=== PATIENT | female | born 1995 | race Caucasian/White ===

== ENCOUNTER → 2025-02-28 | Outpatient (CLI) | payer BC, SELFPAY ==
[2025-02-28 16:07] LABS: Absolute Neutrophil Count 4.8 X10^3/uL (2.0-7.7); Basophil# 0.01 X10^3/uL; Basophil% 0.1 % (0-1); Eosinophil# 0.09 X10^3/uL; Eosinophils% 1.3 % (0-5); Hematocrit 37.3 % (37-47); Hemoglobin 12.7 g/dL (12.0-15.0); Mean Corpuscular Hgb 31.1 pg (27.0-32.0); Mean Corpuscular Volume 91.2 fL (81-99); Mean Platelet Vol. 9.3 fl (6.2-12.0); Monocyte# 0.46 X10^3/uL; Monocyte% 6.5 % (0-10); NRBC Flagged by Analyzer 0 % (0-5); Neutrophil % 67.7 % (47-70); Platelet Count 240 K/mm3 (150-450); RBC Distribution Width CV 11.3 % (11.6-14.6); RBC Distribution Width SD 38.2 fl (35.1-43.9); Red Blood Count 4.09 M/mm3 (4.2-5.4); White Blood Count 7.1 K/mm3 (4.4-11.0)
[2025-02-28 17:06] LABS: HIV Nonreactive (Nonreactive); Hepatitis B Surface Antigen Nonreactive (Nonreactive); Hepatitis C Antibody Nonreactive (Nonreactive); Rubella IgG REAC (Nonreactive); Syphilis Antibodies Nonreactive (Nonreactive)
[2025-03-03 21:07] LABS: Chlamydia By Nucleic Acid AMP Negative (Negative); Gonococcus By Nucleic Acid AMP Negative (Negative)
[2025-03-05 07:59] LABS: HPV Reflexed? NOT INDICATED
== END | disposition home or self-care (01) ==
PROVIDERS: Nurse Practitioner Women's Health; Referring Provider Advanced Practice Midwife; Visit Provider Advanced Practice Midwife
DX: Z34.81 Encounter for supervision of other normal pregnancy, first trimester (principal)
CPT/HCPCS: 36415; 85025; 86703; 86762; 86780; 86803; 86850; 86900; 86901; 87086; 87088; 87340; 87491; 87591; 88175; G0145

== ENCOUNTER → 2025-07-14 | Outpatient (CLI) | payer BC, SELFPAY ==
[2025-07-14 16:56] LABS: Hematocrit 30.3 % (37-47); Hemoglobin 10.0 g/dL (12.0-15.0); Immature Granulocytes Count 0.080 X10^3/uL (0.0-0.0); Mean Corp Hgb Conc 33.0 g/dL (32-36); Mean Corpuscular Volume 102.7 fL (81-99); Mean Platelet Vol. 10.0 fl (6.2-12.0); NRBC Flagged by Analyzer 0 % (0-5); Platelet Count 170 K/mm3 (150-450); RBC Distribution Width CV 13.3 % (11.6-14.6); RBC Distribution Width SD 50.3 fl (35.1-43.9); Red Blood Count 2.95 M/mm3 (4.2-5.4); White Blood Count 8.8 K/mm3 (4.4-11.0)
[2025-07-14 17:51] LABS: Glucose Challenge Gest 1H 50g 107 mg/dL (70-140); HIV Nonreactive (Nonreactive); Syphilis Antibodies Nonreactive (Nonreactive)
== END | disposition home or self-care (01) ==
PROVIDERS: Referring Provider Obstetrics & Gynecology; Visit Provider Obstetrics & Gynecology
DX: Z34.81 Encounter for supervision of other normal pregnancy, first trimester (principal); Z13.1 Encounter for screening for diabetes mellitus
CPT/HCPCS: 36415; 82950; 85025; 86703; 86780

== ENCOUNTER → 2025-08-11 | Outpatient (CLI) | payer BC, SELFPAY ==
[2025-08-11 12:24] LABS: Hematocrit 35.1 % (37-47); Hemoglobin 11.7 g/dL (12.0-15.0); Immature Granulocytes Count 0.210 X10^3/uL (0.0-0.0); Mean Corp Hgb Conc 33.3 g/dL (32-36); Mean Corpuscular Volume 100.0 fL (81-99); Mean Platelet Vol. 9.9 fl (6.2-12.0); NRBC Flagged by Analyzer 0 % (0-5); Platelet Count 178 K/mm3 (150-450); RBC Distribution Width CV 13.6 % (11.6-14.6); RBC Distribution Width SD 49.3 fl (35.1-43.9); Red Blood Count 3.51 M/mm3 (4.2-5.4); White Blood Count 12.8 K/mm3 (4.4-11.0)
[2025-08-11 13:27] LABS: Ferritin 28 ng/mL (22-378); Iron 251 ug/dL (50-170); Iron Binding Capacity,Total 394 ug/dL (250-450); Iron Binding Capacity,Unsat 143 ug/dL (228-428); Vitamin B12 260 pg/mL (180-914)
== END | disposition home or self-care (01) ==
PROVIDERS: Obstetrics & Gynecology; Visit Provider Obstetrics & Gynecology
DX: O99.019 Anemia complicating pregnancy, unspecified trimester (principal); Z3A.00 Weeks of gestation of pregnancy not specified
CPT/HCPCS: 36415; 82607; 82728; 83540; 83550; 85025

== ENCOUNTER → 2025-09-18 | Outpatient (CLI) | payer BC, SELFPAY ==
[2025-09-18 12:27] LABS: Hematocrit 34.4 % (37-47); Hemoglobin 11.9 g/dL (12.0-15.0); Immature Granulocytes Count 0.150 X10^3/uL (0.0-0.0); Mean Corp Hgb Conc 34.6 g/dL (32-36); Mean Corpuscular Volume 98.0 fL (81-99); Mean Platelet Vol. 9.7 fl (6.2-12.0); NRBC Flagged by Analyzer 0 % (0-5); Platelet Count 211 K/mm3 (150-450); RBC Distribution Width CV 13.4 % (11.6-14.6); RBC Distribution Width SD 47.8 fl (35.1-43.9); Red Blood Count 3.51 M/mm3 (4.2-5.4); White Blood Count 13.1 K/mm3 (4.4-11.0)
== END | disposition home or self-care (01) ==
LOC: BWCLAB 11:33
PROVIDERS: Obstetrics & Gynecology; Visit Provider Nurse Practitioner Family
DX: O99.019 Anemia complicating pregnancy, unspecified trimester (principal); Z3A.00 Weeks of gestation of pregnancy not specified
CPT/HCPCS: 36415; 85025; 87081

== ENCOUNTER 2025-09-28 23:58 | Inpatient (IN) | payer BC, SELFPAY ==
[2025-09-29] VITALS (32 sets, daily range): BP systolic 95–141; BP diastolic 56–78; PULSE 74–132; RESP 16–18; TEMP 36.4–36.8; O2SAT 90–100; BMI 26.6
--- OUTSIDE RECORDS SUMMARY | 2025-09-29 00:01 | XMS RPT_ITS | CCD ---
Author Organization [facility] [place] [facility] Team Providers Care Merchandiser Retail Representative Name Role Phone Megan SIMONS-CTona Attending Provider [phone] Annette Adames CNM Attending Provider [phone] Annette Adames CNM Referring Provider [phone] Dr. Leeann Starr DO Attending Provider [facility], Primary Care Unavailable JOSEPH JOHNSON Attending Unavailable SABA SANTACRUZ Referring Unavaillaine Santacruz MD, Dr. Walter Attending Provider [phone] Annette Adames CNM Attending Provider [phone] Tona Griffiths Attending Provider [phone] Dr. Saba Santacruz MD Referring Provider [phone] Dr. Leeann Starr DO Attending Physician Annette Adames CNM Attending Physician [phone] Dr. Saba Santacruz MD Attending Physician Tona Griffiths Attending Physician [phone] Dr. Leeann Starr DO Attending Physician Saba Santacruz Attending Unavailable Annette Adames Attending Unavailable Saba Santacruz Attending Unavailable Annette Adames Attending Unavailable Annette Adames Referring Unavailable Saba Santacruz Attending Unavailable Saba Santacruz Referring Unavailable Tona Guzman NP Attending Unavailable Leeann Starr Attending UnavailAnnette Rodriguez Attending Unavailable Leeann Starr Attending UnavailLeeann Vaughan Attending UnavailAnnette Rodriguez Attending Unavailable Saba Santacruz Attending Unavailable Tona Guzman NP Attending Unavailable Leeann Starr Attending Unavaillaine myers Allergies Allergy Classification Reported Allergen(s) Allergy Type Date of Onset Reaction(s) Facility (1 source) Environmental Allergies: Uncoded; Translations: [Environmental Allergies: Uncoded] Propensity to adverse reactions (disorder) [facility] Repository Medications Current Medications Medication Drug Class(es) Dates Sig (Normalized) Sig (Original) fluticasone propionate 0.05 mg/actuat metered dose nasal spray (9 sources) Corticosteroid Start: 02-11-2025 take 50 ug nasal route every twelve hours as needed Fluticasone Propionate (Flonase Allergy Relief) 50 mcg/actuation spray,suspension Active 1 NMA INTRANASAL Q12H as needed February 11, 2025 12:00am administer into each nostril Complies with drug therapy loratadine 10 mg oral tablet (9 sources) Start: 02-11-2025 take 1 tablet by mouth once daily Loratadine (Claritin) 10 mg tablet Active 10 mg PO daily February 11, 2025 12:00am Complies with drug therapy Pnv No.454-Kq-Bk3-Dha-E pa-Fish 400 mcg-35 mg- 25 mg-5 mg tablet,chewable (9 sources) Start: 02-11-2025 Pnv No.210-Hl-Uy5-Dha- Epa-Fish 400 mcg-35 mg- 25 mg-5 mg tablet,chewable Active {tbl} PO February 11, 2025 12:00am Complies with drug therapy Start: 02-11-2025 Start: 02-11-2025 Pnv No.153-Fa- Lo0-Ewo-Qhn-Fish 400 mcg-35 mg- 25 mg-5 mg tablet,chewable Active {tbl} PO February 11, 2025 12:00am Problems Active Problems Problem Classification Problem Date Documented Da te Episodic/Chronic Menstrual disorders (20 sources) Amenorrhea; Translations: [Amenorrhea, unspecified] Onset: 05-22-2025 02-11-2025 Chronic Comment on above: +UPT Other complications of (7 sources) Anemia of ; Translations: [Anemia complicating , unspecified trimester] 07-16-2025 Chronic Comment on above: add Fe add Fe. Iron levels are now good. Other complications of (1 source) Anemia complicating , unspecified trimester; Translations: [Anemia complicating , unspecified trimester] Onset: 08-27-2025 Chronic Other complications of (20 sources) History of hemorrhage; Translations: [Supervision of with other poor reproductive or obstetric history, unspecified trimester] 02-11-2025 Episodic Comment on above: Pt states passed lar ge clots & had 2 shots Other complications of (1 source) Supervision of with other poor reproductive or obstetric history, unspecified trimester; Translations: [Supervision of with other poor reproductive or obstetric history, unspecified trimester] Onset: 08-25-2025 Episodic Other and delivery including normal (20 sources) Normal ; Translations: [Encounter for supervision of normal , unspecified, unspecified trimester] Onset: 06-20-2025 03-04-2025 Episodic Comment on above: [id number], DAISY 09/29/25 , Kem Byers, Bryan declined NIPT & Perez ier testing [id number], DAISY 09/29/25 , surprise Kem Byers, Bryan declined NIPT & Perez ier testing. anatomy done and ventricular septum not fully visualized patient declined follow up. Other screening for suspected conditions (not mental disorders or infectious disease) (2 sources) Encounter for screening for diabetes mellitus; Translations: [Encounter for screening for malignant neoplasm of cervix] Onset: 02-28-2025 Episodic Residual codes; unclassified (1 source) 35 weeks gestation of ; Translations: [35 weeks gestation of ] Onset: 08-25-2025 Episodic Residual codes; unclassified (1 source) 33 weeks gestation of ; Translations: [33 weeks gestation of ] Onset: 08-11-2025 Episodic Residual codes; unclassified (1 source) 31 weeks gestation of ; Translations: [31 weeks gestation of ] Onset: 08-01-2025 Episodic Residual codes; unclassified (1 source) 25 weeks gestation of ; Translations: [25 weeks gestation of ] Onset: 06-20-2025 Episodic Past or Other Problems Problem Classification Problem Date Documented Da te Episodic/Chronic Residual codes; unclassified (1 source) 21 weeks gestation of ; Translations: [21 weeks gestation of ] Onset: 07-24-2025 Episodic Residual codes; unclassified (1 source) 9 weeks gestation of ; Translations: [9 weeks gestation of ] Onset: 02-28-2025 Episodic Results Test Name Value Interpretation Reference Range Facility Laboratory - Chemistry and C hemistry - challengeOrdered By: Annette Adames on 08-25-2025 Glucose Ql (U) Negative [facility] Laboratory - UrinalysisOrder ed By: Annette Adames on 08-25-2025 Protein Ql (U) Negative [facility] Veterinary Radiologist Office Visit Reporton 08-25-2025 Veterinary Radiologist Office Visit Report [facility] [address], [address] [place] [address] OFFICE VISIT Date of Service: 08/25/25 MR#: [id number] Acct: [id number] Name: MERRY CAMPOS Rep #: [id number] : 1995 Provider: JEY Naranjo ams Age/Sex: 30/F Location: [facility] Status: Signed Intake Vital Signs 07/14/25 12:54 08/11/25 09:26 08/25/25 09:14 Height 5 ft 4 in 5 ft 4 in 5 ft 4 in Weight: 155 lb 6 oz BMI 26.6 BP 121/68 H Intake Visit Reasons: 35w ob *PT LEAVING 08/31-09/09 Chief Complaint: 35wk OB Endodontics Dentist Required: No Is patient in pain?: No Allergies Environmental Allergies: Uncoded Allergy (Verified 08/25/25 09:12) Other Medications ???Medication ???Instructions ???Recorded ???Confirmed ???Type PNV 153-FA 400 mcg-om3 35 mg-dha tab PO 02/11/25 08/25/25 History 25 mg-epa 5 mg-fish oil chew tablet fluticasone propionate 50 1 spray intranasal Q12H PRN 08/25/25 History mcg/actuation nasal spray,suspension (Flonase Allergy Relief) loratadine 10 mg tablet (Claritin) 10 mg PO QDAY 02/11/25 08/25/25 History Last Menstrual Period: 12/23/24 : No Have you fallen in the past year?: No PFSH PFSH Medical History Seasonal allergies Surgical History Fred teeth extracted Family History Uncle Diabetes Maternal Grandfather Diabetes Maternal Dementia, Onset Age: 80 Paternal Social History adopted: No household members: spouse, family and children housing: house number of children: 2 current occupational status: unemployed current occupation: [employer] current occupational exposures/hazards: No pets and animals: Yes (Avoid litterbox) pets and animals: cat(s) and dog(s) history of recent travel: No sexually active: Yes Smoking Status: Never smoker alcohol intake: current alcohol intake frequency: a few times a month details: Not while substance use type: does not use well-balanced diet: daily or most days caffeine: Yes (Clean [employer] in afternoon- 74mg caffeine. Education to stay under 200mg/day) Type: coffee Number of servings: 1 and other Number of servings: 1 eating out: 1-3 times/week during the past year weight has: remained stable what type of physical activity do you participate in: other details: farm chores frequency: daily duration: 45-60 minutes/day farhad/taoist: Yarsanism seatbelt use: always do you feel safe at home: Yes additional social history: - [place]- Sales History 3 Elective abortions Hx Para 2 Spontaneous abortions Hx # Term Pregnancies Ectopic pregnancies Hx # Pregnancies Multiple births # of living children 2 Past Pregnancies Del. Date Name GA/Weeks Outcome Route Bth Weight Gen Labor Lgth Anesthesia Del Locatn Provider FOB 02/20/21 Hair 40 live - full term 8# 6oz Male epidural [place] Aul tman [place] 09/21/22 Kem 40 live - full term 8# 12oz Male epidural Maurilio Marcos sas [place] Delivery Date: 09/21/22 Last Updated by: Sylvie Lofton elective IOL @ 40wks, large clots after delivery, had injection to stop bleeding, anemic HPI 35w ob *PT LEAVING 08/31-09/09 Details: MERRY CAMPOS is a 30 year old who presents for routine OB visit. OB Visit DAISY Calculator Estimated Delivery Date Method Current WG Current Estimate 09/29/25 LMP (Certain) 35w 0d Other Estimates 09/26/25 Ultrasound #1 35w 3d Expected Delivery Route/Plan Labor Preferences- CB/BF classes: no labor support person: Rex labor intervention preferences: [] pain management options preferred: epidural cut cord/dad catch: yes : yes PP control planned: discussed discussed possible routes of delivery and associated risks: [] special requests: [] Specific Issue/Plans Covid status: [] Flu vaccine: [] Tdap vaccine: declines Rhogam: NA LARC form signed: yes Problem list reviewed and updated with the most current plan of care details and appropriate orders placed. Relevant counseling for the gestational age provided. Continue routine care and follow up unless otherwise noted in visit notes/problem list details Initial Weight: 130 lb Date -???-???-???-???-? ??-???-???-???-??? -???-???-???- EGA Weight BP Urine Prot -???-???-???-???-? ??-???-???-???-??? -???-???-???- Glucose FHR FuHt Pres Dilation -???-???-???-???-? ??-???-???-???-??? -???-???-???- Effaced St Visit Note 02/28/25 -???-???-???-???-? ??-???-???-???-??? -???-???-???- 9w 4d 130 lb 4 oz (+4 oz) 107/67 -???-???-???-???-? ??-???-??? (more content not included)... Normal [facility] Absolute lymphocyte countOrd ered By: Leeann Astudillo on 08-11-2025 Lymphocytes Auto (Unsp spec) [#/Vol] 1.45 10*3/uL 0.83-4.51 [facility] Absolute neutrophil countOrd ered By: Leeann Astudillo on 08-11-2025 Neutrophils (Bld) [#/Vol] 10.4 10*3/uL High 2.0-7.7 [facility] Automated lymphocyte count a s percentage of total leukocytesOrdered By: Leeann Astudillo on 08-11-2025 Lymphocytes/100 WBC Auto (Unsp spec) 11.3 % Low 19-41 [facility] Basophil percentageOrdered B y: Leeann Astudillo on 08-11-2025 Basophils/100 WBC (Bld) 0.3 % 0-1 [facility] CBC W/Diff, Automatedon 07-30 Absolute Lymph 1.45 X10 3/uL Normal 0.83-4.51 [facility] Comment on above: Performed By: #### L 3890.6006, BTS, L509.4006, L509.8002, L3890.6301, L100.0100, L3890.6102 #### [facility] [address] [place], [address] Absolute Neut 10.4 X10 3/uL High 2.0-7.7 [facility] Comment on above: Performed By: #### L 3890.6006, BTS, L509.4006, L509.8002, L3890.6301, L100.0100, L3890.6102 #### [facility] [address] [place], [address] Basophils/100 WBC (Bld) 0.3 % Normal 0-1 [facility] Comment on above: Performed By: #### L 3890.6006, BTS, L509.4006, L509.8002, L3890.6301, L100.0100, L3890.6102 #### [facility] [address] [place], [address] Eosinophils/100 WBC (Bld) 0.3 % Normal 0-5 [facility] Comment on above: Performed By: #### L 3890.6006, BTS, L509.4006, L509.8002, L3890.6301, L100.0100, L3890.6102 #### [facility] [address] [place], [address] Erythrocyte distribution width (RBC) [Ratio] 13.6 % Normal 11.6-14.6 [facility] Comment on above: Performed By: #### L 3890.6006, BTS, L509.4006, L509.8002, L3890.6301, L100.0100, L3890.6102 #### [facility] [address] [place], [address] Hematocrit (Bld) [Volume fraction] 35.1 % Low 37-47 [facility] Comment on above: Performed By: #### L 3890.6006, BTS, L509.4006, L509.8002, L3890.6301, L100.0100, L3890.6102 #### [facility] [address] [place], [address] Hemoglobin (Bld) [Mass/Vol] 11.7 g/dL Low 12.0-15.0 [facility] Comment on above: Performed By: #### L 3890.6006, BTS, L509.4006, L509.8002, L3890.6301, L100.0100, L3890.6102 #### [facility] [address] [place], [address] IG% 1.600 High 0.0-0.9 [facility] Comment on above: Result Comment: IG% - Immature Granulocytes (promyelocytes, myelocytes and metamyelocytes) > 1% indicates that a LEFT SHIFT is Present. Performed By: #### L 3890.6006, BTS, L509.4006, L509.8002, L3890.6301, L100.0100, L3890.6102 #### [facility] [address] [place], [address] Lymphocytes/100 WBC (Bld) 11.3 % Low 19-41 [facility] Comment on above: Performed By: #### L 3890.6006, BTS, L509.4006, L509.8002, L3890.6301, L100.0100, L3890.6102 #### [facility] [address] [place], [address] MCH (RBC) [Entitic mass] 33.3 pg High 27.0-32.0 [facility] Comment on above: Performed By: #### L 3890.6006, BTS, L509.4006, L509.8002, L3890.6301, L100.0100, L3890.6102 #### [facility] [address] [place], [address] MCHC (RBC) [Mass/Vol] 33.3 g/dL Normal 32-36 [facility] Comment on above: Performed By: #### L 3890.6006, BTS, L509.4006, L509.8002, L3890.6301, L100.0100, L3890.6102 #### [facility] [address] [place], [address] MCV (RBC) [Entitic vol] 100.0 fL High 81-99 [facility] Comment on above: Performed By: #### L 3890.6006, BTS, L509.4006, L509.8002, L3890.6301, L100.0100, L3890.6102 #### [facility] [address] [place], [address] Monocytes/100 WBC (Bld) 5.4 % Normal 0-10 [facility] Comment on above: Performed By: #### L 3890.6006, BTS, L509.4006, L509.8002, L3890.6301, L100.0100, L3890.6102 #### [facility] [address] [place], [address] Neutrophils/100 WBC (Bld) 81.1 % High 47-70 [facility] Comment on above: Performed By: #### L 3890.6006, BTS, L509.4006, L509.8002, L3890.6301, L100.0100, L3890.6102 #### [facility] [address] [place], [address] Nucleated RBC (Bld) [#/Vol] 0 10*3/uL Normal 0-5 [facility] Comment on above: Performed By: #### L 3890.6006, BTS, L509.4006, L509.8002, L3890.6301, L100.0100, L3890.6102 #### [facility] [address] [place], [address] Platelet mean volume (Bld) [Entitic vol] 9.9 fL Normal 6.2-12.0 [facility] Comment on above: Performed By: #### L 3890.6006, BTS, L509.4006, L509.8002, L3890.6301, L100.0100, L3890.6102 #### [facility] [address] [place], [address] Platelets (Bld) [#/Vol] 178 10*3/uL Normal 150-450 [facility] Comment on above: Performed By: #### L 3890.6006, BTS, L509.4006, L509.8002, L3890.6301, L100.0100, L3890.6102 #### [facility] [address] [place], [address] RBC (Bld) [#/Vol] 3.51 10*6/uL Low 4.2-5.4 [facility] Comment on above: Performed By: #### L 3890.6006, BTS, L509.4006, L509.8002, L3890.6301, L100.0100, L3890.6102 #### [facility] [address] [place], [place], [id number] (299 RDW SD 49.3 fl High 35.1-43.9 [facility] Comment on above: Performed By: #### L 3890.6006, BTS, L509.4006, L509.8002, L3890.6301, L100.0100, L3890.6102 #### [facility] [address] [place], [place], [address] WBC (Bld) [#/Vol] 12.8 10*3/uL High 4.4-11.0 [facility] Comment on above: Performed By: #### L 3890.6006, BTS, L509.4006, L509.8002, L3890.6301, L100.0100, L3890.6102 #### [facility] [address] [place], [place], [id number] Eosinophil percentageOrdered By: Leeann Astudillo on 08-11-2025 Eosinophils/100 WBC (Bld) 0.3 % 0-5 [facility] Erythrocyte distribution wid th ratioOrdered By: Leeann Astudillo on 08-11-2025 Erythrocyte distribution width (RBC) [Ratio] 13.6 % 11.6-14.6 [facility] Erythrocyte distribution wid th standard deviationOrdered By: Leeann Astudillo on 08-11-2025 Erythrocyte distribution width (RBC) [Ratio] 49.3 fl High 35.1-43.9 [facility] Ferritinon 08-11-2025 Ferritin [Mass/Vol] 28 ng/mL Normal 22-378 [facility] Comment on above: Performed By: #### L 3890.6006, BTS, L509.4006, L509.8002, L3890.6301, L100.0100, L3890.6102 #### [facility] [address] [place], [address] Hematocrit Auto (Bld) [Volum e fraction]Ordered By: Leeann Astudillo on 08-11-2025 Hematocrit (Bld) [Volume fraction] 35.1 % Low 37-47 [facility] Hemoglobin measurementOrdere d By: Leeann Astudillo on 08-11-2025 Hemoglobin (Bld) [Mass/Vol] 11.7 g/dL Low 12.0-15.0 [facility] Immature granulocytes/100 WB C Auto (Bld)Ordered By: Leeann Astudillo on 08-11-2025 Immature granulocytes/100 WBC (Bld) 1.600 % High 0.0-0.9 [facility] Comment on above: IG% - Immature Granu locytes (promyelocytes, myelocytes and metamyelocytes) > 1% indicates that a LEFT SHIFT is Present. Iron measurement (mass/mass) Ordered By: Leeann Astudillo on 08-11-2025 Iron (Unsp spec) [Mass/Mass] 251 ug/dL High 50-170 [facility] Iron+Iron Binding Capacityon 08-11-2025 Iron [Mass/Vol] 251 ug/dL High 50-170 [facility] Comment on above: Performed By: #### L 3890.6006, BTS, L509.4006, L509.8002, L3890.6301, L100.0100, L3890.6102 #### [facility] [address] [place], [address] IRON SATURATION 63.7 High 13-59 [facility] Comment on above: Performed By: #### L 3890.6006, BTS, L509.4006, L509.8002, L3890.6301, L100.0100, L3890.6102 #### [facility] [address] [place], [address] TIBC 394 ug/dL Normal 250-450 [facility] Comment on above: Performed By: #### L 3890.6006, BTS, L509.4006, L509.8002, L3890.6301, L100.0100, L3890.6102 #### [facility] [address] [place], [address] UIBC 143 ug/dL Low 228-428 [facility] Comment on above: Performed By: #### L 3890.6006, BTS, L509.4006, L509.8002, L3890.6301, L100.0100, L3890.6102 #### [facility] [address] [place], [place], [address] Laboratory - Chemistry and C hemistry - challengeOrdered By: Saba Santacruz on 08-11-2025 Glucose Ql (U) Negative [facility] - UrinalysisOrder ed By: Saba Santacruz on 08-11-2025 Protein Ql (U) Negative [facility] MCV (mean corpuscular volume ) determinationOrdered By: Leeann Astudillo on 08-11-2025 MCV (RBC) [Entitic vol] 100.0 fL High 81-99 [facility] Mean corpuscular hemoglobin (MCH) determinationOrdered By: Leeann Astudillo on 08-11-2025 MCH (RBC) [Entitic mass] 33.3 pg High 27.0-32.0 [facility] Mean corpuscular hemoglobin concentration (MCHC) determinationOrdered By: Leeann Astudillo on 08-11-2025 MCHC (RBC) [Mass/Vol] 33.3 g/dL 32-36 [facility] Mean platelet volume determi nationOrdered By: Leeann Astudillo on 08-11-2025 Platelet mean volume (Bld) [Entitic vol] 9.9 fL 6.2-12.0 [facility] Monocyte percentageOrdered B y: Leeann Astudillo on 08-11-2025 Monocytes/100 WBC (Bld) 5.4 % 0-10 [facility] Neutrophil percentageOrdered By: Leeann Astudillo on 08-11-2025 Neutrophils/100 WBC (Bld) 81.1 % High 47-70 [facility] No Panel InformationOrdered By: Leeann Baudilio on 08-11-2025 Unsaturated Iron Binding Capacity 143 ug/dL Low 228-428 [facility] Nucleated red blood cell per centageOrdered By: Leeann Baudilio on 08-11-2025 Nucleated RBC/100 WBC (Bld) [Ratio] 0 % 0-5 [facility] Veterinary Radiologist Office Visit Reporton 08-11-2025 Veterinary Radiologist Office Visit Report [facility] [address], [address] [place] [address] OFFICE VISIT Date of Service: 08/11/25 MR#: [id number] Acct: [id number] Name: MERRY CAMPOS Rep #: [id number] : 1995 Provider: Dr. Saba urrutia MD Age/Sex: 30/F Location: [facility] Status: Signed Intake Vital Signs 05/22/25 09:21 08/01/25 09:37 08/11/25 09:26 Height 5 ft 4 in 5 ft 4 in 5 ft 4 in Weight: 151 lb 5 oz BMI 25.9 BP 105/69 Intake Visit Reasons: 33 wk ob Endodontics Dentist Required: No Is patient in pain?: No Allergies Environmental Allergies: Uncoded Allergy (Verified 08/11/25 09:27) Other Medications ???Medication ???Instructions ???Recorded ???Confirmed ???Type PNV 153-FA 400 mcg-om3 35 mg-dha tab PO 02/11/25 08/11/25 History 25 mg-epa 5 mg-fish oil chew tablet fluticasone propionate 50 1 spray intranasal Q12H PRN 08/11/25 History mcg/actuation nasal spray,suspension (Flonase Allergy Relief) loratadine 10 mg tablet (Claritin) 10 mg PO QDAY 02/11/25 08/11/25 History Last Menstrual Period: 12/23/24 Zika: Zika virus screening: Negative : No PFSH PFSH Medical History Seasonal allergies Surgical History Fred teeth extracted Family History Uncle Diabetes Maternal Grandfather Diabetes Maternal Dementia, Onset Age: 80 Paternal Social History adopted: No household members: spouse, family and children housing: house number of children: 2 current occupational status: unemployed current occupation: [employer] current occupational exposures/hazards: No pets and animals: Yes (Avoid litterbox) pets and animals: cat(s) and dog(s) history of recent travel: No sexually active: Yes Smoking Status: Never smoker alcohol intake: current alcohol intake frequency: a few times a month details: Not while substance use type: does not use well-balanced diet: daily or most days caffeine: Yes ([employer] in afternoon- 74mg caffeine. Education to stay under 200mg/day) Type: coffee Number of servings: 1 and other Number of servings: 1 eating out: 1-3 times/week during the past year weight has: remained stable what type of physical activity do you participate in: other details: farm chores frequency: daily duration: 45-60 minutes/day farhad/taoist: Yarsanism seatbelt use: always do you feel safe at home: Yes additional social history: - [place]- Sales History 3 Elective abortions Hx Para 2 Spontaneous abortions Hx # Term Pregnancies Ectopic pregnancies Hx # Pregnancies Multiple births # of living children 2 Past Pregnancies Del. Date Name GA/Weeks Outcome Route Bth Weight Infant Gen Labor Lgth Anesthesia Del Locatn Provider FOB 02/20/21 Hair 40 live - full term 8# 6oz Male epidural [place] Aul tman [place] 09/21/22 Kem 40 live - full term 8# 12oz Male epidural Maurilio Marcos sas [place] Delivery Date: 09/21/22 Last Updated by: Sylvie Lofton elective IOL @ 40wks, large clots after delivery, had injection to stop bleeding, anemic HPI 33 wk ob Details: MERRY CAMPOS is a 30 year old who presents for routine OB visit. OB Visit DAISY Calculator Estimated Delivery Date Method Current WG Current Estimate 09/29/25 LMP (Certain) 33w 0d Other Estimates 09/26/25 Ultrasound #1 33w 3d Expected Delivery Route/Plan Labor Preferences- CB/BF classes: no labor support person: Rex labor intervention preferences: [] pain management options preferred: epidural cut cord/dad catch: yes : yes PP control planned: discussed discussed possible routes of delivery and associated risks: [] special requests: [] Specific Issue/Plans Covid status: [] Flu vaccine: [] Tdap vaccine: declines Rhogam: NA LARC form signed: yes Problem list reviewed and updated with the most current plan of care details and appropriate orders placed. Relevant counseling for the gestational age provided. Continue routine care and follow up unless otherwise noted in visit notes/problem list details Initial Weight: 130 lb Date -???-???-???-???-? ??-???-???-???-??? -???-???-???- EGA Weight BP Urine Prot -???-???-???-???-? ??-???-???-???-??? -???-???-???- Glucose FHR FuHt Pres Dilation -???-???-???-???-? ??-???-???-???-??? -???-???-???- Effaced St Visit Note 02/28/25 -???-???-???-???-? ??-???-???-???-??? -???-???-???- 9w 4d 130 lb 4 oz (+4 oz) 107/67 -???-???-???-???-? ??-???-???-???-??? -???-???-???- 173 -???-???-???-???-? ??-? (more content not included)... Normal [facility] Platelet countOrdered By: Jose Astudillo on 08-11-2025 Platelets (Bld) [#/Vol] 178 10*3/uL 150-450 [facility] RBC Auto (Bld) [#/Vol]Ordere d By: Leeann Astudillo on 08-11-2025 RBC (Bld) [#/Vol] 3.51 10*6/uL Low 4.2-5.4 [facility] Serum or plasma ferritin hari surement (mass/volume)Ordered By: Leeann Astudillo on 08-11-2025 Ferritin [Mass/Vol] 28 ng/mL 22-378 [facility] Serum or plasma iron saturat ion measurement (mass fraction)Ordered By: Leeann Astudillo on 08-11-2025 Iron saturation [Mass fraction] 63.7 % High 13-59 [facility] Vitamin B12on 08-11-2025 Cobalamin (Vitamin B12) [Mass/Vol] 260 pg/mL Normal 180-914 [facility] Comment on above: Performed By: #### L 3890.6006, BTS, L509.4006, L509.8002, L3890.6301, L100.0100, L3890.6102 #### [facility] [address] [place], [address] Vitamin B12 ser/plasOrdered By: Leeann Astudillo on 08-11-2025 Cobalamin (Vitamin B12) [Mass/Vol] 260 pg/mL 180-914 [facility] White blood cell (WBC) count Ordered By: Leeann Astudillo on 08-11-2025 WBC (Bld) [#/Vol] 12.8 10*3/uL High 4.4-11.0 [facility] Veterinary Radiologist Office Visit Reporton 08-01-2025 Veterinary Radiologist Office Visit Report [facility]'s [address], [address] [place] [address] OFFICE VISIT Date of Service: 08/01/25 MR#: [id number] Acct: [id number] Name: MERRY CAMPOS Rep #: [id number] 0 : 1995 Provider: Dr. Leeann Chen DO Age/Sex: 30/F Location: [facility] Status: Signed Intake Vital Signs 05/22/25 09:21 07/14/25 12:54 08/01/25 09:37 Height 5 ft 4 in 5 ft 4 in 5 ft 4 in Weight: 148 lb 9 oz BMI 25.4 BP 110/71 Intake Visit Reasons: 31 wk 4d ob Endodontics Dentist Required: No Is patient in pain?: No Allergies Environmental Allergies: Uncoded Allergy (Verified 08/01/25 09:39) Other Medications ???Medication ???Instructions ???Recorded ???Confirmed ???Type PNV 153-FA 400 mcg-om3 35 mg-dha tab PO 02/11/25 08/01/25 History 25 mg-epa 5 mg-fish oil chew tablet fluticasone propionate 50 1 spray intranasal Q12H PRN 08/01/25 History mcg/actuation nasal spray,suspension (Flonase Allergy Relief) loratadine 10 mg tablet (Claritin) 10 mg PO QDAY 02/11/25 08/01/25 History Last Menstrual Period: 12/23/24 Zika: Zika virus screening: Negative : No PFSH PFSH Medical History Seasonal allergies Surgical History Fred teeth extracted Family History Uncle Diabetes Maternal Grandfather Diabetes Maternal Dementia, Onset Age: 80 Paternal Social History adopted: No household members: spouse, family and children housing: house number of children: 2 current occupational status: unemployed current occupation: [employer] current occupational exposures/hazards: No pets and animals: Yes (Avoid litterbox) pets and animals: cat(s) and dog(s) history of recent travel: No sexually active: Yes Smoking Status: Never smoker alcohol intake: current alcohol intake frequency: a few times a month details: Not while substance use type: does not use well-balanced diet: daily or most days caffeine: Yes (Clean Energy in afternoon- 74mg caffeine. Education to stay under 200mg/day) Type: coffee Number of servings: 1 and other Number of servings: 1 eating out: 1-3 times/week during the past year weight has: remained stable what type of physical activity do you participate in: other details: farm chores frequency: daily duration: 45-60 minutes/day farhad/taoist: Yarsanism seatbelt use: always do you feel safe at home: Yes additional social history: - Bryan- Juan History 3 Elective abortions Hx Para 2 Spontaneous abortions Hx # Term Pregnancies Ectopic pregnancies Hx # Pregnancies Multiple births # of living children 2 Past Pregnancies Del. Date Name GA/Weeks Outcome Route Bth Weight Infant Gen Labor Lgth Anesthesia Del Locatn Provider FOB 02/20/21 Hair 40 live - full term 8# 6oz Male epidural [place] Aul tman [place] 09/21/22 [place] 40 live - full term 8# 12oz Male epidural Maurilio Marcos sas [place] Delivery Date: 09/21/22 Last Updated by: Sylvie Lofton elective IOL @ 40wks, large clots after delivery, had injection to stop bleeding, anemic HPI 31 wk 4d ob Details: MERRY CAMPOS is a 30 year old who presents for routine OB visit. OB Visit DAISY Calculator Estimated Delivery Date Method Current WG Current Estimate 09/29/25 LMP (Certain) 31w 4d Other Estimates 09/26/25 Ultrasound #1 32w 0d Expected Delivery Route/Plan Labor Preferences- CB/BF classes: no labor support person: Rex labor intervention preferences: [] pain management options preferred: epidural cut cord/dad catch: yes : yes PP control planned: discussed discussed possible routes of delivery and associated risks: [] special requests: [] Specific Issue/Plans Covid status: [] Flu vaccine: [] Tdap vaccine: declines Rhogam: NA LARC form signed: yes Problem list reviewed and updated with the most current plan of care details and appropriate orders placed. Relevant counseling for the gestational age provided. Continue routine care and follow up unless otherwise noted in visit notes/problem list details Initial Weight: 130 lb Date -???-???-???-???-? ??-???-???-???-??? -???-???-???- EGA Weight BP Urine Prot -???-???-???-???-? ??-???-???-???-??? -???-???-???- Glucose FHR FuHt Pres Dilation -???-???-???-???-? ??-???-???-???-??? -???-???-???- Effaced St Visit Note 02/28/25 -???-???-???-???-? ??-???-???-???-??? -???-???-???- 9w 4d 130 lb 4 oz (+4 oz) 107/67 -???-???-???-???-? ??-???-???-???-??? -???-???-???- 173 -? (more content not included)... Normal [facility] Absolute lymphocyte countOrd ered By: Saba Latiftroy on 07-14-2025 Lymphocytes Auto (Unsp spec) [#/Vol] 0.86 10*3/uL 0.83-4.51 [facility] Absolute neutrophil countOrd ered By: Saba Latiftroy on 07-14-2025 Neutrophils (Bld) [#/Vol] 7.0 10*3/uL 2.0-7.7 [facility] Automated lymphocyte count a s percentage of total leukocytesOrdered By: Saba Brayan on 07-14-2025 Lymphocytes/100 WBC Auto (Unsp spec) 9.8 % Low 19-41 [facility] Basophil percentageOrdered B y: Saba Brayan on 07-14-2025 Basophils/100 WBC (Bld) 0.2 % 0-1 [facility] CBC W/Diff, Automatedon 06-30 Absolute Lymph 0.86 X10 3/uL Normal 0.83-4.51 [facility] Comment on above: Performed By: #### L 3890.6006, L100.0100, L501.0250, L509.8002 #### [facility] [address] [place], [address] Absolute Neut 7.0 X10 3/uL Normal 2.0-7.7 [facility] Comment on above: Performed By: #### L 3890.6006, L100.0100, L501.0250, L509.8002 #### [facility] [address] [place], [address] Basophils/100 WBC (Bld) 0.2 % Normal 0-1 [facility] Comment on above: Performed By: #### L 3890.6006, L100.0100, L501.0250, L509.8002 #### [facility] [address] [place], [address] Eosinophils/100 WBC (Bld) 1.1 % Normal 0-5 [facility] Comment on above: Performed By: #### L 3890.6006, L100.0100, L501.0250, L509.8002 #### [facility] [address] [place], [address] Erythrocyte distribution width (RBC) [Ratio] 13.3 % Normal 11.6-14.6 [facility] Comment on above: Performed By: #### L 3890.6006, L100.0100, L501.0250, L509.8002 #### [facility] [address] [place], [address] Hematocrit (Bld) [Volume fraction] 30.3 % Low 37-47 [facility] Comment on above: Performed By: #### L 3890.6006, L100.0100, L501.0250, L509.8002 #### [facility] [address] [place], [address] Hemoglobin (Bld) [Mass/Vol] 10.0 g/dL Low 12.0-15.0 [facility] Comment on above: Performed By: #### L 3890.6006, L100.0100, L501.0250, L509.8002 #### [facility] [address] [place], [address] IG% 0.900 Normal 0.0-0.9 [facility] Comment on above: Result Comment: IG% - Immature Granulocytes (promyelocytes, myelocytes and metamyelocytes) > 1% indicates that a LEFT SHIFT is Present. Performed By: #### L 3890.6006, L100.0100, L501.0250, L509.8002 #### [facility] [address] [place], [address] Lymphocytes/100 WBC (Bld) 9.8 % Low 19-41 [facility] Comment on above: Performed By: #### L 3890.6006, L100.0100, L501.0250, L509.8002 #### [facility] [address] [place], [address] MCH (RBC) [Entitic mass] 33.9 pg High 27.0-32.0 [facility] Comment on above: Performed By: #### L 3890.6006, L100.0100, L501.0250, L509.8002 #### [facility] [address] [place], [address] MCHC (RBC) [Mass/Vol] 33.0 g/dL Normal 32-36 [facility] Comment on above: Performed By: #### L 3890.6006, L100.0100, L501.0250, L509.8002 #### [facility] [address] [place], [address] MCV (RBC) [Entitic vol] 102.7 fL High 81-99 [facility] Comment on above: Performed By: #### L 3890.6006, L100.0100, L501.0250, L509.8002 #### [facility] [address] [place], [address] Monocytes/100 WBC (Bld) 8.0 % Normal 0-10 [facility] Comment on above: Performed By: #### L 3890.6006, L100.0100, L501.0250, L509.8002 #### [facility] [address] [place], [address] Neutrophils/100 WBC (Bld) 80.0 % High 47-70 [facility] Comment on above: Performed By: #### L 3890.6006, L100.0100, L501.0250, L509.8002 #### [facility] [address] [place], [address] Nucleated RBC (Bld) [#/Vol] 0 10*3/uL Normal 0-5 [facility] Comment on above: Performed By: #### L 3890.6006, L100.0100, L501.0250, L509.8002 #### [facility] [address] [place], [address] Platelet mean volume (Bld) [Entitic vol] 10.0 fL Normal 6.2-12.0 [facility] Comment on above: Performed By: #### L 3890.6006, L100.0100, L501.0250, L509.8002 #### [facility] [address] [place], [address] Platelets (Bld) [#/Vol] 170 10*3/uL Normal 150-450 [facility] Comment on above: Performed By: #### L 3890.6006, L100.0100, L501.0250, L509.8002 #### [facility] [address] [place], [address] RBC (Bld) [#/Vol] 2.95 10*6/uL Low 4.2-5.4 [facility] Comment on above: Performed By: #### L 3890.6006, L100.0100, L501.0250, L509.8002 #### [facility] [address] [place], [address] RDW SD 50.3 fl High 35.1-43.9 [facility] Comment on above: Performed By: #### L 3890.6006, L100.0100, L501.0250, L509.8002 #### [facility] [address] [place], [address] WBC (Bld) [#/Vol] 8.8 10*3/uL Normal 4.4-11.0 [facility] Comment on above: Performed By: #### L 3890.6006, L100.0100, L501.0250, L509.8002 #### [facility] [address] [place], [address] Eosinophil percentageOrdered By: Saba Santacruz on 07-14-2025 Eosinophils/100 WBC (Bld) 1.1 % 0-5 [facility] Erythrocyte distribution wid th ratioOrdered By: Saba Santacruz on 07-14-2025 Erythrocyte distribution width (RBC) [Ratio] 13.3 % 11.6-14.6 [facility] Erythrocyte distribution wid th standard deviationOrdered By: Saba Santacruz on 07-14-2025 Erythrocyte distribution width (RBC) [Ratio] 50.3 fl High 35.1-43.9 [facility] Glucose Challenge Gest 1H 50 farrukh 07-14-2025 GLU GEST 50g 1H 107 mg/dL Normal 70-140 [facility] Comment on above: Performed By: #### L 3890.6006, L100.0100, L501.0250, L509.8002 #### [facility] [address] [place], [address] Glucose measurement at 2 marco rs post-dose gestational glucose tolerance testOrdered By: Saba Santacruz on 07-14-2025 Glucose [Mass/Vol] 107 mg/dL 70-140 [facility] HIVon 07-14-2025 HIV Non-Reactive Normal Nonreactive [facility] Comment on above: Result Comment: Non- Reactive Reactive Repeatedly reactive samples must be confirmed according to CDC recommended confirmatory algorithms. The subresults for either HIVAG or AHIV can be used as an aid in the selection of the confirmation algorithm for reactive samples. Send out specimens with Reactive results to [facility] for confirmation. Order the HIV antibody detection and differentiation: lc#[id number] Performed By: #### L 3890.6006, BTS, L509.4006, L509.8002, L3890.6301, L100.0100, L3890.6102 #### [facility] [address] [place], [address] Hematocrit Auto (Bld) [Volum e fraction]Ordered By: Saba Santacruz on 07-14-2025 Hematocrit (Bld) [Volume fraction] 30.3 % Low 37-47 [facility] Hemoglobin measurementOrdere d By: Saba Santacruz on 07-14-2025 Hemoglobin (Bld) [Mass/Vol] 10.0 g/dL Low 12.0-15.0 [facility] Immature granulocytes/100 WB C Auto (Bld)Ordered By: Saba Santacruz on 07-14-2025 Immature granulocytes/100 WBC (Bld) 0.900 % 0.0-0.9 [facility] Comment on above: IG% - Immature Granu locytes (promyelocytes, myelocytes and metamyelocytes) > 1% indicates that a LEFT SHIFT is Present. Laboratory - Chemistry and C hemistry - challengeOrdered By: Tona Guzman on 07-14-2025 Glucose Ql (U) Negative [facility] - UrinalysisOrder ed By: Tona Guzman on 07-14-2025 Protein Ql (U) Negative [facility] MCV (mean corpuscular volume ) determinationOrdered By: Saba Santacruz on 07-14-2025 MCV (RBC) [Entitic vol] 102.7 fL High 81-99 [facility] Mean corpuscular hemoglobin (MCH) determinationOrdered By: Saba Brayan on 07-14-2025 MCH (RBC) [Entitic mass] 33.9 pg High 27.0-32.0 [facility] Mean corpuscular hemoglobin concentration (MCHC) determinationOrdered By: Saba Brayan on 07-14-2025 MCHC (RBC) [Mass/Vol] 33.0 g/dL 32-36 [facility] Mean platelet volume determi nationOrdered By: Saba Santacruz on 07-14-2025 Platelet mean volume (Bld) [Entitic vol] 10.0 fL 6.2-12.0 [facility] Monocyte percentageOrdered B y: Saba Brayan on 07-14-2025 Monocytes/100 WBC (Bld) 8.0 % 0-10 [facility] Neutrophil percentageOrdered By: Sababrenda Santacruz on 07-14-2025 Neutrophils/100 WBC (Bld) 80.0 % High 47-70 [facility] No Panel InformationOrdered By: Saba Brayan on 07-14-2025 HIV (1&2) Antibody Non-Reactive Nonreactive [facility] Comment on above: Non-ReactiveReactive Repeatedly reactive samples must be confirmed according to CDC recommended confirmatory algorithms. The subresults for either HIVAG or AHIV can be used as an aid in the selection of the confirmation algorithm for reactive samples.Send out specimens with Reactive results to [facility] for confirmation.Order the HIV antibody detection and differentiation: #[id number] Nucleated red blood cell per centageOrdered By: Saba Brayan on 07-14-2025 Nucleated RBC/100 WBC (Bld) [Ratio] 0 % 0-5 [facility] Veterinary Radiologist Office Visit Reporton 07-14-2025 Veterinary Radiologist Office Visit Report [facility] [address], [address] [place] [address] OFFICE VISIT Date of Service: 07/14/25 MR#: [id number] Acct: [id number] Name: MERRY CAMPOS Rep #: [id number] : 1995 Provider: OMI garcia Age/Sex: 30/F Location: [facility] Status: Signed Intake Vital Signs 05/22/25 09:21 06/20/25 09:22 07/14/25 12:54 Height 5 ft 4 in 5 ft 4 in 5 ft 4 in Weight: 150 lb 7 oz BMI 25.8 BP 111/71 Intake Visit Reasons: 29 wk ob glucose Chief Complaint: 29 Week OB Endodontics Dentist Required: No Is patient in pain?: No Allergies Environmental Allergies: Uncoded Allergy (Verified 07/14/25 12:54) Other Medications ???Medication ???Instructions ???Recorded ???Confirmed ???Type PNV 153-FA 400 mcg-om3 35 mg-dha tab PO 02/11/25 07/14/25 History 25 mg-epa 5 mg-fish oil chew tablet fluticasone propionate 50 1 spray intranasal Q12H PRN 07/14/25 History mcg/actuation nasal spray,suspension (Flonase Allergy Relief) loratadine 10 mg tablet (Claritin) 10 mg PO QDAY 02/11/25 07/14/25 History Last Menstrual Period: 12/23/24 Zika: Zika virus screening: Negative : Yes PFSH PFSH Medical History Seasonal allergies Surgical History Fred teeth extracted Family History Uncle Diabetes Maternal Grandfather Diabetes Maternal Dementia, Onset Age: 80 Paternal Social History adopted: No household members: spouse, family and children housing: house number of children: 2 current occupational status: unemployed current occupation: [employer] current occupational exposures/hazards: No pets and animals: Yes (Avoid litterbox) pets and animals: cat(s) and dog(s) history of recent travel: No sexually active: Yes Smoking Status: Never smoker alcohol intake: current alcohol intake frequency: a few times a month details: Not while substance use type: does not use well-balanced diet: daily or most days caffeine: Yes (Clean Energy in afternoon- 74mg caffeine. Education to stay under 200mg/day) Type: coffee Number of servings: 1 and other Number of servings: 1 eating out: 1-3 times/week during the past year weight has: remained stable what type of physical activity do you participate in: other details: farm chores frequency: daily duration: 45-60 minutes/day farhad/taoist: Yarsanism seatbelt use: always do you feel safe at home: Yes additional social history: - Bruce Martinez History 3 Elective abortions Hx Para 2 Spontaneous abortions Hx # Term Pregnancies Ectopic pregnancies Hx # Pregnancies Multiple births # of living children 2 Past Pregnancies Del. Date Name GA/Weeks Outcome Route Bth Weight Gen Labor Lgth Anesthesia Del Locatn Provider FOB 02/20/21 Hair 40 live - full term 8# 6oz Male epidural [place] Aul tman [place] 09/21/22 [place] 40 live - full term 8# 12oz Male epidural Maurilio Marcos sas [place] Delivery Date: 09/21/22 Last Updated by: Sylvie Lofton elective IOL @ 40wks, large clots after delivery, had injection to stop bleeding, anemic HPI 29 wk ob glucose Details: MERRY CAMPOS is a 30 year old who presents for routine OB visit. OB Visit DAISY Calculator Estimated Delivery Date Method Current WG Current Estimate 09/29/25 LMP (Certain) 29w 0d Other Estimates 09/26/25 Ultrasound #1 29w 3d Expected Delivery Route/Plan Labor Preferences- CB/BF classes: no labor support person: Rex labor intervention preferences: [] pain management options preferred: epidural cut cord/dad catch: yes : yes PP control planned: discussed discussed possible routes of delivery and associated risks: [] special requests: [] Specific Issue/Plans Covid status: [] Flu vaccine: [] Tdap vaccine: declines Rhogam: NA LARC form signed: yes Problem list reviewed and updated with the most current plan of care details and appropriate orders placed. Relevant counseling for the gestational age provided. Continue routine care and follow up unless otherwise noted in visit notes/problem list details Initial Weight: 130 lb Date -???-???-???-???-? ??-???-???-???-??? -???-???-???- EGA Weight BP Urine Prot -???-???-???-???-? ??-???-???-???-??? -???-???-???- Glucose FHR FuHt Pres Dilation -???-???-???-???-? ??-???-???-???-??? -???-???-???- Effaced St Visit Note 02/28/25 -???-???-???-???-? ??-???-???-???-??? -???-???-???- 9w 4d 130 lb 4 oz (+4 oz) 107/67 -???-???-???-???-? ??-???-??? (more content not included)... Normal [facility] Platelet countOrdered By: Daniel Santacruz on 07-14-2025 Platelets (Bld) [#/Vol] 170 10*3/uL 150-450 [facility] RBC Auto (Bld) [#/Vol]Ordere d By: Saba Santacruz on 07-14-2025 RBC (Bld) [#/Vol] 2.95 10*6/uL Low 4.2-5.4 [facility] Syphilis Antibodieson 2024 Syphilis Abs Non-Reactive Normal Nonreactive [facility] Comment on above: Performed By: #### L 3890.6006, BTS, L509.4006, L509.8002, L3890.6301, L100.0100, L3890.6102 #### [facility] [address] [place], [address] White blood cell (WBC) count Ordered By: Saba Santacruz on 07-14-2025 WBC (Bld) [#/Vol] 8.8 10*3/uL 4.4-11.0 [facility] Laboratory - Chemistry and C hemistry - challengeOrdered By: Saba Santacruz on 06-20-2025 Glucose Ql (U) Negative [facility] - UrinalysisOrder ed By: Saba Santacruz on 06-20-2025 Protein Ql (U) Negative [facility] Veterinary Radiologist Office Visit Reporton 06-20-2025 Veterinary Radiologist Office Visit Report [facility] [address], [address] [place] [address] OFFICE VISIT Date of Service: 06/20/25 MR#: [id number] Acct: [id number] Name: MERRY CAMPOS Rep #: [id number] 2 : 1995 Provider: Dr. Saba urrutia MD Age/Sex: 30/F Location: [facility] Status: Signed Intake Vital Signs 04/25/25 08:48 05/22/25 09:21 06/20/25 09:22 Height 5 ft 4 in 5 ft 4 in 5 ft 4 in Weight: 142 lb 1 oz BMI 24.3 BP 101/66 Intake Visit Reasons: 25wk ob Endodontics Dentist Required: No Is patient in pain?: No Feel stressed/tense/ner vous/anxious/diffi culty sleeping: not at all Allergies Environmental Allergies: Uncoded Allergy (Verified 06/20/25 09:27) Other Medications ???Medication ???Instructions ???Recorded ???Confirmed ???Type PNV 153-FA 400 mcg-om3 35 mg-dha tab PO 02/11/25 06/20/25 History 25 mg-epa 5 mg-fish oil chew tablet fluticasone propionate 50 1 spray intranasal Q12H PRN 06/20/25 History mcg/actuation nasal spray,suspension (Flonase Allergy Relief) loratadine 10 mg tablet (Claritin) 10 mg PO QDAY 02/11/25 06/20/25 History Last Menstrual Period: 12/23/24 Zika: Zika virus screening: Negative : No PFSH PFSH Medical History Seasonal allergies Surgical History Fred teeth extracted Family History Uncle Diabetes Maternal Grandfather Diabetes Maternal Dementia, Onset Age: 80 Paternal Social History adopted: No household members: spouse, family and children housing: house number of children: 2 current occupational status: unemployed current occupation: [employer] current occupational exposures/hazards: No pets and animals: Yes (Avoid litterbox) pets and animals: cat(s) and dog(s) history of recent travel: No sexually active: Yes Smoking Status: Never smoker alcohol intake: current alcohol intake frequency: a few times a month details: Not while substance use type: does not use well-balanced diet: daily or most days caffeine: Yes ([employer] in afternoon- 74mg caffeine. Education to stay under 200mg/day) Type: coffee Number of servings: 1 and other Number of servings: 1 eating out: 1-3 times/week during the past year weight has: remained stable what type of physical activity do you participate in: other details: farm chores frequency: daily duration: 45-60 minutes/day farhad/taoist: Yarsanism seatbelt use: always do you feel safe at home: Yes additional social history: - Bryan- Sales History 3 Elective abortions Hx Para 2 Spontaneous abortions Hx # Term Pregnancies Ectopic pregnancies Hx # Pregnancies Multiple births # of living children 2 Past Pregnancies Del. Date Name GA/Weeks Outcome Route Bth Weight Infant Gen Labor Lgth Anesthesia Del Locatn Provider FOB 02/20/21 Hair 40 live - full term 8# 6oz Male epidural [place] Aul tman [place] 09/21/22 Yaredptin 40 live - full term 8# 12oz Male epidural Maurilio Marcos sas [place] Delivery Date: 09/21/22 Last Updated by: Sylvie Lofton elective IOL @ 40wks, large clots after delivery, had injection to stop bleeding, anemic HPI 25wk ob Details: MERRY CAMPOS is a 30 year old who presents for routine OB visit. OB Visit DAISY Calculator Estimated Delivery Date Method Current WG Current Estimate 09/29/25 LMP (Certain) 25w 4d Other Estimates 09/26/25 Ultrasound #1 26w 0d Expected Delivery Route/Plan Labor Preferences- CB/BF classes: [] labor support person: [] labor intervention preferences: [] pain management options preferred: [] cut cord/dad catch: [] : [] PP control planned: [] discussed possible routes of delivery and associated risks: [] special requests: [] Specific Issue/Plans Covid status: [] Flu vaccine: [] Tdap vaccine: [] Rhogam: [] LARC form signed: [] Problem list reviewed and updated with the most current plan of care details and appropriate orders placed. Relevant counseling for the gestational age provided. Continue routine care and follow up unless otherwise noted in visit notes/problem list details Initial Weight: 130 lb Date -???-???-???-???-? ??-???-???-???-??? -???-???-???- EGA Weight BP Urine Prot -???-???-???-???-? ??-???-???-???-??? -???-???-???- Glucose FHR FuHt Pres Dilation -???-???-???-???-? ??-???-???-???-??? -???-???-???- Effaced St Visit Note 02/28/25 -???-???-???-???-? ??-???-???-???-??? -???-???-???- 9w 4d 130 lb 4 oz (+4 oz) 107/67 -???-???-???-???-? ??-???-???-???-??? (more content not included)... Normal [facility] - Chemistry and C hemistry - challengeOrdered By: Annette Adames on 05-22-2025 Glucose Ql (U) Negative [facility] - UrinalysisOrder ed By: Annette Adames on 05-22-2025 Protein Ql (U) Negative [facility] Veterinary Radiologist Office Visit Reporton 05-22-2025 Veterinary Radiologist Office Visit Report [facility] [address], [address] [place] [address] OFFICE VISIT Date of Service: 05/22/25 MR#: [id number] Acct: [id number] Name: MERRY CAMPOS Rep #: [id number] 9 : 1995 Provider: JEY Naranjo ams Age/Sex: 29/F Location: [facility] Status: Signed Intake Vital Signs 04/25/25 08:48 05/22/25 09:21 Height 5 ft 4 in 5 ft 4 in Weight: 142 lb 2 oz BMI 24.3 BP 103/58 L Intake Visit Reasons: 21wk ob Chief Complaint: 21wk OB Endodontics Dentist Required: No Is patient in pain?: No Allergies Environmental Allergies: Uncoded Allergy (Verified 05/22/25 09:21) Other Medications ???Medication ???Instructions ???Recorded ???Confirmed ???Type PNV 153-FA 400 mcg-om3 35 mg-dha tab PO 02/11/25 05/22/25 History 25 mg-epa 5 mg-fish oil chew tablet fluticasone propionate 50 1 spray intranasal Q12H PRN 05/22/25 History mcg/actuation nasal spray,suspension (Flonase Allergy Relief) loratadine 10 mg tablet (Claritin) 10 mg PO QDAY 02/11/25 05/22/25 History Last Menstrual Period: 12/23/24 : No PFSH PFSH Medical History Seasonal allergies Surgical History Fred teeth extracted Family History Uncle Diabetes Maternal Grandfather Diabetes Maternal Dementia, Onset Age: 80 Paternal Social History adopted: No household members: spouse, family and children housing: house number of children: 2 current occupational status: unemployed current occupation: [employer] current occupational exposures/hazards: No pets and animals: Yes (Avoid litterbox) pets and animals: cat(s) and dog(s) history of recent travel: No sexually active: Yes Smoking Status: Never smoker alcohol intake: current alcohol intake frequency: a few times a month details: Not while substance use type: does not use well-balanced diet: daily or most days caffeine: Yes (Clean Energy in afternoon- 74mg caffeine. Education to stay under 200mg/day) Type: coffee Number of servings: 1 and other Number of servings: 1 eating out: 1-3 times/week during the past year weight has: remained stable what type of physical activity do you participate in: other details: farm chores frequency: daily duration: 45-60 minutes/day farhad/taoist: Yarsanism seatbelt use: always do you feel safe at home: Yes additional social history: - Bryan- Juan History 3 Elective abortions Hx Para 2 Spontaneous abortions Hx # Term Pregnancies Ectopic pregnancies Hx # Pregnancies Multiple births # of living children 2 Past Pregnancies Del. Date Name GA/Weeks Outcome Route Bth Weight Infant Gen Labor Lgth Anesthesia Del Locatn Provider FOB 02/20/21 Hair 40 live - full term 8# 6oz Male epidural [place] Aul tman [place] 09/21/22 Kiptin 40 live - full term 8# 12oz Male epidural Maurilio Marcos sas [place] Delivery Date: 09/21/22 Last Updated by: Sylvie Lofton elective IOL @ 40wks, large clots after delivery, had injection to stop bleeding, anemic HPI 21wk ob Details: MERRY CAMPOS is a 29 year old who presents for routine OB visit. OB Visit DAISY Calculator Estimated Delivery Date Method Current WG Current Estimate 09/29/25 LMP (Certain) 21w 3d Other Estimates 09/26/25 Ultrasound #1 21w 6d Expected Delivery Route/Plan Labor Preferences- CB/BF classes: [] labor support person: [] labor intervention preferences: [] pain management options preferred: [] cut cord/dad catch: [] : [] PP control planned: [] discussed possible routes of delivery and associated risks: [] special requests: [] Specific Issue/Plans Covid status: [] Flu vaccine: [] Tdap vaccine: [] Rhogam: [] LARC form signed: [] Problem list reviewed and updated with the most current plan of care details and appropriate orders placed. Relevant counseling for the gestational age provided. Continue routine care and follow up unless otherwise noted in visit notes/problem list details Initial Weight: 130 lb Date -???-???-???-???-? ??-???-???-???-??? -???-???-???- EGA Weight BP Urine Prot -???-???-???-???-? ??-???-???-???-??? -???-???-???- Glucose FHR FuHt Pres Dilation -???-???-???-???-? ??-???-???-???-??? -???-???-???- Effaced St Visit Note 02/28/25 -???-???-???-???-? ??-???-???-???-??? -???-???-???- 9w 4d 130 lb 4 oz (+4 oz) 107/67 -???-???-???-???-? ??-???-???-???-??? -???-???-???- 173 -???-???-???-???-? ??-???-???-???-??? -???-???-???- KW- CRL cons with dates. declines NIPT 03/28/25 -?? (more content not included)... Normal [facility] - Chemistry and C hemistry - challengeOrdered By: Leeann Astudillo on 04-25-2025 Glucose Ql (U) Negative [facility] - UrinalysisOrder ed By: Leeann Astudillo on 04-25-2025 Protein Ql (U) Negative [facility] Veterinary Radiologist Office Visit Reporton 04-25-2025 Veterinary Radiologist Office Visit Report [facility] [address], [address] [place] [address] OFFICE VISIT Date of Service: 04/25/25 MR#: [id number] Acct: [id number] Name: MERRY CAMPOS Rep #: [id number] 2 : 1995 Provider: Dr. Leeann Chen DO Age/Sex: 29/F Location: [facility] Status: Signed Intake Vital Signs 02/28/25 14:53 03/28/25 14:22 04/25/25 08:48 04/25/25 08:48 Height 5 ft 4 in 5 ft 4 in 5 ft 4 in 5 ft 4 in Weight: 138 lb 8 oz BMI 23.8 BP 109/70 Intake Visit Reasons: 17 wk ob Endodontics Dentist Required: No Is patient in pain?: No Allergies Environmental Allergies: Uncoded Allergy (Verified 04/25/25 08:47) Other Medications ???Medication ???Instructions ???Recorded ???Confirmed ???Type PNV 153-FA 400 mcg-om3 35 mg-dha tab PO 02/11/25 04/25/25 History 25 mg-epa 5 mg-fish oil chew tablet fluticasone propionate 50 1 spray intranasal Q12H PRN 04/25/25 History mcg/actuation nasal spray,suspension (Flonase Allergy Relief) loratadine 10 mg tablet (Claritin) 10 mg PO QDAY 02/11/25 04/25/25 History Last Menstrual Period: 12/23/24 Zika: Zika virus screening: Negative : No PFSH PFSH Medical History Seasonal allergies Surgical History Fred teeth extracted Family History Uncle Diabetes Maternal Grandfather Diabetes Maternal Dementia, Onset Age: 80 Paternal Social History adopted: No household members: spouse, family and children housing: house number of children: 2 current occupational status: unemployed current occupation: [employer] current occupational exposures/hazards: No pets and animals: Yes (Avoid litterbox) pets and animals: cat(s) and dog(s) history of recent travel: No sexually active: Yes Smoking Status: Never smoker alcohol intake: current alcohol intake frequency: a few times a month details: Not while substance use type: does not use well-balanced diet: daily or most days caffeine: Yes (Clean Energy in afternoon- 74mg caffeine. Education to stay under 200mg/day) Type: coffee Number of servings: 1 and other Number of servings: 1 eating out: 1-3 times/week during the past year weight has: remained stable what type of physical activity do you participate in: other details: farm chores frequency: daily duration: 45-60 minutes/day farhad/taoist: Yarsanism seatbelt use: always do you feel safe at home: Yes additional social history: - Bryan- Juan History 3 Elective abortions Hx Para 2 Spontaneous abortions Hx # Term Pregnancies Ectopic pregnancies Hx # Pregnancies Multiple births # of living children 2 Past Pregnancies Del. Date Name GA/Weeks Outcome Route Bth Weight Gen Labor Lgth Anesthesia Del Locatn Provider FOB 02/20/21 Hair 40 live - full term 8# 6oz Male epidural [place] Aul tman Bryan 09/21/22 [place] 40 live - full term 8# 12oz Male epidural Maurilio Marcos sas [place] Delivery Date: 09/21/22 Last Updated by: Sylvie Lofton elective IOL @ 40wks, large clots after delivery, had injection to stop bleeding, anemic HPI 17 wk ob Details: MERRY CAMPOS is a 29 year old who presents for routine OB visit. OB Visit DAISY Calculator Estimated Delivery Date Method Current WG Current Estimate 09/29/25 LMP (Certain) 17w 4d Other Estimates 09/26/25 Ultrasound #1 18w 0d Expected Delivery Route/Plan Labor Preferences- CB/BF classes: [] labor support person: [] labor intervention preferences: [] pain management options preferred: [] cut cord/dad catch: [] : [] PP control planned: [] discussed possible routes of delivery and associated risks: [] special requests: [] Specific Issue/Plans Covid status: [] Flu vaccine: [] Tdap vaccine: [] Rhogam: [] LARC form signed: [] Problem list reviewed and updated with the most current plan of care details and appropriate orders placed. Relevant counseling for the gestational age provided. Continue routine care and follow up unless otherwise noted in visit notes/problem list details Initial Weight: 130 lb Date -???-???-???-???-? ??-???-???-???-??? -???-???-???- EGA Weight BP Urine Prot -???-???-???-???-? ??-???-???-???-??? -???-???-???- Glucose FHR FuHt Pres Dilation -???-???-???-???-? ??-???-???-???-??? -???-???-???- Effaced St Visit Note 02/28/25 -???-???-???-???-? ??-???-???-???-??? -???-???-???- 9w 4d 130 lb 4 oz (+4 oz) 107/67 -???-???-???-???-? ??-???-???-???-??? -???-???-???- 173 -???-???-???-?? (more content not included)... Normal [facility] - Chemistry and C hemistry - challengeOrdered By: Saba Santacruz on 03-28-2025 Glucose Ql (U) Negative [facility] - UrinalysisOrder ed By: Saba Santacruz on 03-28-2025 Protein Ql (U) Negative [facility] Veterinary Radiologist Office Visit Reporton 03-28-2025 Veterinary Radiologist Office Visit Report [facility], [address] [place] [address] OFFICE VISIT Date of Service: 03/28/25 MR#: [id number] Acct: [id number] Name: MERRY CAMPOS Rep #: [id number] : 1995 Provider: Dr. Leeann Chen, Age/Sex: 29/F Location: [facility] Status: Signed Intake Vital Signs 02/11/25 09:00 02/28/25 14:53 03/28/25 14:22 Height 5 ft 4 in 5 ft 4 in 5 ft 4 in Weight: 131 lb 130 lb 4 oz 134 lb 6 oz BMI 22.4 22.3 23.1 BP 90/60 107/67 115/80 Blood Pressure Location Lt brachial Position Sitting Intake Visit Reasons: 13wk OB Endodontics Dentist Required: No Is patient in pain?: No Allergies Environmental Allergies: Uncoded Allergy (Verified 03/28/25 14:24) Other Medications ???Medication ???Instructions ???Recorded ???Confirmed ???Type PNV 153-FA 400 mcg-om3 35 mg-dha tab PO 02/11/25 03/28/25 History 25 mg-epa 5 mg-fish oil chew tablet fluticasone propionate 50 1 spray intranasal Q12H PRN 03/28/25 History mcg/actuation nasal spray,suspension (Flonase Allergy Relief) loratadine 10 mg tablet (Claritin) 10 mg PO QDAY 02/11/25 03/28/25 History Last Menstrual Period: 12/23/24 Zika: Zika virus screening: Negative : No PFSH PFSH Medical History Seasonal allergies Surgical History Fred teeth extracted Family History Uncle Diabetes Maternal Grandfather Diabetes Maternal Dementia, Onset Age: 80 Paternal Social History adopted: No household members: spouse, family and children housing: house number of children: 2 current occupational status: unemployed current occupation: [employer] current occupational exposures/hazards: No pets and animals: Yes (Avoid litterbox) pets and animals: cat(s) and dog(s) history of recent travel: No sexually active: Yes Smoking Status: Never smoker alcohol intake: current alcohol intake frequency: a few times a month details: Not while substance use type: does not use well-balanced diet: daily or most days caffeine: Yes (Clean Energy in afternoon- 74mg caffeine. Education to stay under 200mg/day) Type: coffee Number of servings: 1 and other Number of servings: 1 eating out: 1-3 times/week during the past year weight has: remained stable what type of physical activity do you participate in: other details: farm chores frequency: daily duration: 45-60 minutes/day farhad/taoist: Yarsanism seatbelt use: always do you feel safe at home: Yes additional social history: - Bryan- Sales History 3 Elective abortions Hx Para 2 Spontaneous abortions Hx # Term Pregnancies Ectopic pregnancies Hx # Pregnancies Multiple births # of living children 2 Past Pregnancies Del. Date Name GA/Weeks Outcome Route Bth Weight Infant Gen Labor Lgth Anesthesia Del Locatn Provider FOB 02/20/21 Hair 40 live - full term 8# 6oz Male epidural [place] Aul tman Bryan 09/21/22 [place] 40 live - full term 8# 12oz Male epidural Maurilio Marcos sas [place] Delivery Date: 09/21/22 Last Updated by: Sylvie Lofton elective IOL @ 40wks, large clots after delivery, had injection to stop bleeding, anemic HPI 13wk OB Details: MERRY CAMPOS is a 29 year old who presents for routine OB visit. OB Visit DAISY Calculator Estimated Delivery Date Method Current WG Current Estimate 09/29/25 LMP (Certain) 13w 5d Other Estimates 09/26/25 Ultrasound #1 14w 1d Expected Delivery Route/Plan Labor Preferences- CB/BF classes: [] labor support person: [] labor intervention preferences: [] pain management options preferred: [] cut cord/dad catch: [] : [] PP control planned: [] discussed possible routes of delivery and associated risks: [] special requests: [] Specific Issue/Plans Covid status: [] Flu vaccine: [] Tdap vaccine: [] Rhogam: [] LARC form signed: [] Problem list reviewed and updated with the most current plan of care details and appropriate orders placed. Relevant counseling for the gestational age provided. Continue routine care and follow up unless otherwise noted in visit notes/problem list details Initial Weight: 130 lb Date -???-???-???-???-? ??-???-???-???-??? -???-???-???- EGA Weight BP Urine Prot -???-???-???-???-? ??-???-???-???-??? -???-???-???- Glucose FHR FuHt Pres Dilation -???-???-???-???-? ??-???-???-???-??? -???-???-???- Effaced St Visit Note 02/28/25 -???-???-???-???-? ??-???-???-???-??? -???-???-???- 9w 4d 130 lb 4 oz (+4 oz) 107/67 -???-?? (more content not included)... Normal [facility] PAP I-G w/rfx hrHPV-Aptimaon 03-04-2025 ADEQ Comment Normal . [facility] Comment on above: Order Comment: Speci men Comment: [id number] Specimen Comment: Source.............Cervix;Endocervix Specimen Comment: Other.............. Specimen Comment: No. of containers..01 ThinPrep Vial Result Comment: Sati sfactory for evaluation. No endocervical component is identified. Performed By: #### L 7400.0353 #### [facility], [address] COMM . Normal . [facility] Comment on above: Order Comment: Speci men Comment: [id number] Specimen Comment: Source.............Cervix;Endocervix Specimen Comment: Other.............. Specimen Comment: No. of containers..01 ThinPrep Vial Performed By: #### L 7400.0353 #### [facility] [address] [place], [place], [id number] COMMENT Comment Normal . [facility] Comment on above: Order Comment: Speci men Comment: [id number] Specimen Comment: Source.............Cervix;Endocervix Specimen Comment: Other.............. Specimen Comment: No. of containers..01 ThinPrep Vial Result Comment: This liquid based ThinPrep(R) pap test was screened with the use of an image guided system. Performed By: #### L 7400.0353 #### [facility] [address] [facility]. [place], [place], [id number] DIAG Comment Normal . [facility] Comment on above: Order Comment: Speci men Comment: [id number] Specimen Comment: Source.............Cervix;Endocervix Specimen Comment: Other.............. Specimen Comment: No. of containers..01 ThinPrep Vial Result Comment: NEGA TIVE FOR INTRAEPITHELIAL LESION OR MALIGNANCY. Performed By: #### L 7400.0353 #### [facility] [address] [place], [place], [id number] HPV RFLX Comment Normal . [facility] Comment on above: Order Comment: Speci men Comment: [id number] Specimen Comment: Source.............Cervix;Endocervix Specimen Comment: Other.............. Specimen Comment: No. of containers..01 ThinPrep Vial Result Comment: The HPV DNA reflex criteria were not met with this specimen result therefore, no HPV testing was performed. Performed at: [address] [id number] Balance Wheel Arm Burnisher: Angeline Genao MD, Phone: [phone] Performed By: #### L 7400.0353 #### [facility] [address] [place], [place], [address] PAPSMR Comment Normal . [facility] Comment on above: Order Comment: Speci men Comment: [id number] Specimen Comment: Source.............Cervix;Endocervix Specimen Comment: Other.............. Specimen Comment: No. of containers..01 ThinPrep Vial Result Comment: The Pap smear is a screening test designed to aid in the detection of premalignant and malignant conditions of the uterine cervix. It is not a diagnostic procedure and should not be used as the sole means of detecting cervical cancer. Both false-positive and false-negative reports do occur. Performed By: #### L 7400.0353 #### [facility] [address] [place], [place], [id number] PERFORM Comment Normal . [facility] Comment on above: Order Comment: Speci men Comment: [id number] Specimen Comment: Source.............Cervix;Endocervix Specimen Comment: Other.............. Specimen Comment: No. of containers..01 ThinPrep Vial Result Comment: Saima Olson Lapping Machine Set Up Operator (ASCP) Performed By: #### Zac 7400.0353 #### [facility] [address] [place], [place], [id number] Chlamydia/GC DAMION aptimaon CHLAMY,NUC ACID Negative Normal Negative [facility] Comment on above: Performed By: #### L 3890.6006, BTS, L509.4006, L509.8002, L3890.6301, L100.0100, L3890.6102 #### [facility] [address] [place], [address] GC BY NUC ACID Negative Normal Negative [facility] Comment on above: Result Comment: Perf ormed at: =G - [facility] [address], [id number] Balance Wheel Arm Burnisher: Angeline Genao MD, Phone: [phone] Performed By: #### L 3890.6006, BTS, L509.4006, L509.8002, L3890.6301, L100.0100, L3890.6102 #### [facility] [address] [facility] [place], [address] Urine Cultureon 03-02-2025 [facility] Mixed Gram Positive Organisms Cowan Count 11,000-25,000 MIXC Mixed contaminants. Submit a new specimen if indicated. Normal [facility] Comment on above: Performed By: #### L 3890.6006, BTS, L509.4006, L509.8002, L3890.6301, L100.0100, L3890.6102 #### [facility] [address] [facility]. [place], [place], [id number] Absolute lymphocyte countOrd ered By: Tona Guzman on 02-28-2025 Lymphocytes Auto (Unsp spec) [#/Vol] 1.70 10*3/uL 0.83-4.51 [facility] Absolute neutrophil countOrd ered By: Tona Guzman on 02-28-2025 Neutrophils (Bld) [#/Vol] 4.8 10*3/uL 2.0-7.7 [facility] Automated lymphocyte count a s percentage of total leukocytesOrdered By: Tona Guzman on 02-28-2025 Lymphocytes/100 WBC Auto (Unsp spec) 24.0 % 19-41 [facility] Basophil percentageOrdered B y: Tona Guzman on 02-28-2025 Basophils/100 WBC (Bld) 0.1 % 0-1 [facility] CBC W/Diff, Automatedon Absolute Lymph 1.70 X10 3/uL Normal 0.83-4.51 [facility] Comment on above: Performed By: #### L 3890.6006, BTS, L509.4006, L509.8002, L3890.6301, L100.0100, L3890.6102 #### [facility] [address] [place], [address] Absolute Neut 4.8 X10 3/uL Normal 2.0-7.7 [facility] Comment on above: Performed By: #### L 3890.6006, BTS, L509.4006, L509.8002, L3890.6301, L100.0100, L3890.6102 #### [facility] [address] [place], [address] Basophils/100 WBC (Bld) 0.1 % Normal 0-1 [facility] Comment on above: Performed By: #### L 3890.6006, BTS, L509.4006, L509.8002, L3890.6301, L100.0100, L3890.6102 #### [facility] [address] [place], [address] Eosinophils/100 WBC (Bld) 1.3 % Normal 0-5 [facility] Comment on above: Performed By: #### L 3890.6006, BTS, L509.4006, L509.8002, L3890.6301, L100.0100, L3890.6102 #### [facility] [address] [place], [address] Erythrocyte distribution width (RBC) [Ratio] 11.3 % Low 11.6-14.6 [facility] Comment on above: Performed By: #### L 3890.6006, BTS, L509.4006, L509.8002, L3890.6301, L100.0100, L3890.6102 #### [facility] [address] [place], [address] Hematocrit (Bld) [Volume fraction] 37.3 % Normal 37-47 [facility] Comment on above: Performed By: #### L 3890.6006, BTS, L509.4006, L509.8002, L3890.6301, L100.0100, L3890.6102 #### [facility] [address] [place], [address] Hemoglobin (Bld) [Mass/Vol] 12.7 g/dL Normal 12.0-15.0 [facility] Comment on above: Performed By: #### L 3890.6006, BTS, L509.4006, L509.8002, L3890.6301, L100.0100, L3890.6102 #### [facility] [address] [place], [address] IG% 0.400 Normal 0.0-0.9 [facility] Comment on above: Result Comment: IG% - Immature Granulocytes (promyelocytes, myelocytes and metamyelocytes) > 1% indicates that a LEFT SHIFT is Present. Performed By: #### L 3890.6006, BTS, L509.4006, L509.8002, L3890.6301, L100.0100, L3890.6102 #### [facility] [address] [place], [address] Lymphocytes/100 WBC (Bld) 24.0 % Normal 19-41 [facility] Comment on above: Performed By: #### L 3890.6006, BTS, L509.4006, L509.8002, L3890.6301, L100.0100, L3890.6102 #### [facility] [address] [place], [address] MCH (RBC) [Entitic mass] 31.1 pg Normal 27.0-32.0 [facility] [facility] Comment on above: Performed By: #### L 3890.6006, BTS, L509.4006, L509.8002, L3890.6301, L100.0100, L3890.6102 #### [facility] [address] [place], [address] MCHC (RBC) [Mass/Vol] 34.0 g/dL Normal 32-36 [facility] Comment on above: Performed By: #### L 3890.6006, BTS, L509.4006, L509.8002, L3890.6301, L100.0100, L3890.6102 #### [facility] [address] [place], [address] MCV (RBC) [Entitic vol] 91.2 fL Normal 81-99 [facility] Comment on above: Performed By: #### L 3890.6006, BTS, L509.4006, L509.8002, L3890.6301, L100.0100, L3890.6102 #### [facility] [address] [place], [address] Monocytes/100 WBC (Bld) 6.5 % Normal 0-10 [facility] Comment on above: Performed By: #### L 3890.6006, BTS, L509.4006, L509.8002, L3890.6301, L100.0100, L3890.6102 #### [facility] [address] [place], [address] Neutrophils/100 WBC (Bld) 67.7 % Normal 47-70 [facility] Comment on above: Performed By: #### L 3890.6006, BTS, L509.4006, L509.8002, L3890.6301, L100.0100, L3890.6102 #### [facility] [address] [place], [address] Nucleated RBC (Bld) [#/Vol] 0 10*3/uL Normal 0-5 [facility] Comment on above: Performed By: #### L 3890.6006, BTS, L509.4006, L509.8002, L3890.6301, L100.0100, L3890.6102 #### [facility] [address] [place], [address] Platelet mean volume (Bld) [Entitic vol] 9.3 fL Normal 6.2-12.0 [facility] Comment on above: Performed By: #### L 3890.6006, BTS, L509.4006, L509.8002, L3890.6301, L100.0100, L3890.6102 #### [facility] [address] [place], [address] Platelets (Bld) [#/Vol] 240 10*3/uL Normal 150-450 [facility] Comment on above: Performed By: #### L 3890.6006, BTS, L509.4006, L509.8002, L3890.6301, L100.0100, L3890.6102 #### [facility] [address] [place], [address] RBC (Bld) [#/Vol] 4.09 10*6/uL Low 4.2-5.4 [facility] Comment on above: Performed By: #### L 3890.6006, BTS, L509.4006, L509.8002, L3890.6301, L100.0100, L3890.6102 #### [facility] [address] [place], [address] RDW SD 38.2 fl Normal 35.1-43.9 [facility] Comment on above: Performed By: #### L 3890.6006, BTS, L509.4006, L509.8002, L3890.6301, L100.0100, L3890.6102 #### [facility] [address] [place], [address] WBC (Bld) [#/Vol] 7.1 10*3/uL Normal 4.4-11.0 [facility] Comment on above: Performed By: #### L 3890.6006, BTS, L509.4006, L509.8002, L3890.6301, L100.0100, L3890.6102 #### [facility] [address] [place], [address] Cervical or vagninal specime n microscopic examination by cytology stain (reported asOrdered By: Annette Adames on 02-28-2025 Cytology report Cyto stain Doc (Cvx/Vag) Comment . [facility] Comment on above: The Pap smear is a s creening test designed to aid in thedetection of premalignant and malignant conditions of theuterine cervix. It is not a diagnostic procedure andshould not be used as the sole means of detecting cervicalcancer. Both false-positive and false-negative reports dooccur. Chlamydia trachomatis rRNA d etection by probe and target amplification methodOrdered By: Tona Guzman on 02-28-2025 C. trachomatis rRNA DAMION+probe Ql (Unsp spec) Negative Negative [facility] Eosinophil percentageOrdered By: [facility] on 02-28-2025 Eosinophils/100 WBC (Bld) 1.3 % 0-5 [facility] Erythrocyte distribution wid th ratioOrdered By: Tona Megan on 02-28-2025 Erythrocyte distribution width (RBC) [Ratio] 11.3 % Low 11.6-14.6 [facility] Erythrocyte distribution wid th standard deviationOrdered By: [facility] on 02-28-2025 Erythrocyte distribution width (RBC) [Ratio] 38.2 fl 35.1-43.9 [facility] HIVon 02-28-2025 HIV Non-Reactive Normal Nonreactive [facility] Comment on above: Result Comment: Non- Reactive Reactive Repeatedly reactive samples must be confirmed according to CDC recommended confirmatory algorithms. The subresults for either HIVAG or AHIV can be used as an aid in the selection of the confirmation algorithm for reactive samples. Send out specimens with Reactive results to [facility] for confirmation. Order the HIV antibody detection and differentiation: lc#[id number] Performed By: #### L 3890.6006, BTS, L509.4006, L509.8002, L3890.6301, L100.0100, L3890.6102 #### [facility] [address] [place], [address] Hematocrit Auto (Bld) [Volum e fraction]Ordered By: Tona Guzman on 02-28-2025 Hematocrit (Bld) [Volume fraction] 37.3 % 37-47 [facility] Hemoglobin measurementOrdere d By: Tona [place] on 02-28-2025 Hemoglobin (Bld) [Mass/Vol] 12.7 g/dL 12.0-15.0 [facility] Hepatitis C Antibodyon 02-28 Hepatitis C Ab Non-Reactive Normal Nonreactive [facility] Comment on above: Result Comment: Reac tive: Presumptive evidence of antibodies to HCV. Follow CDC recommendations for supplemental testing. Non-Reactive: Antibodies to HCV were not detected; does not exclude the possibility of exposure to HCV Reactive Results are presumptive evidence of antibodies to HCV. Follow CDC recommendations for supplemental testing. Order confirmation testing: HCV Quant by PCR testing - HCVPCR #[id number] Non Reactive: < 0.8 Equivocal: >/= 0.8 to < 1.0 Reactive: >/= 1.0 The CDC requires that a reactive/equivocal HCV antibody result be sent out for confirmation. HCV Quant by PCR testing. Performed By: #### L 3890.6006, BTS, L509.4006, L509.8002, L3890.6301, L100.0100, L3890.6102 #### [facility] [address] [place], [place], [address] Immature granulocytes/100 WB C Auto (Bld)Ordered By: Tona Guzman on 02-28-2025 Immature granulocytes/100 WBC (Bld) 0.400 % 0.0-0.9 [facility] Comment on above: IG% - Immature Granu locytes (promyelocytes, myelocytes and metamyelocytes) > 1% indicates that a LEFT SHIFT is Present. L3890.6102on 02-28-2025 HEP B Surf Ag Non-Reactive Normal Nonreactive [facility] Comment on above: Result Comment: Reac tive: Presumptive evidence of HBV. Repeatedly reactive samples must be confirmed using a neutralization test ([employer] HBsAg Confirmatory Test) Non-Reactive: HBsAg not detected; does not exclude the possibility of exposure to HBV Performed By: #### L 3890.6006, BTS, L509.4006, L509.8002, L3890.6301, L100.0100, L3890.6102 #### [facility] [address] [place], [address] L509.4006on 02-28-2025 Rubella IgG REAC Normal Nonreactive [facility] Comment on above: Result Comment: Anti body Result: Interpretation Non-Reactive: Non-Immune Reactive: Immune The following results were obtained with the [employer] Rubella IgG assay. Results from assays of other manufacturers cannot be used interchangeably. Performed By: #### L 3890.6006, BTS, L509.4006, L509.8002, L3890.6301, L100.0100, L3890.6102 #### [facility] [address] [place], [address] Laboratory - CytologyOrdered By: Annette Adames on 02-28-2025 Lapping Machine Set Up Operator Cyto stain Nom (Cvx/Vag) [ID] Comment . [facility] Comment on above: Saima Olson, Cytolo gist (ASCP) Laboratory - Microbiology an d Antimicrobial susceptibilityOrdered By: Tona Guzman on 02-28-2025 HBV surface Ag Ql (S) Non-Reactive Nonreactive [facility] Comment on above: Reactive: Presumptiv e evidence of HBV. Repeatedly reactive samples must be confirmed using a neutralization test ([employer] HBsAg Confirmatory Test)Non-Reactive: HBsAg not detected; does not exclude the possibility of exposure to HBV Laboratory - Miscellaneous t estsOrdered By: Annette Adames on 02-28-2025 Service comment (Unsp spec) [Interp] . . [facility] MCV (mean corpuscular volume ) determinationOrdered By: Tona Guzman on 02-28-2025 MCV (RBC) [Entitic vol] 91.2 fL 81-99 [facility] Mean corpuscular hemoglobin (MCH) determinationOrdered By: Tona Guzman on 02-28-2025 MCH (RBC) [Entitic mass] 31.1 pg 27.0-32.0 [facility] Mean corpuscular hemoglobin concentration (MCHC) determinationOrdered By: Tona Guzman on 02-28-2025 MCHC (RBC) [Mass/Vol] 34.0 g/dL 32-36 [facility] Mean platelet volume determi nationOrdered By: Tona Guzman on 02-28-2025 Platelet mean volume (Bld) [Entitic vol] 9.3 fL 6.2-12.0 [facility] Monocyte percentageOrdered B y: Tona Guzman on 02-28-2025 Monocytes/100 WBC (Bld) 6.5 % 0-10 [facility] Neisseria gonorrhoeae nuclei c acid detection by amplified probe techniqueOrdered By: Tonanatalia Guzman on 02-28-2025 N. gonorrhoeae DNA DAMION+probe Ql (Unsp spec) Negative Negative [facility] Comment on above: Performed at: =[address] [id number] Director: Angeline Genao MD, Phone: [phone] Neutrophil percentageOrdered By: Tona Guzman on 02-28-2025 Neutrophils/100 WBC (Bld) 67.7 % 47-70 [facility] No Panel InformationOrdered By: Annette Adames on 02-28-2025 Pap Smear Specimen Adequacy Comment . [facility] Comment on above: Satisfactory for regina luation. No endocervical component is identified. No Panel InformationOrdered By: Tona Guzman on 02-28-2025 HIV (1&2) Antibody Non-Reactive Nonreactive [facility] Comment on above: Non-ReactiveReactive Repeatedly reactive samples must be confirmed according to CDC recommended confirmatory algorithms. The subresults for either HIVAG or AHIV can be used as an aid in the selection of the confirmation algorithm for reactive samples.Send out specimens with Reactive results to [facility] for confirmation.Order the HIV antibody detection and differentiation: #[id number] Nucleated red blood cell per centageOrdered By: Tona Guzman on 02-28-2025 Nucleated RBC/100 WBC (Bld) [Ratio] 0 % 0-5 [facility] Veterinary Radiologist Office Visit Reporton 02-28-2025 Veterinary Radiologist Office Visit Report [facility] [address], [address] [place] [address] OFFICE VISIT Date of Service: 02/28/25 MR#: [id number] Acct: [id number] Name: MERRY CROWE Rep #: [id number] : 1995 Provider: JEY Naranjo ams Age/Sex: 29/F Location: [facility] Status: Signed Intake Vital Signs 02/11/25 09:00 02/28/25 14:53 Height 5 ft 4 in 5 ft 4 in Weight: 130 lb 4 oz BMI 22.3 BP 107/67 Intake Visit Reasons: NEW OB LMP 12/23 DAISY 09/29 Chief Complaint: New OB Endodontics Dentist Required: No Is patient in pain?: No Allergies Environmental Allergies: Uncoded Allergy (Verified 02/28/25 14:51) Other Medications ???Medication ???Instructions ???Recorded ???Confirmed ???Type PNV 153-FA 400 mcg-om3 35 mg-dha tab PO 02/11/25 02/28/25 History 25 mg-epa 5 mg-fish oil chew tablet fluticasone propionate 50 1 spray intranasal Q12H PRN 02/28/25 History mcg/actuation nasal spray,suspension (Flonase Allergy Relief) loratadine 10 mg tablet (Claritin) 10 mg PO QDAY 02/11/25 02/28/25 History Last Menstrual Period: 12/23/24 PFSH PFSH Medical History Seasonal allergies Surgical History Fred teeth extracted Family History Uncle Diabetes Maternal Grandfather Diabetes Maternal Dementia, Onset Age: 80 Paternal Social History adopted: No household members: spouse, family and children housing: house number of children: 2 current occupational status: unemployed current occupation: [employer] current occupational exposures/hazards: No pets and animals: Yes (Avoid litterbox) pets and animals: cat(s) and dog(s) history of recent travel: No sexually active: Yes Smoking Status: Never smoker alcohol intake: current alcohol intake frequency: a few times a month details: Not while substance use type: does not use well-balanced diet: daily or most days caffeine: Yes ([employer] in afternoon- 74mg caffeine. Education to stay under 200mg/day) Type: coffee Number of servings: 1 and other Number of servings: 1 eating out: 1-3 times/week during the past year weight has: remained stable what type of physical activity do you participate in: other details: farm chores frequency: daily duration: 45-60 minutes/day farhad/taoist: Yarsanism seatbelt use: always do you feel safe at home: Yes additional social history: - [place]- Sales History 3 Elective abortions Hx Para 2 Spontaneous abortions Hx # Term Pregnancies Ectopic pregnancies Hx # Pregnancies Multiple births # of living children 2 Past Pregnancies Del. Date Name GA/Weeks Outcome Route Bth Weight Infant Gen Labor Lgth Anesthesia Del Locatn Provider FOB 02/20/21 Hair 40 live - full term 8# 6oz Male epidural [place] Aul tman [place] 09/21/22 [place] 40 live - full term 8# 12oz Male epidural Maurilio Marcos sas [place] Delivery Date: 09/21/22 Last Updated by: Sylvie Lofton elective IOL @ 40wks, large clots after delivery, had injection to stop bleeding, anemic HPI NEW OB LMP 12/23 DAISY 09/29 Details: MERRY CROWE is a 29 year old who presents for New OB visit. OB Visit DAISY Calculator Estimated Delivery Date Method Current WG Current Estimate 09/29/25 LMP (Certain) 9w 4d Other Estimates 09/26/25 Ultrasound #1 10w 0d Estimated Due Date: 09/29/25 Expected Delivery Route/Plan Labor Preferences- CB/BF classes: [] labor support person: [] labor intervention preferences: [] pain management options preferred: [] cut cord/dad catch: [] : [] PP control planned: [] discussed possible routes of delivery and associated risks: [] special requests: [] Specific Issue/Plans Covid status: [] Flu vaccine: [] Tdap vaccine: [] Rhogam: [] LARC form signed: [] Problem list reviewed and updated with the most current plan of care details and appropriate orders placed. Relevant counseling for the gestational age provided. Continue routine care and follow up unless otherwise noted in visit notes/problem list details Initial Weight: 130 lb Date -???-???-???-???-? ??-???-???-???-??? -???-???-???- EGA Weight BP Urine Prot -???-???-???-???-? ??-???-???-???-??? -???-???-???- Glucose FHR FuHt Pres Dilation -???-???-???-???-? ??-???-???-???-??? -???-???-???- Effaced St Visit Note 02/28/25 -???-???-???-???-? ??-???-???-???-??? -???-???-???- 9w 4d 130 lb 4 oz (+4 oz) 107/67 -???-???-???-???-? ??-???-???-???-??? -???-???-???- 173 -???-???-???-???-? ??-???-???-???-??? -???-???-???- KW- CRL cons with dates. dec (more content not included)... Normal [facility] Platelet countOrdered By: Percy Guzman on 02-28-2025 Platelets (Bld) [#/Vol] 240 10*3/uL 150-450 [facility] RBC Auto (Bld) [#/Vol]Ordere d By: Tona Guzman on 05-02-2025 RBC (Bld) [#/Vol] 4.09 10*6/uL Low 4.2-5.4 [facility] Syphilis Antibodieson 2024 Syphilis Abs Non-Reactive Normal Nonreactive [facility] Comment on above: Performed By: #### L 3890.6006, BTS, L509.4006, L509.8002, L3890.6301, L100.0100, L3890.6102 #### [facility] [address] [place], [address] Type AND Screenon 02-28-2025 Ab SCREEN GEL Negative Normal [facility] Comment on above: Order Comment: PN Performed By: #### L 3890.6006, BTS, L509.4006, L509.8002, L3890.6301, L100.0100, L3890.6102 #### [facility] [address] [place], [place], [address] Urine cultureOrdered By: Ritchie Guzman on 02-28-2025 Bacteria identified Cx Nom (U) Positive Abnormal [facility] White blood cell (WBC) count Ordered By: Tona Guzman on 02-28-2025 WBC (Bld) [#/Vol] 7.1 10*3/uL 4.4-11.0 [facility] - Chemistry and C hemistry - challengeOrdered By: Tona Guzman on 02-11-2025 HCG ( test) Ql (U) Positive [facility] Office Visit Reporton 2024 Office Visit Report [facility] [address] [place] [address] OFFICE VISIT Date of Service: 02/11/25 MR#: [id number] Acct: [id number] Patient: MERRY CROWE Rep #: [id number] : 1995 Provider: OMI garcia Age/Sex: 29/F Location: [facility] Status: Signed Intake Vital Signs 02/11/25 09:00 Height 5 ft 4 in Weight: 131 lb BMI 22.4 BP 90/60 Blood Pressure Location Lt brachial Position Sitting Intake Visit Reasons: PNOB nurse visit Endodontics Dentist Required: No Is patient in pain?: No Allergies Environmental Allergies: Uncoded Allergy (Verified 02/11/25 09:10) Other Medications ???Medication ???Instructions ???Recorded ???Confirmed ???Type PNV 153-FA 400 mcg-om3 35 mg-dha tab PO 02/11/25 History 25 mg-epa 5 mg-fish oil chew tablet fluticasone propionate 50 1 spray intranasal Q12H PRN History mcg/actuation nasal spray,suspension (Flonase Allergy Relief) loratadine 10 mg tablet (Claritin) 10 mg PO QDAY 02/11/25 02/11/25 History Is last menstrual period known: Yes Last menstrual period: 12/23/24 Post menopausal: No Patient : Yes Current gender identity: female Nurse's Note: Pt here for PNOB. Office UPT: positive. Vitals WNL. PNOB questions completed. Problem list, allergies, and medications updated. Results POC Urine Office , Urine Positive Last Edit by Sylvie Lofton on 02/11/25 09:09 Assessment and Plan Assessment and Plan (1) Amenorrhea: Status: Acute (2) Supervision of normal : Status: Acute Qualifiers: Normal : other normal Trimester: first trimester Qualified Code(s): Z34.81 - Encounter for supervision of other normal , first trimester Comment: , DAISY 09/29/25, Kem Byers, [place] Orders: Orders POC Urine Today N91.2 - Amenorrhea, unspecified 02/11/25 0950 Date Tona Guzman [facility] OFFICER [facility] OFFICER-C Peggyigner Signature: Date (if applicable) CC: Normal [facility] FACIAL/SINUSES W/O CONTRASTo n 09-13-2021 FACIAL/SINUSES W/O CONTRAST MERRY CAMPOS Female [id number] Ordering physician: Ignacio Blair. LOC:CAT [id number] Attending physician: Ignacio Blair 1995 2 4 DOS: 09/13/21 Acc#: [id number] Exam/Proc: FACIAL/SINUSES W/O CONTRAST Dept: COMPUTED TOMOGRAPHY EXAMINATION: CT OF THE FACE WITHOUT MLNFMQMU99/15/2021 9:[address] MAXILLOFACIAL WITHOUT CONTRAST COMPARISON: No direct comparison available TECHNIQUE: CT of the face was performed without the administration of intravenous contrast. Multiplanar reformatted images are provided for review. Dose modulation, iterative reconstruction, and/or weight based adjustment of the mA/kV was utilized to reduce the radiation dose to as low as reasonably achievable. Noncontrast CT performed according to protocol with multiplanar reconstructions . This exam was performed according to our departmental dose optimization program, and includes the following measures where applicable: automated exposure control, adjustment of the mAs and/or kVp according to patient size and/or exam, and an iterative reconstruction algorithm. HISTORY: ORDERING SYSTEM PROVIDED HISTORY: TECHNOLOGIST PROVIDED HISTORY: Reason for Exam: J32.9 FINDINGS: Near complete opacification maxillary sinuses and ethmoid air cells. Mild circumferential mucosal thickening CT noise sinuses and [id number] mucosal thickening inferior aspect frontal sinuses. Moderate right deviation anterior aspect nasal septum. Occluded ostiomeatal complexes bilaterally. Mastoid air cells and middle ears demonstrate normal architecture. Temporomandibular joints normal in appearance. Globes and retro bulbar soft tissue and to the limits of this exam, the intracranial parenchyma, is grossly normal in appearance. Mild thickening adenoids. Nasopharynx and included portion of oropharynx grossly patent. No acute osseous abnormality. IMPRESSION:[] 1. Significant paranasal sinusitis. Electronically signed By Saran Mobley DO 09/13/2021 10:07:56 AM EST Workstation ID : [id number] REPORT SIGNATURE ON FILE Electronically Signed Date/Time: 09/13/21 1007 Dictated Date/time: 09/13/21 1004 CC: Normal [facility] HCG, QUANTITATIVEon 04-05-20 21 HCG, QUANTITATIVE < 1.0 Normal [facility] Comment on above: Result Comment: REFE RENCE RANGE: Male <2 Non- female <6 female 0-1 week 0-50 1-2 weeks 40-300 2-3 weeks 100-1000 3-4 weeks 500-6000 1-2 months [id number] 2-3 months [id number] 2nd trimester [id number] Performed By: #### B HCG #### [address] [address] HHon 02-21-2021 Hematocrit (Bld) [Volume fraction] 31.4 % Low 34.0-46.0 [facility] ([place] Comment on above: Performed By: #### H H #### [address] [address] Hgb 10.8 G/dL Low 12.0-16.0 [facility] [place] Comment on above: Performed By: #### H H #### [address] [address] ABO/Rh (Gel)on 02-20-2021 ABO/Rh Interp Positive Invalid Interpretation Code [facility] [place] Comment on above: Performed By: #### C BC, ADIFF, ANEU, ABOGEL, ABSGEL #### [address] [address] ABS (Gel)on 02-20-2021 ABSC Interp (Gel) Negative Normal [facility] ([place]) Comment on above: Performed By: #### C BC, ADIFF, ANEU, ABOGEL, ABSGEL #### [address] [address] .Auto Diffon 02-19-2021 Basophil, Absolute 0.00 10 3/mcL Normal 0.00-0.27 [facility] ([place]) Comment on above: Performed By: #### C BC, ADIFF, ANEU, ABOGEL, ABSGEL #### [address] [address] Basophils/100 WBC (Bld) 0.2 % Normal 0.0-2.5 [facility] ([place]) Comment on above: Performed By: #### C BC, ADIFF, ANEU, ABOGEL, ABSGEL #### [address] [address] Eosinophil, Absolute 0.00 10 3/mcL Normal 0.00-0.65 [facility] ([place]) Comment on above: Performed By: #### C BC, ADIFF, ANEU, ABOGEL, ABSGEL #### [address] [address] Eosinophils/100 WBC (Bld) 0.2 % Normal 0.0-6.0 [facility] ([place]) Comment on above: Performed By: #### C BC, ADIFF, ANEU, ABOGEL, ABSGEL #### [address] [address] Lymphocyte, Absolute 1.60 10 3/mcL Normal 0.90-4.32 [facility] ([place]) Comment on above: Performed By: #### C BC, ADIFF, ANEU, ABOGEL, ABSGEL #### [address] [address] Lymphocytes/100 WBC (Bld) 14.2 % Low 20.0-40.0 [facility] ([place]) Comment on above: Performed By: #### C BC, ADIFF, ANEU, ABOGEL, ABSGEL #### [address] [address] Monocyte, Absolute 0.80 10 3/mcL Normal 0.09-1.40 [facility] ([place]) Comment on above: Performed By: #### C BC, ADIFF, ANEU, ABOGEL, ABSGEL #### [address] [address] Monocytes/100 WBC (Bld) 6.8 % Normal 2.0-13.0 [facility] ([place]) Comment on above: Performed By: #### C BC, ADIFF, ANEU, ABOGEL, ABSGEL #### [address] [address] Neutrophils/100 WBC (Bld) 78.6 % High 50.0-75.0 [facility] ([place]) Comment on above: Performed By: #### C BC, ADIFF, ANEU, ABOGEL, ABSGEL #### [address] [address] .NEUABSon 02-19-2021 Neutrophil, Absolute 8.90 10 3/mcL High 2.25-8.10 [facility] ([place]) Comment on above: Performed By: #### C BC, ADIFF, ANEU, ABOGEL, ABSGEL #### [address] [address] CBCon 02-19-2021 Erythrocyte distribution width (RBC) [Ratio] 12.8 % Normal 11.5-15.5 [facility] ([place] Comment on above: Performed By: #### C BC, ADIFF, ANEU, ABOGEL, ABSGEL #### [place] [address] Hematocrit (Bld) [Volume fraction] 32.9 % Low 34.0-46.0 [facility] ([place] Comment on above: Performed By: #### C BC, ADIFF, ANEU, ABOGEL, ABSGEL #### [place] [address] Hgb 11.6 G/dL Low 12.0-16.0 [facility] ([place] Comment on above: Performed By: #### C BC, ADIFF, ANEU, ABOGEL, ABSGEL #### [place] [id number] MCH (RBC) [Entitic mass] 33.9 pg High 27.0-33.0 [facility] ([place]) Comment on above: Performed By: #### C BC, ADIFF, ANEU, ABOGEL, ABSGEL #### [place] [id number] MCHC 35.2 G/dL Normal 32.0-36.0 [facility] ([place]) Comment on above: Performed By: #### C BC, ADIFF, ANEU, ABOGEL, ABSGEL #### [address] [address] MCV (RBC) [Entitic vol] 96.3 fL Normal 80.0-99.0 [facility] ([place]) Comment on above: Performed By: #### C BC, ADIFF, ANEU, ABOGEL, ABSGEL #### [address] [id number] Platelet 186 10 3/mcL Normal 150-450 [facility] ([place] Comment on above: Performed By: #### C BC, ADIFF, ANEU, ABOGEL, ABSGEL #### [address] [address] Platelet mean volume (Bld) [Entitic vol] 9.1 fL Normal 6.6-10.5 [facility] [place] Comment on above: Performed By: #### C BC, ADIFF, ANEU, ABOGEL, ABSGEL #### [address] [address] RBC 3.42 10 6/mcL Low 4.10-5.30 [facility] [place] Comment on above: Performed By: #### C BC, ADIFF, ANEU, ABOGEL, ABSGEL #### [address] [address] WBC 11.40 10 3/mcL High 4.50-10.80 [facility] ([place] Comment on above: Performed By: #### C BC, ADIFF, ANEU, ABOGEL, ABSGEL #### [address] [address] Vital Signs Date Time Vital Sign Value Performing Clinician Marcellus moura 08-25-2025 09:14040 Body height 162.[address] Saba Santacruz MD Work Phone: [facility] 08-25-2025 09:14040 Body mass index (BMI) [Ratio] 26.6 kg/m2 Dr. Saba Santacruz MD Work Phone: [facility] 08-25-2025 09:14040 Body weight 70.[address] Saba Santacruz MD Work Phone: [facility] 08-25-2025 09:14-0400 Diastolic blood pressure 68 mm[Hg] Dr. Saba Santacruz MD Work Phone: [facility] 08-25-2025 09:14-0400 Systolic blood pressure 121 mm[Hg] Dr. Saba Santacruz MD Work Phone: [facility] 08-11-2025 09:26-0400 Body mass index (BMI) [Ratio] 25.9 kg/m2 Dr. Saba Santacruz MD Work Phone: [facility] 08-11-2025 09:26-0400 Body weight 68.[address] Saba Santacruz MD Work Phone: [facility] 08-11-2025 09:26-0400 Diastolic blood pressure 69 mm[Hg] Dr. Saba Santacruz MD Work Phone: [facility] 08-11-2025 09:26-0400 Systolic blood pressure 105 mm[Hg] Dr. Saba Santacruz MD Work Phone: [phone])304-172836 [place] [address] 08-01-2025 09:37-0400 Body height 162.[address] Saba Santacruz MD Work Phone: [facility] 08-01-2025 09:37-0400 Body mass index (BMI) [Ratio] 25.4 kg/m2 Dr. Saba Santacruz MD Work Phone: [facility] 08-01-2025 09:37-0400 Body weight 67.[address] Saba Santacruz MD Work Phone: [facility] 08-01-2025 09:37-0400 Diastolic blood pressure 71 mm[Hg] Dr. Saba Santacruz MD Work Phone: [facility] 08-01-2025 09:37-0400 Systolic blood pressure 110 mm[Hg] Dr. Saba Santacruz MD Work Phone: [phone] [place] [address] 07-14-2025 12:54-0400 Body height 162.[address] Saba Santacruz MD Work Phone: [facility] 07-14-2025 12:54-0400 Body mass index (BMI) [Ratio] 25.8 kg/m2 Dr. Saba Santacruz MD Work Phone: [facility] 07-14-2025 12:54-0400 Body weight 68.[address] Saba Santacruz MD Work Phone: [facility] 07-14-2025 12:54-0400 Diastolic blood pressure 71 mm[Hg] Dr. Saba Santacruz MD Work Phone: [facility] 07-14-2025 12:54-0400 Systolic blood pressure 111 mm[Hg] Dr. Saba Santacruz MD Work Phone: [facility] 06-20-2025 09:22-0400 Body height 162.56 cm Annette WHITEM Work Phone: [facility] 06-20-2025 09:22-0400 Body mass index (BMI) [Ratio] 24.3 kg/m2 Annette WHITEM Work Phone: [facility] 06-20-2025 09:22-0400 Body weight 64.43 kg Annette WHITEM Work Phone: [facility] 06-20-2025 09:22-0400 Diastolic blood pressure 66 mm[Hg] Annette WHITEM Work Phone: [facility] 06-20-2025 09:22-0400 Systolic blood pressure 101 mm[Hg] Annette WHITEM Work Phone: [facility] 05-22-2025 09:21-0400 Body height 162.56 cm Annette WHITEM Work Phone: [facility] 05-22-2025 09:21-0400 Body mass index (BMI) [Ratio] 24.3 kg/m2 Annette WHITEM Work Phone: [facility] 05-22-2025 09:21-0400 Body weight 64.46 kg Annette Adames CNM Work Phone: [facility] 05-22-2025 09:21-0400 Diastolic blood pressure 58 mm[Hg] Annette Adames CNM Work Phone: [facility] 05-22-2025 09:21-0400 Systolic blood pressure 103 mm[Hg] Annette Adames CNM Work Phone: [facility] 04-25-2025 08:48-0400 Body height 162.56 cm Annette Adames CNM Work Phone: [facility] 04-25-2025 08:48-0400 Body mass index (BMI) [Ratio] 23.8 kg/m2 Annette Adames CNM Work Phone: [facility] 04-25-2025 08:48-0400 Body weight 62.82 kg Annette Adames CNM Work Phone: [facility] 04-25-2025 08:48-0400 Diastolic blood pressure 70 mm[Hg] Annette Adames CNM Work Phone: [facility] 04-25-2025 08:48-0400 Systolic blood pressure 109 mm[Hg] Annette Adames CNM Work Phone: [facility] 03-28-2025 14:22-0400 Body height 162.56 cm Annette Adames CNM Work Phone: [facility] 03-28-2025 14:22-0400 Body mass index (BMI) [Ratio] 23.1 kg/m2 Annette Adames CNM Work Phone: [facility] 03-28-2025 14:22-0400 Body weight 60.95 kg Annette Adames CNM Work Phone: [facility] 03-28-2025 14:22-0400 Diastolic blood pressure 80 mm[Hg] Annette Adames CNM Work Phone: [facility] 03-28-2025 14:22-0400 Systolic blood pressure 115 mm[Hg] Annette Adames CNM Work Phone: [facility] 02-28-2025 14:53-0400 Body height 162.56 cm Annette Adames CNM Work Phone: [facility] 02-28-2025 14:53-0400 Body mass index (BMI) [Ratio] 22.3 kg/m2 Annette Adames CNM Work Phone: [facility] 02-28-2025 14:53-0400 Body weight 59.08 kg Annette Adames CNM Work Phone: [facility] 02-28-2025 14:53-0400 Diastolic blood pressure 67 mm[Hg] Annette Adames CNM Work Phone: [facility] 02-28-2025 14:53-0400 Systolic blood pressure 107 mm[Hg] Annette Adames CNM Work Phone: [facility] 02-11-2025 09:00-0400 Body mass index (BMI) [Ratio] 22.4 kg/m2 Annette Adames CNM Work Phone: [facility] 02-11-2025 09:00-0400 Body weight 59.42 kg Annette Adames CNM Work Phone: [facility] 02-11-2025 09:00-0400 Diastolic blood pressure 60 mm[Hg] Annette Adames CNM Work Phone: [facility] 02-11-2025 09:00-0400 Systolic blood pressure 90 mm[Hg] Annette Adames CNM Work Phone: [facility] Encounters Encounter Date Encounter Type Care Provider Facility Start: 09-11-2025 ambulatory [facility]ann [facility]ty:[facility] Start: 08-25-2025 End: 08-25-2025 ambulatory Annette Adames Facility:[facility] Start: 08-11-2025 End: 08-11-[address] Saba Santacruz MD -[facility] Work Phone: Start: 08-11-2025 End: 08-11-[address] Saba Santacruz MD Work Phone: -[facility] Start: 08-11-2025 End: 08-11-2025 ambulatory Saba Santacruz Facility:[facility] Start: 08-01-2025 End: 08-01-[address] Leeann Starr DO -[facility] Work Phone: Start: 08-01-2025 End: 08-01-[address] Saba Santacruz MD Work Phone: -[facility] Start: 07-14-2025 End: 07-14-2025 Patient encounter procedure Tona BRAGA -[facility] Work Phone: Start: 07-14-2025 End: 07-14-[address] Saba Santacruz MD Work Phone: [facility] Start: 07-14-2025 End: 07-14-2025 ambulatory Saba Santacruz Facility:[facility] Start: 06-20-2025 End: 06-20-[address] Saba Santacruz MD -[facility] Work Phone: Start: 06-20-2025 End: 06-20-2025 ambulatory Annette Adames CNM Work Phone: [facility] Start: 05-22-2025 End: 05-22-2025 Patient encounter procedure Annette Adames CNM -[facility] Work Phone: Start: 05-22-2025 End: 05-22-2025 ambulatory Annette Adames CNM Work Phone: [facility] Start: 05-05-2025 End: 05-05-2025 ambulatory MD [facility] Start: 04-25-2025 End: 04-25-[address] Leeann Starr DO -[facility] Work Phone: Start: 04-25-2025 End: 04-25-2025 ambulatory Annette Adames CNM Work Phone: [facility] Work Phone: Start: 03-28-2025 End: 03-28-[address] Leeann Starr DO -[facility] Work Phone: Start: 03-28-2025 End: 03-28-2025 ambulatory Annette Adames CNM Work Phone: [facility] Work Phone: Start: 02-28-2025 End: 02-28-2025 Patient encounter procedure Annette Adames CNM -[facility] Work Phone: Start: 02-28-2025 End: 02-28-2025 ambulatory Annette Adames CNM Work Phone: [facility] Work Phone: Start: 02-28-2025 End: 02-28-2025 ambulatory Annette Adames Facility:[facility] Start: 02-11-2025 End: 02-11-2025 Patient encounter procedure Tona Guzman [employer]FF [employer] OFFICER-C -[facility] Work Phone: Start: 02-11-2025 End: 02-11-2025 ambulatory Tona Guzman [employer]AFF [employer] OFFICER Facility:[facility] Procedures Date Procedure Procedure Detail Performing Clinician Start: 08-11-2025 Total iron binding c apacity measurement Dr. Saba Santacruz MD Work Phone: Start: 07-14-2025 Serologic test for syphilis Dr. Saba Santacruz MD Work Phone: Start: 02-28-2025 Liquid based cervica l cytology screening Annette Adames CNM Work Phone: Comment on above: NEGATIVE FOR INTRAEP ITHELIAL LESION OR MALIGNANCY. This liquid based Th inPrep(R) pap test was screened withthe use of an image guided system. The HPV DNA reflex c riteria were not met with this specimenresult therefore, no HPV testing was performed.Performed at: [address] [id number] Director: Angeline Genao MD, Phone: [phone] Start: 02-28-2025 Hepatitis C antibody measurement Annette Adames CNM Work Phone: Comment on above: Reactive: Presumptiv e evidence of antibodies to HCV. Follow CDC recommendations for supplemental testing.Non-Reactive: Antibodies to HCV were not detected; does not exclude the possibility of exposure to HCVReactive Results are presumptive evidence of antibodies to HCV. Follow CDC recommendations for supplemental testing.Order confirmation testing: HCV Quant by PCR testing - HCVPCR #[id number] Non Reactive: < 0.8 Equivocal: >/= 0.8 to < 1.0 Reactive: >/= 1.0The CDC requires that a reactive/equivocal HCV antibody result be sent out for confirmation. HCV Quant by PCR testing. Start: 02-28-2025 Rubella IgG measurement Annette Adames [facility] Work Phone: Comment on above: Antibody Result: Int erpretationNon-Reactive: Non- ImmuneReactive: ImmuneThe following results were obtained with the [employer] Rubella IgG assay. Results from assays of other manufacturers cannot be used interchangeably. Start: 02-28-2025 Serologic test for syphilis Annette Adames [facility] Work Phone: Start: 02-28-2025 Urine culture Annette tavares [facility] Work Phone: Plan of Treatment Date Care Activity Detail Author Start: 08-25-2025 End: 08-25-2025 Patient encounter procedure Anemia in -[facility] Work Phone: Start: 08-01-2025 Vitamin B12 measurement [facility] Start: 08-01-2025 [facility] Start: 07-14-2025 CBC W Auto Different ial panel - Blood [facility] Start: 07-14-2025 Measurement of gluco se 2 hours after glucose challenge for glucose tolerance test [facility] Start: 07-14-2025 Serologic test for syphilis [facility] Start: 07-14-2025 [facility] CBC W Auto Different ial panel - Blood [facility] CBC W Auto Different ial panel - Blood [facility] Erythrocyte mean corpuscular volume determination [facility] Ferritin [Mass/volum e] in Serum or Plasma [facility] Hematocrit [Volume Fraction] of Blood [facility] Hemoglobin [Mass/vol ume] in Blood [facility] Iron and Iron bindin g capacity panel - Serum or Plasma [facility] Leukocytes [#/volume ] in Blood [facility] Mean corpuscular hemoglobin concentration determination [facility] Mean corpuscular hemoglobin determination [facility] Measurement of gluco se 2 hours after glucose challenge for glucose tolerance test [facility] Neutrophil count [facility] Neutrophil percent differential count [facility] Platelets [#/volume] in Blood [facility] Red blood cell count [facility] Red cell distributio n width determination [facility] Serologic test for syphilis [facility] Payers Date Payer Category Payer Self-pay 2025 Unknown [id number] 1995 Unknown [id number] 2.16. [id number] Unknown [id number] 2.16.8 [id number] Unknown [id number] 2.16.8 [id number] Unknown [id number] 2.16.8 [id number] Unknown [id number] 2.16.8 [id number] Unknown [id number] 2.16.8 [id number] Unknown [id number] 2.16.8 [id number] Unknown [id number] 2.16.8 [id number] Unknown [id number] 2.16.8 [id number] Unknown [id number] 2.16.8 [id number] Unknown [id number] 2.16.8 [id number] Unknown [id number] 2.16.8 [id number] Unknown [id number] 2.16.8 [id number] Unknown [id number] 2.16.8 [id number] Unknown [id number] 2.16.8 [id number] Social History Date Type Detail Facility Start: 02-11-2025 Tobacco smoking stat [facility] Never smoked tobacco (finding) [facility] Start: 1995 Sex Assigned At Female [facility] Gender Identity Identifies as fe male gender (finding) [facility] Clinical Notes 01-22-2021 to 08-11-2025 Note Date & Type Note Facility 08-11-2025 Progress note [facility] 08-01-2025 Progress note [facility] 06-20-2025 Progress note [facility] 05-22-2025 Evaluation note Diagnosis Onset Date Resolution Hx of hemorrhage, currently acute May 22, 2025 9:18am acute May 22 9:18am Supervision of normal acute May 22, 2025 9:18am Amenorrhea resolved May 22 9:18am Hx of hemorrhage, currently acute June 20 9:17am acute June 20 9:17am Supervision of normal acute June 20 9:17am Hx of hemorrhage, currently acute July 14, 2025 12:42pm acute June 12:42pm Supervision of normal acute July 14, 2025 12:42pm Anemia in acute Octob er 2024 9:33am Hx of hemorrhage, currently acute August 01 9:33am acute August 01 9:33am Supervision of normal acute August 01 9:33am Anemia in acute Octob er 2024 9:22am Hx of hemorrhage, currently acute August 11 9:22am acute August 11, 2025 9:22am Supervision of normal acute August 11 9:22am Anemia in acute Octob er 2024 9:11am Hx of hemorrhage, currently acute August 25 9:11am acute August 25, 2025 9:11am Supervision of normal acute August 25 9:11am [facility] Work Phone: [phone]) 445-699507-24-2025 Progress [facility] [address] [place] [address], [address] [place] [address] OFFICE VISIT Date of Service: 05/22/25 MR#: [id number] Acct: [id number] Name: MERRY CAMPOS Rep #: [id number] : 1995 Provider: JEY Adames Age/Sex: 29/F Location: [facility] Status: Signed Intake Vital Signs 04/25/25 08:48 05/22/25 09:21 Height 5 ft 4 in 5 ft 4 in Weight: 142 lb 2 oz BMI 24.3 BP 103/58 L Intake Visit Reasons: 21wk ob Chief Complaint: 21wk OB Endodontics Dentist Required: No Is patient in pain?: No Allergies Environmental Allergies: Uncoded Allergy (Verified 05/22/25 09:21) Other Medications ?Medication ?Instructions ?Recorded ?Confirmed ?Type PNV 153-FA 400 mcg-om3 35 mg-dha tab PO 02/11/2505/22 History 25 mg-epa 5 mg-fish oil chew tablet fluticasone propionate 50 1 spray intranasal Q12H PRN 02/11/25 05/22/25 History mcg/actuation nasal spray,suspension (Flonase Allergy Relief) loratadine 10 mg tablet (Claritin) 10 mg PO QDAY 02/1105/22/25 History Last Menstrual Period: 12/23/24 : No PFSH PFSH Medical History Seasonal allergies Surgical History Fred teeth extracted Family History Uncle Diabetes Maternal Grandfather Diabetes Maternal Dementia, Onset Age: 80 Paternal Social History adopted: No household members: spouse, family and children housing: house number of children: 2 current occupational status: unemployed current occupation: [employer] current occupational exposures/hazards: No pets and animals: Yes (Avoid litterbox) pets and animals: cat(s) and dog(s) history of recent travel: No sexually active: Yes Smoking Status: Never smoker alcohol intake: current alcohol intake frequency: a few times a month details: Not while substance use type: does not use well-balanced diet: daily or most days caffeine: Yes ([employer] in afternoon- 74mg caffeine. Education to stay under 200mg/day) Type: coffee Number of servings: 1 and other Number of servings: 1 eating out: 1-3 times/week during the past year weight has: remained stable what type of physical activity do you participate in: other details: farm chores frequency: daily duration: 45-60 minutes/day farhad/taoist: Yarsanism seatbelt use: always do you feel safe at home: Yes additional social history: - [place]- Sales History 3 Elective abortions Hx Para 2 Spontaneous abortions Hx # Term Pregnancies Ectopic pregnancies Hx # Pregnancies Multiple births # of living children 2 Past Pregnancies Del. Date Name GA/Weeks Outcome Route Bth Weight Gen Labor Lgth Anesthesia Del Locatn Provider FOB 02/20/21 Hair 40 live - full term 8# 6oz Male epidural [place] [facility] 09/21/22 Kem 40 live - full term 8# 12oz Male epidural [facility] Delivery Date: 09/21/22 Last Updated by: Sylvie Lofton elective IOL @ 40wks, large clots after delivery, had injection to stop bleeding, anemic HPI 21wk ob Details: MERRY CAMPOS is a 29 year old who presents for routine OB visit. OB Visit DAISY Calculator Estimated Delivery Date Method Current WG Current Estimate 09/29/25 LMP (Certain) 21w 3d Other Estimates 09/26/25 Ultrasound #1 21w 6d Expected Delivery Route/Plan Labor Preferences- CB/BF classes: [] labor support person: [] labor intervention preferences: [] pain management options preferred: [] cut cord/dad catch: [] : [] PP control planned: [] discussed possible routes of delivery and associated risks: [] special requests: [] Specific Issue/Plans Covid status: [] Flu vaccine: [] Tdap vaccine: [] Rhogam: [] LARC form signed: [] Problem list reviewed and updated with the most current plan of care details and appropriate ordersplaced. Relevant counseling for the gestational age provided. Continue routine care and follow up unless otherwise noted in visit notes/problem list details Initial Weight: 130 lb Date -?-?-?-?-?-?-?-?-?-?-?-?- EGA Weight BP Urine Prot -?-?-?-?-?-?-?-?-?-?-?-?- Glucose FHR FuHt Pres Dilation -?-?-?-?-?-?-?-?-?-?-?-?- Effaced St Visit Note 02/28/25 -?-?-?-?-?-?-?-?-?-?-?--?- 9w 4d 130 lb 4 oz (+4 oz) 107/67 -?-?-?-?-?-?-?-?-?-?-?-?- 173 -?-?-?-?-?-?-?-?-?-?-?-?- KW- CRL cons wit h dates. declines NIPT 03/28/25 -?-?-?-?-?-?-?-?-?-?-?-?- 13w 4d 134 lb 6 oz (+4 lb 6 oz) 115/80 Negative -?-?-?-?-?-?-?-?-?-?-?-?- Negative 150 -?-?-?-?-?-?-?-?-?-?-?-?- JV- c/o some denice sepulveda. happens mostly when hungry. encouraged to carry around snacks and try compression stockings. SHe tells me today about her 's history of testicular cancer. 04/25/25 -?-?-?-?-?-?-?-?-?-?-?-?- 17w 4d 138 lb 8 oz (+8 lb 8 oz) 109/70 Negative -?-?-?-?-?-?-?-?-?-?-?-?- Negative 156 -?-?-?-?-?-?-?-?-?-?-?-?- JV- no lof, vagi nal bleeding, or cramping. has anatomy scan scheduled. 05/22/25 -?-?-?-?-?-?-?-?-?-?-?-?- 21w 3d 142 lb 2 oz (+12 lb 2 oz) 103/58 Negative -?-?-?-?-?-?-?-?-?-?-?-?- Negative 160 -?-?--?-?-?-?-?-?-?-?-?-?- KW- no vb/crampi ng. annita adair. reviewed US and patient does not want to get additional US due to rude tech at [facility] and lack of child care assistant. ACOG First Trimester First Trimester: Desire for , Alcohol, Tobacco Cessation, Illicit/Recreational Drug/Substance Use, Intimate Partner Violence, Barriers to care, Anticipated Course of Care, Use of Any medications, Sexual activity, Exercise, Dental Care, Sauna/Hot tub use, Seat Belt use, Childbirth c lasses/Hospital facilities, Travel, Indications for Ultrasound and Screening for Aneuploidy; Discussed Unstable Housing, Discussed Communication Barriers, Discussed Environmental/Work Hazards, Discussed Toxoplasmosis Precations and Discussed Second Trimester Second Trimester: Signs and Symptoms of Labor, Selecting a care provider, Reproductive Life Planning & Contreception, Care Planning, Depression/Anxiety and Intimate Partner Violence; Discussed Tobacco Cessation Third Trimester Third Trimester: Pain Management Plans, Labor support person(s), Immediate Larc, Signs and Symptoms of Preeclampsia, Infant Feeding No , Education and Family Medical Leave or Disability Forms ROS Const Reports system reviewed and no additional complaints, except as documented Eyes Reports system reviewed and no additional complaints, except as documented ENT Reports system reviewed and no additional complaints, except as documented Card Reports system reviewed and no additional complaints, except as documented Resp Reports system reviewed and no additional complaints, except as documented GI Reports system reviewed and no additional complaints, except as documented, Denies nausea and Denies vomiting Reports system reviewed and no additional complaints, except as documented Musc Reports system reviewed and no additional complaints, except as documented Skin/Breast Reports system reviewed and no additional complaints, except as documented Neuro Yes system reviewed and no additional complaints, except as documented Psych Reports system reviewed and no additional complaints, except as documented Endo Reports system reviewed and no additional complaints, except as documented Clyde/Lymph Reports system reviewed and no additional complaints, except as documented Aller/Immun Reports system reviewed and no additional complaints, except as documented Exam Const General: cooperative, healthy appearing and no acute distress Orientation: alert, awake and oriented x3 Neck Neck: normal visual inspection and full ROM Resp Effort & Inspection: normal respiratory effort, able to speak in complete sentences and symmetric chest movement GI Inspection: normal to inspection Palpation: soft and other Other: gravid Skin General: no rashes or lesions noted Neuro General: patient alert, patient awake and patient oriented x3 Cognition: normal cognition Speech: speech normal Gait: normal gait Motor: muscle tone normal throughout Extrem General: normal to inspection and full ROM Psych Appearance: grossly normal Mental Status: mental status grossly normal Mood: congruent mood Affect: normal affect Speech and Movement: speech and movement normal Attitude: cooperative Thought Process: normal Thought Content: normal Judgment: judgment good Results POC Urinalysis 2 Dip (Clinic) Office Urine Glucose Negative Last Edit by Sushma Paredes on 05/22/25 09:32 Office Urine Protein Negative Last Edit by Sushma Paredes on 05/22/25 09:32 Coding Level of Care Code OB Routine Diagnoses Hx of hemorrhage, currently O09.299 Encounter for supervision of other normal in first trimester Z34.81 Normal : other normal Trimester: first trimester 21 weeks gestation of Z3A.21 Weeks of gestation: 21 weeks Amenorrhea N91.2 Assessment and Plan Assessment and Plan (1) Hx of hemorrhage, currently : Status: Acute Comment: Pt states passed large clots & had 2 shots (2) Supervision of normal : Status: Acute Qualifiers: Normal : other normal Trimester: first trimester Qualified Code(s): Z34.81 - Encounter for supervision of other normal , first trimester Comment: [id number], DAISY 09/29/25, Kem Byers, [place] (3) : Status: Acute Qualifiers: Weeks of gestation: 21 weeks Qualified Code(s): Z3A.21 - 21 weeks gestation of Comment: declined NIPT & Carrier testing (4) Amenorrhea: Status: Acute Comment: +UPT Orders: Orders POC Urinalysis 2 Dip (Clinic) Today Plan Details Additional Comments: ACOG trimester education reviewed and updated. see problem list details for updated plan management information and see below for orders placed atthis visit. [place] appropriate handout given. 05/22/25 0941 s CHRISTOPHERM> Date _ Annette Adames CNM Cosigner Signature: Date (if applicable) CC: ~ [facility]06-27-2025 Evaluation note* Diagnosis Onset Date Resolution Status Admit Date Hx of hemorrhage, currently acute April 25 8:46am acute April 25 8:46am Supervision of normal acute April 25, 2025 8:46am Amenorrhea resolved April 25 8:46am Hx of hemorrhage, currently acute May 22 9:18am acute May 22 9:18am Supervision of normal acute May 22, 2025 9:18am Amenorrhea resolved May 22 9:18am Hx of hemorrhage, currently acute June 20, 2025 9:17am acute June 20, 9:17am Supervision of normal acute June 20 9:17am Hx of hemorrhage, currently acute June 12:42pm acute June 12:42pm Supervision of normal acute July 14, 2025 12:42pm [facility] Work Phone: 1(325) 384-967306-27-2025 Evaluation note* Diagnosis Onset Date Resolution Status Admit Date Hx of hemorrhage, currently acute April 25 8:46am acute April 25 8:46am Supervision of normal acute April 25, 2025 8:46am Amenorrhea resolved April 25 8:46am Hx of hemorrhage, currently acute May 22 9:18am acute May 22 9:18am Supervision of normal acute May 22, 2025 9:18am Amenorrhea resolved May 22 9:18am Hx of hemorrhage, currently acute June 20, 2025 9:17am acute June 20, 2 025 9:17am Supervision of normal acute June 20 9:17am Hx of hemorrhage, currently acute June 12:42pm acute June 12:42pm Supervision of normal acute July 14, 2025 12:42pm Anemia in acute 2024 9:33am Hx of hemorrhage, currently acute August 01, 2025 9:33am acute August 01 9:33am Supervision of normal acute August 01 9:33am [facility] Work Phone: 1(394) 604-764805-30-2025 Evaluation note* Diagnosis Onset Date Resolution Status Admit Date Hx of hemorrhage, currently acute March 28 2:50pm acute March 28, 2025 2:50pm Supervision of normal acute March 28, 2025 2 :50pm Amenorrhea resolved March 28, 2025 2:50pm Hx of hemorrhage, currently acute April 25 8:46am acute April 25 8:46am Supervision of normal acute April 25, 2025 8:46am Amenorrhea resolved April 25 8:46am Hx of hemorrhage, currently acute May 22 9:18am acute May 22 9:18am Supervision of normal acute May 22, 2025 9:18am Amenorrhea resolved May 22 9:18am Hx of hemorrhage, currently acute June 20, 2025 9:17am acute June 20, 2 025 9:17am Supervision of normal acute June 20 9:17am Hx of hemorrhage, currently acute June 12:42pm acute June 12:42pm Supervision of normal acute July 14, 2025 12:42pm [facility] Work Phone: 1(756) 604-774505-02-2025 Evaluation note* Diagnosis Onset Date Resolution Status Admit Date Hx of hemorrhage, currently acute February 28, 2025 2:48pm acute February 28, 2025 2:48pm Supervision of normal acute February 28, 2025 2: 48pm Amenorrhea resolved February 28, 2025 2:48pm Hx of hemorrhage, currently acute March 28 2:50pm acute March 28, 2025 2:50pm Supervision of normal acute March 28, 2025 2 :50pm Amenorrhea resolved March 28, 2025 2:50pm Hx of hemorrhage, currently acute April 25 8:46am acute April 25 8:46am Supervision of normal acute April 25, 2025 8:46am Amenorrhea resolved April 25 8:46am Hx of hemorrhage, currently acute May 22 9:18am acute May 22 9:18am Supervision of normal acute May 22, 2025 9:18am Amenorrhea resolved May 22 9:18am Hx of hemorrhage, currently acute June 20, 2025 9:17am acute June 20, 9:17am Supervision of normal acute June 20 9:17am [facility] Work Phone: 1(784) 200-534704-15-2025 Evaluation note* Diagnosis Onset Date Resolution Status Admit Date Amenorrhea acute February 11 8:49am Supervision of normal acut e February 11, 2025 8:49am Amenorrhea acute February 28, 2025 2:48pm Hx of hemorrhage, currently acute February 28, 2025 2:48pm acute February 28, 2025 2:48pm Supervision of normal acut e February 28, 2025 2:48pm [facility] Work Phone: 1(321) 374-328604-15-2025 Evaluation note* Diagnosis Onset Date Resolution Status Admit Date Amenorrhea acute February 11 8:49am Supervision of normal acut e February 11, 2025 8:49am Amenorrhea acute February 28, 2025 2:48pm Hx of hemorrhage, currently acute February 28, 2025 2:48pm acute February 28, 2025 2:48pm Supervision of normal acut e February 28, 2025 2:48pm Amenorrhea acute March 28, 2025 2:50pm Hx of hemorrhage, currently acute March 28 2:50pm acute March 28, 2025 2:50pm Supervision of normal acut e March 28, 2025 2:50pm [facility] Work Phone: 1(708) 198-102604-15-2025 Evaluation note* Diagnosis Onset Date Resolution Status Admit Date Amenorrhea acute February 11 8:49am Supervision of normal acut e February 11, 2025 8:49am Amenorrhea acute February 28, 2025 2:48pm Hx of hemorrhage, currently acute February 28, 2025 2:48pm acute February 28, 2025 2:48pm Supervision of normal acut e February 28, 2025 2:48pm Amenorrhea acute March 28, 2025 2:50pm Hx of hemorrhage, currently acute March 28 2:50pm acute March 28, 2025 2:50pm Supervision of normal acut e March 28, 2025 2:50pm Amenorrhea acute April 25 8:46am Hx of hemorrhage, currently acute April 25 8:46am acute April 25 8:46am Supervision of normal acut e April 25, 2025 8:46am [facility] [address] [employer] [facility] Work Phone: 1(861) 209-394504-15-2025 Evaluation note* Diagnosis Onset Date Resolution Status Admit Date Amenorrhea acute February 11 8:49am Supervision of normal acut e February 11, 2025 8:49am Amenorrhea acute February 28, 2025 2:48pm Hx of hemorrhage, currently acute February 28, 2025 2:48pm acute February 28, 2025 2:48pm Supervision of normal acut e February 28, 2025 2:48pm Amenorrhea acute March 28, 2025 2:50pm Hx of hemorrhage, currently acute March 28 2:50pm acute March 28, 2025 2:50pm Supervision of normal acut e March 28, 2025 2:50pm Amenorrhea acute April 25 8:46am Hx of hemorrhage, currently acute April 25 8:46am acute April 25 8:46am Supervision of normal acut e April 25, 2025 8:46am Amenorrhea acute May 22 9:18am Hx of hemorrhage, currently acute May 22 9:18am acute May 22 9:18am Supervision of normal acut e May 22, 2025 9:18am [facility] Work Phone: 1(154) 329-739803-26-2021 Note. MICRO - Microbiology PROCEDURE: Group B Strep PCR [*1] SOURCE: Vaginal Rectal BODY SITE: COLLECTED DATE/TIME: 01/20/2021 10:37 EDT RECEIVED DATE/TIME: 01/20/2021 20:49 EDT START DATE/TIME: 01/20/2021 20:49 EDT FREE TEXT SOURCE: FINAL REPORTS Final Report [] Verified Date/Time/Personnel: 01/22/2021 11:59 EDT GBS NEGATIVE. Group B Streptococcus DNA not detected by Real-Time. Polymerase Chain Reaction (PCR). A negative result does not rule out the possibility of Group B Streptococcus False negative results may occur when Group B Streptococcus concentration is below the level of detection of 200 CFU/mL of sample preparation reagent. If the patient has signs or symptoms of infection, other laboratory tests and clinical information should be used to confirm the negative result. This test is not intended to differentiate carriers of Group B Streptococcus from those with Streptococcus disease. Performing Locations *1: This test was performed at: [facility], [address] [place] [address], [facility]- , [facility] ([place])Comment on above:Performed By: #### GBPCR #### [place] [address]Progress note Author Annette Adames [facility] Note Date/Time May 22, 2025 9:41 am [facility]'s [address], [address] [place] [address] OFFICE VISIT Date of Service: 05/22/25 MR#: [id number] Acct: [id number] Name: MERRY CAMPOS Rep #: [id number] : 1995 Provider: JEY Adames Age/Sex: 29/F Location: [facility] Status: Signed Intake Vital Signs 04/25/25 08:48 05/22/25 09:21 Height 5 ft 4 in 5 ft 4 in Weight: 142 lb 2 oz BMI 24.3 BP 103/58 L Intake Visit Reasons: 21wk ob Chief Complaint: 21wk OB Endodontics Dentist Required: No Is patient in pain?: No Allergies Environmental Allergies: Uncoded Allergy (Verified 05/22/25 09:21) Other Medications ?Medication ?Instructions ?Recorded ?Confirmed ?Type PNV 153-FA 400 mcg-om3 35 mg-dha tab PO 02/11/2505/22 History 25 mg-epa 5 mg-fish oil chew tablet fluticasone propionate 50 1 spray intranasal Q12H PRN 02/11/25 05/22/25 History mcg/actuation nasal spray,suspension (Flonase Allergy Relief) loratadine 10 mg tablet (Claritin) 10 mg PO QDAY 02/1105/22/25 History Last Menstrual Period: 12/23/24 : No PFSH PFSH Medical History Seasonal allergies Surgical History Fred teeth extracted Family History Uncle Diabetes Maternal Grandfather Diabetes Maternal Dementia, Onset Age: 80 Paternal Social History adopted: No household members: spouse, family and children housing: house number of children: 2 current occupational status: unemployed current occupation: [employer] current occupational exposures/hazards: No pets and animals: Yes (Avoid litterbox) pets and animals: cat(s) and dog(s) history of recent travel: No sexually active: Yes Smoking Status: Never smoker alcohol intake: current alcohol intake frequency: a few times a month details: Not while substance use type: does not use well-balanced diet: daily or most days caffeine: Yes (Clean Energy in afternoon- 74mg caffeine. Education to stay under 200mg/day) Type: coffee Number of servings: 1 and other Number of servings: 1 eating out: 1-3 times/week during the past year weight has: remained stable what type of physical activity do you participate in: other details: farm chores frequency: daily duration: 45-60 minutes/day farhad/taoist: Yarsanism seatbelt use: always do you feel safe at home: Yes additional social history: - [employer]- Sales History 3 Elective abortions Hx Para 2 Spontaneous abortions Hx # Term Pregnancies Ectopic pregnancies Hx # Pregnancies Multiple births # of living children 2 Past Pregnancies Del. Date Name GA/Weeks Outcome Route Bth Weight Infant Gen Labor Lgth Anesthesia Del Locatn Provider FOB 02/20/21 Hair 40 live - full term 8# 6oz Male epidural [place] A iftikhar Adams 09/21/22 [place] 40 live - full term 8# 12oz Male epidural Maurilio Vito Thakkarchary Delivery Date: 09/21/22 Last Updated by: Sylvie Lofton elective IOL @ 40wks, large clots after delivery, had injection to stop bleeding, anemic HPI 21wk ob Details: MERRY CAMPOS is a 29 year old who presents for routine OB visit. OB Visit DAISY Calculator Estimated Delivery Date Method Current WG Current Estimate 09/29/25 LMP (Certain) 21w 3d Other Estimates 09/26/25 Ultrasound #1 21w 6d Expected Delivery Route/Plan Labor Preferences- CB/BF classes: [] labor support person: [] labor intervention preferences: [] pain management options preferred: [] cut cord/dad catch: [] : [] PP control planned: [] discussed possible routes of delivery and associated risks: [] special requests: [] Specific Issue/Plans Covid status: [] Flu vaccine: [] Tdap vaccine: [] Rhogam: [] LARC form signed: [] Problem list reviewed and updated with the most current plan of care details and appropriate orders placed. Relevant counseling for the gestational age provided. Continue routine care and follow up unless otherwise noted in visit notes/problem list details Initial Weight: 130 lb Date -?-?-?-?-?-?-?-?-?-?-?-?- EGA Weight BP Urine Prot -?-?-?-?-?-?-?-?-?-?-?-?- Glucose FHR FuHt Pres Dilation -?-?-?-?-?-?-?-?-?-?-?-?- Effaced St Visit Note 02/28/25 -?-?-?-?-?-?-?-?-?-?-?--?- 9w 4d 130 lb 4 oz (+4 oz) 107/67 -?-?-?-?-?-?-?-?-?-?-?-?- 173 -?-?-?-?-?-?-?-?-?-?-?-?- KW- CRL cons wit h dates. declines NIPT 03/28/25 -?-?-?-?-?-?-?-?-?-?-?-?- 13w 4d 134 lb 6 oz (+4 lb 6 oz) 115/80 Negative -?-?-?-?-?-?-?-?-?-?-?-?- Negative 150 -?-?-?-?-?-?-?-?-?-?-?-?- JV- c/o some denice sepulveda. happens mostly when hungry. encouraged to carry around snacks and try compression stockings. SHe tells me today about her 's history of testicular cancer. 04/25/25 -?-?-?-?-?-?-?-?-?-?-?-?- 17w 4d 138 lb 8 oz (+8 lb 8 oz) 109/70 Negative -?-?-?-?-?-?-?-?-?-?-?-?- Negative 156 -?-?-?-?-?-?-?-?-?-?-?-?- JV- no lof, vagi nal bleeding, or cramping. has anatomy scan scheduled. 05/22/25 -?-?-?-?-?-?-?-?-?-?-?-?- 21w 3d 142 lb 2 oz (+12 lb 2 oz) 103/58 Negative -?-?-?-?-?-?-?-?-?-?-?-?- Negative 160 -?-?--?-?-?-?-?-?-?-?-?-?- KW- no vb/crampi ng. annita fm. reviewed US and patient does not want to get additional US due to rude tech at [facility] and lack of child care assistant. ACOG First Trimester First Trimester: Desire for , Alcohol, Tobacco Cessation, Illicit/Recreational Drug/Substance Use, Intimate Partner Violence, Barriers to care, Anticipated Course of Care, Use of Any medications, Sexual activity, Exercise, Dental Care, Sauna/Hot tub use, Seat Belt use, Childbirth classes/Hospital facilities, Travel, Indications for Ultrasound and Screening for Aneuploidy; Discussed Unstable Housing, Discussed Communication Barriers, Discussed Environmental/Work Hazards, Discussed Toxoplasmosis Precations and Discussed Second Trimester Second Trimester: Signs and Symptoms of Labor, Selecting a care provider, Reproductive Life Planning & Contreception, Care Planning, Depression/Anxiety and Intimate Partner Violence; Discussed Tobacco Cessation Third Trimester Third Trimester: Pain Management Plans, Labor support person(s), Immediate Larc, Signs and Symptoms of Preeclampsia, Feeding No , Education and Family Medical Leave or Disability Forms ROS Const Reports system reviewed and no additional complaints, except as documented Eyes Reports system reviewed and no additional complaints, except as documented ENT Reports system reviewed and no additional complaints, except as documented Card Reports system reviewed and no additional complaints, except as documented Resp Reports system reviewed and no additional complaints, except as documented GI Reports system reviewed and no additional complaints, except as documented, Denies nausea and Denies vomiting Reports system reviewed and no additional complaints, except as documented Musc Reports system reviewed and no additional complaints, except as documented Skin/Breast Reports system reviewed and no additional complaints, except as documented Neuro Yes system reviewed and no additional complaints, except as documented Psych Reports system reviewed and no additional complaints, except as documented Endo Reports system reviewed and no additional complaints, except as documented Clyde/Lymph Reports system reviewed and no additional complaints, except as documented Aller/Immun Reports system reviewed and no additional complaints, except as documented Exam Const General: cooperative, healthy appearing and no acute distress Orientation: alert, awake and oriented x3 Neck Neck: normal visual inspection and full ROM Resp Effort & Inspection: normal respiratory effort, able to speak in complete sentences and symmetric chest movement GI Inspection: normal to inspection Palpation: soft and other Other: gravid Skin General: no rashes or lesions noted Neuro General: patient alert, patient awake and patient oriented x3 Cognition: normal cognition Speech: speech normal Gait: normal gait Motor: muscle tone normal throughout Extrem General: normal to inspection and full ROM Psych Appearance: grossly normal Mental Status: mental status grossly normal Mood: congruent mood Affect: normal affect Speech and Movement: speech and movement normal Attitude: cooperative Thought Process: normal Thought Content: normal Judgment: judgment good Results POC Urinalysis 2 Dip (Clinic) Office Urine Glucose Negative Last Edit by Sushma Paredes on 05/22/25 09:32 Office Urine Protein Negative Last Edit by Sushma Paredes on 05/22/25 09:32 Coding Level of Care Code OB Routine Diagnoses Hx of hemorrhage, currently O09.299 Encounter for supervision of other normal in first trimester Z34.81 Normal : other normal Trimester: first trimester 21 weeks gestation of Z3A.21 Weeks of gestation: 21 weeks Amenorrhea N91.2 Assessment and Plan Assessment and Plan (1) Hx of hemorrhage, currently : Status: Acute Comment: Pt states passed large clots & had 2 shots (2) Supervision of normal : Status: Acute Qualifiers: Normal : other normal Trimester: first trimester Qualified Code(s): Z34.81 - Encounter for supervision of other normal , first trimester Comment: [id number], DAISY 09/29/25, Kem Byers, Bryan (3) : Status: Acute Qualifiers: Weeks of gestation: 21 weeks Qualified Code(s): Z3A.21 - 21 weeks gestation of Comment: declined NIPT & Carrier testing (4) Amenorrhea: Status: Acute Comment: +UPT Orders: Orders POC Urinalysis 2 Dip (Clinic) Today Plan Details Additional Comments: ACOG trimester education reviewed and updated. see problem list details for updated plan management information and see below for orders placed at this visit. GA appropriate handout given. 05/22/25 0941 <Electronically signed by Annette lopes CNM> Date _ Annette Adames CNM Cosigner Signature: Date (if applicable) CC: ~ [facility] Work Phone: Progress note Author Saba Santacruz [facility] Note Date/Time June 20, 2025 9: 49am [facility]'s [address], [address] [place] [address] OFFICE VISIT Date of Service: 06/20/25 MR#: [id number] Acct: [id number] Name: MERRY CAMPOS Rep #: [id number] : 1995 Provider: Dr. Luther Santacruz MD Age/Sex: 30/F Location: [facility] Status: Signed Intake Vital Signs 04/25/25 08:48 05/22/25 09:21 06/20/25 09:22 Height 5 ft 4 in 5 ft 4 in 5 ft 4 in Weight: 142 lb 1 oz BMI 24.3 BP 101/66 Intake Visit Reasons: 25wk ob Endodontics Dentist Required: No Is patient in pain?: No Feel stressed/tense/nervous/anxious/difficulty sleeping: not at all Allergies Environmental Allergies: Uncoded Allergy (Verified 06/20/25 09:27) Other Medications ?Medication ?Instructions ?Recorded ?Confirmed ?Type PNV 153-FA 400 mcg-om3 35 mg-dha tab PO 02/11/2506/20 History 25 mg-epa 5 mg-fish oil chew tablet fluticasone propionate 50 1 spray intranasal Q12H PRN 02/11/25 06/20/25 History mcg/actuation nasal spray,suspension (Flonase Allergy Relief) loratadine 10 mg tablet (Claritin) 10 mg PO QDAY 02/1106/20/25 History Last Menstrual Period: 12/23/24 Zika: Zika virus screening: Negative : No PFSH PFSH Medical History Seasonal allergies Surgical History Fred teeth extracted Family History Uncle Diabetes Maternal Grandfather Diabetes Maternal Dementia, Onset Age: 80 Paternal Social History adopted: No household members: spouse, family and children housing: house number of children: 2 current occupational status: unemployed current occupation: [employer] current occupational exposures/hazards: No pets and animals: Yes (Avoid litterbox) pets and animals: cat(s) and dog(s) history of recent travel: No sexually active: Yes Smoking Status: Never smoker alcohol intake: current alcohol intake frequency: a few times a month details: Not while substance use type: does not use well-balanced diet: daily or most days caffeine: Yes (Clean Energy in afternoon- 74mg caffeine. Education to stay under 200mg/day) Type: coffee Number of servings: 1 and other Number of servings: 1 eating out: 1-3 times/week during the past year weight has: remained stable what type of physical activity do you participate in: other details: farm chores frequency: daily duration: 45-60 minutes/day farhad/taoist: Yarsanism seatbelt use: always do you feel safe at home: Yes additional social history: - [place]- Sales History 3 Elective abortions Hx Para 2 Spontaneous abortions Hx # Term Pregnancies Ectopic pregnancies Hx # Pregnancies Multiple births # of living children 2 Past Pregnancies Del. Date Name GA/Weeks Outcome Route Bth Weight Gen Labor Lgth Anesthesia Del Locatn Provider FOB 02/20/21 Hair 40 live - full term 8# 6oz Male epidural [place] Claudy Thakkarchary 09/21/22 [place] 40 live - full term 8# 12oz Male epidural Maurilio Vito Thakkarchary Delivery Date: 09/21/22 Last Updated by: Sylvie Lofton elective IOL @ 40wks, large clots after delivery, had injection to stop bleeding, anemic HPI 25wk ob Details: MERRY CAMPOS is a 30 year old who presents for routine OB visit. OB Visit DAISY Calculator Estimated Delivery Date Method Current WG Current Estimate 09/29/25 LMP (Certain) 25w 4d Other Estimates 09/26/25 Ultrasound #1 26w 0d Expected Delivery Route/Plan Labor Preferences- CB/BF classes: [] labor support person: [] labor intervention preferences: [] pain management options preferred: [] cut cord/dad catch: [] : [] PP control planned: [] discussed possible routes of delivery and associated risks: [] special requests: [] Specific Issue/Plans Covid status: [] Flu vaccine: [] Tdap vaccine: [] Rhogam: [] LARC form signed: [] Problem list reviewed and updated with the most current plan of care details and appropriate orders placed. Relevant counseling for the gestational age provided. Continue routine care and follow up unless otherwise noted in visit notes/problem list details Initial Weight: 130 lb Date -?-?-?-?-?-?-?-?-?-?-?-?- EGA Weight BP Urine Prot -?-?-?-?-?-?-?-?-?-?-?-?- Glucose FHR FuHt Pres Dilation -?-?-?-?-?-?-?-?-?-?-?-?- Effaced St Visit Note 02/28/25 -?-?-?-?-?-?-?-?-?-?-?-?- 9w 4d 130 lb 4 oz (+4 oz) 107/67 -?-?-?-?-?-?-?-?-?-?-?-?- 173 -?-?-?-?-?-?-?-?-?-?-?-?- KW- CRL cons wit h dates. declines NIPT 03/28/25 -?-?-?-?-?-?-?-?-?-?-?-?- 13w 4d 134 lb 6 oz (+4 lb 6 oz) 115/80 Negative -?-?-?-?-?-?-?-?-?-?-?-?- Negative 150 -?-?-?-?-?-?-?-?-?-?-?-?- JV- c/o some denice alemans. happens mostly when hungry. encouraged to carry around snacks and try compression stockings. SHe tells me today about her 's history of testicular cancer. 04/25/25 -?-?-?-?-?-?-?-?-?-?-?-?- 17w 4d 138 lb 8 oz (+8 lb 8 oz) 109/70 Negative -?-?-?-?-?-?-?-?-?-?-?-?- Negative 156 -?-?-?-?-?-?-?-?-?-?-?-?- JV- no lof, vagi nal bleeding, or cramping. has anatomy scan scheduled. 05/22/25 -?-?-?-?-?-?-?-?-?-?-?-?- 21w 3d 142 lb 2 oz (+12 lb 2 oz) 103/58 Negative -?-?-?-?-?-?-?-?-?-?-?-?- Negative 160 -?-?-?-?-?-?-?-?-?-?-?-?- KW- no vb/crampi ng. good fm. reviewed US and patient does not want to get additional US due to rude tech at [facility] and lack of child care assistant. 06/20/25 -?-?-?-?-?-?-?-?-?-?-?-?- 25w 4d 142 lb 1 oz (+12 lb 1 oz) 101/66 Negative -?-?-?-?-?-?-?-?-?-?-?-?- Negative 150 -?-?-?-?-?-?-?-?-?-?-?-?- SM- no vb lof go od fm no regular ctx ACOG First Trimester First Trimester: Desire for , Alcohol, Tobacco Cessation, Illicit/Recreational Drug/Substance Use, Intimate Partner Violence, Barriers to care, Anticipated Course of Care, Use of Any medications, Sexual activity, Exercise, Dental Care, Sauna/Hot tub use, Seat Belt use, Childbirth classes/Hospital facilities, Travel, Indications for Ultrasound and Screening for Aneuploidy; Discussed Unstable Housing, Discussed Communication Barriers, Discussed Environmental/Work Hazards, Discussed Toxoplasmosis Precations and Discussed Second Trimester Second Trimester: Signs and Symptoms of Labor, Selecting a care provider, Reproductive Life Planning & Contreception, Care Planning, Depression/Anxiety and Intimate Partner Violence; Discussed Tobacco Cessation Third Trimester Third Trimester: Pain Management Plans, Labor support person(s), Immediate Larc, Signs and Symptoms of Preeclampsia, Feeding No , Education and Family Medical Leave or Disability Forms Results POC Urinalysis 2 Dip (Clinic) Office Urine Glucose Negative Last Edit by Tona Wright on 06/20/25 09:30 Office Urine Protein Negative Last Edit by Tona Wright on 06/20/25 09:30 Coding Level of Care Code OB Routine Diagnoses Hx of hemorrhage, currently O09.299 Encounter for supervision of other normal in first trimester Z34.81 Normal : other normal Trimester: first trimester 25 weeks gestation of Z3A.25 Weeks of gestation: 25 weeks Assessment and Plan Assessment and Plan (1) Hx of hemorrhage, currently : Status: Acute Comment: Pt states passed large clots & had 2 shots (2) Supervision of normal : Status: Acute Qualifiers: Normal : other normal Trimester: first trimester Qualified Code(s): Z34.81 - Encounter for supervision of other normal , first trimester Comment: [id number], DAISY 09/29/25, surprise Kem Byers, Bryan (3) : Status: Acute Qualifiers: Weeks of gestation: 25 weeks Qualified Code(s): Z3A.25 - 25 weeks gestation of Comment: declined NIPT & Carrier testing. anatomy done and ventricular septum not fully visualized patient declined follow up. Orders: Orders POC Urinalysis 2 Dip (Clinic) Today CBC W/Diff, Automated Today Z34.81 - Encounter for supervision of other normal , first trimester Glucose Challenge Gest 1H 50g Today Z13.1 - Encounter for screening for diabetes mellitus, Z34.81 - Encounter for supervision of other normal , first trimester HIV Today Z34.81 - Encounter for supervision of other normal , first trimester Syphilis Antibodies Today Z34.81 - Encounter for supervision of other normal , first trimester 06/20/25 0949 <Electronically signed by Saba wallace MD> Date _ Saba Sherwood Signature: Date (if applicable) CC: ~ [facility] Work Phone: Progress note Author Leeann Astudillo [facility] Note Date/Time August 01, 2025 9: 53am [facility] [address] [place] [address], [address] [place] [address] OFFICE VISIT Date of Service: 08/01/25 MR#: [id number] Acct: [id number] Name: EMRRY CAMPOS Rep #: [id number] : 1995 Provider: Dr. Diamante Starr DO Age/Sex: 30/F Location: [facility] [place] Status: Signed Intake Vital Signs 05/22/25 09:21 07/14/25 12:54 08/01/25 09:37 Height 5 ft 4 in 5 ft 4 in 5 ft 4 in Weight: 148 lb 9 oz BMI 25.4 BP 110/71 Intake Visit Reasons: 31 wk 4d ob Endodontics Dentist Required: No Is patient in pain?: No Allergies Environmental Allergies: Uncoded Allergy (Verified 08/01/25 09:39) Other Medications ?Medication ?Instructions ?Recorded ?Confirmed ?Type PNV 153-FA 400 mcg-om3 35 mg-dha tab PO 02/11/2508/01 History 25 mg-epa 5 mg-fish oil chew tablet fluticasone propionate 50 1 spray intranasal Q12H PRN 02/11/25 08/01/25 History mcg/actuation nasal spray,suspension (Flonase Allergy Relief) loratadine 10 mg tablet (Claritin) 10 mg PO QDAY 02/1108/01/25 History Last Menstrual Period: 12/23/24 Zika: Zika virus screening: Negative : No PFSH PFSH Medical History Seasonal allergies Surgical History Fred teeth extracted Family History Uncle Diabetes Maternal Grandfather Diabetes Maternal Dementia, Onset Age: 80 Paternal Social History adopted: No household members: spouse, family and children housing: house number of children: 2 current occupational status: unemployed current occupation: [employer] current occupational exposures/hazards: No pets and animals: Yes (Avoid litterbox) pets and animals: cat(s) and dog(s) history of recent travel: No sexually active: Yes Smoking Status: Never smoker alcohol intake: current alcohol intake frequency: a few times a month details: Not while substance use type: does not use well-balanced diet: daily or most days caffeine: Yes (Clean Energy in afternoon- 74mg caffeine. Education to stay under 200mg/day) Type: coffee Number of servings: 1 and other Number of servings: 1 eating out: 1-3 times/week during the past year weight has: remained stable what type of physical activity do you participate in: other details: farm chores frequency: daily duration: 45-60 minutes/day farhad/taoist: Yarsanism seatbelt use: always do you feel safe at home: Yes additional social history: - Bryan- Sales History 3 Elective abortions Hx Para 2 Spontaneous abortions Hx # Term Pregnancies Ectopic pregnancies Hx # Pregnancies Multiple births # of living children 2 Past Pregnancies Del. Date Name GA/Weeks Outcome Route Bth Weight Gen Labor Lgth Anesthesia Del Locatn Provider FOB 02/20/21 Hair 40 live - full term 8# 6oz Male epidural [place] Claudyesvin Manriquezry 09/21/22 Kem 40 live - full term 8# 12oz Male epidural Maurilio Marcos Adams Delivery Date: 09/21/22 Last Updated by: Sylvie Lofton elective IOL @ 40wks, large clots after delivery, had injection to stop bleeding, anemic HPI 31 wk 4d ob Details: MERRY CAMPOS is a 30 year old who presents for routine OB visit. OB Visit DAISY Calculator Estimated Delivery Date Method Current WG Current Estimate 09/29/25 LMP (Certain) 31w 4d Other Estimates 09/26/25 Ultrasound #1 32w 0d Expected Delivery Route/Plan Labor Preferences- CB/BF classes: no labor support person: Rex labor intervention preferences: [] pain management options preferred: epidural cut cord/dad catch: yes : yes PP control planned: discussed discussed possible routes of delivery and associated risks: [] special requests: [] Specific Issue/Plans Covid status: [] Flu vaccine: [] Tdap vaccine: declines Rhogam: NA LARC form signed: yes Problem list reviewed and updated with the most current plan of care details and appropriate orders placed. Relevant counseling for the gestational age provided. Continue routine care and follow up unless otherwise noted in visit notes/problem list details Initial Weight: 130 lb Date -?-?-?-?-?-?-?-?-?-?-?-?- EGA Weight BP Urine Prot -?-?-?-?-?-?-?-?-?-?-?-?- Glucose FHR FuHt Pres Dilation -?-?-?-?-?-?-?-?-?-?-?-?- Effaced St Visit Note 02/28/25 -?-?-?-?-?-?-?-?-?-?-?-?- 9w 4d 130 lb 4 oz (+4 oz) 107/67 -?-?-?-?-?-?-?-?-?-?-?-?- 173 -?-?-?-?-?-?-?-?-?-?-?-?- KW- CRL cons wit h dates. declines NIPT 03/28/25 -?-?-?-?-?-?-?-?-?-?-?-?- 13w 4d 134 lb 6 oz (+4 lb 6 oz) 115/80 Negative -?-?-?-?-?-?-?-?-?-?-?-?- Negative 150 -?-?-?-?-?-?-?-?-?-?-?-?- JV- c/o some denice cardenas spells. happens mostly when hungry. encouraged to carry around snacks and try compression stockings. SHe tells me today about her 's history of testicular cancer. 04/25/25 -?-?-?-?-?-?-?-?-?-?-?-?- 17w 4d 138 lb 8 oz (+8 lb 8 oz) 109/70 Negative -?-?-?-?-?-?-?-?-?-?-?-?- Negative 156 -?--?-?-?-?-?-?-?-?-?-?-?- JV- no lof, vagi nal bleeding, or cramping. has anatomy scan scheduled. 05/22/25 -?-?-?-?-?-?-?-?-?-?-?-?- 21w 3d 142 lb 2 oz (+12 lb 2 oz) 103/58 Negative -?-?-?-?-?-?-?-?-?-?-?-?- Negative 160 -?-?-?-?-?-?-?-?-?-?-?-?- KW- no vb/crampi ng. annita fm. reviewed US and patient does not want to get additional US due to rude tech at [facility] and lack of child care assistant. 06/20/25 -?-?-?-?-?-?-?-?-?-?-?-?- 25w 4d 142 lb 1 oz (+12 lb 1 oz) 101/66 Negative -?-?-?-?-?-?-?-?-?-?-?-?- Negative 150 -?-?-?-?-?-?-?-?-?-?-?-?- SM- no vb lof go od fm no regular ctx 07/14/25 -?-?-?-?-?-?-?-?-?-?-?-?- 29w 0d 150 lb 7 oz (+20 lb 7 oz) 111/71 Negative -?-?-?-?-?-?-?-?-?-?-?-?- Negative 148 29 -?-?-?-?-?--?-?-?-?-?-?-?- MH-No VB, LOF.Go od FM. Larc. 28 wk labs pending. Declines tdap. 08/01/25 -?-?-?-?-?-?-?-?-?-?-?-?- 31w 4d 148 lb 9 oz (+18 lb 9 oz) 110/71 -?-?-?-?-?-?-?-?-?-?-?-?- 150 32 -?-?-?-?-?-?-?-?-?-?-?-?- JV- no lof, vagi nal bleeding, or dec fm. + round ligament pain ACOG First Trimester First Trimester: Desire for , Alcohol, Tobacco Cessation, Illicit/Recreational Drug/Substance Use, Intimate Partner Violence, Barriers to care, Anticipated Course of Care, Use of Any medications, Sexual activity, Exercise, Dental Care, Sauna/Hot tub use, Seat Belt use, Childbirth classes/Hospital facilities, Travel, Indications for Ultrasound and Screening for Aneuploidy; Discussed Unstable Housing, Discussed Communication Barriers, Discussed Environmental/Work Hazards, Discussed Toxoplasmosis Precations and Discussed Second Trimester Second Trimester: Signs and Symptoms of Labor, Selecting a care provider, Reproductive Life Planning & Contreception, Care Planning, Depression/Anxiety and Intimate Partner Violence; Discussed Tobacco Cessation Third Trimester Third Trimester: Pain Management Plans, Labor support person(s), Immediate Larc, Circumcision preference, Signs and Symptoms of Preeclampsia, Feeding No , Education and Family Medical Leave or Disability Forms Coding Level of Care Code OB Routine Diagnoses 31 weeks gestation of Z3A.31 Weeks of gestation: 31 weeks Encounter for supervision of other normal in third trimester Z34.83 Normal : other normal Trimester: third trimester Hx of hemorrhage, currently O09.299 Anemia in O99.019 Assessment and Plan Assessment and Plan (1) : Status: Acute Qualifiers: Weeks of gestation: 31 weeks Qualified Code(s): Z3A.31 - 31 weeks gestation of Comment: declined NIPT & Carrier testing. anatomy done and ventricular septum not fully visualized patient declined follow up. (2) Supervision of normal : Status: Acute Qualifiers: Normal : other normal Trimester: third trimester Qualified Code(s): Z34.83 - Encounter for supervision of other normal , third trimester Comment: [id number], DAISY 09/29/25, surprise Kem Byers, Bryan (3) Hx of hemorrhage, currently : Status: Acute Comment: Pt states passed large clots & had 2 shots (4) Anemia in : Status: Acute Comment: add Fe Orders: Orders POC Urinalysis 2 Dip (Clinic) Today 08/01/25 0953 <Electronically signed by Leeann Thomas DO> Date _ Leeann Starr DO Cosigner Signature: Date (if applicable) CC: ~ [facility] Work Phone: Progress note Author Saba Santacruz [facility] Note Date/Time August 11, 2025 9 :43am [facility] [address] [place] [address], [address] [place] [address] OFFICE VISIT Date of Service: 08/11/25 MR#: [id number] Acct: [id number] Name: MERRY CAMPOS Rep #: [id number] : 1995 Provider: Dr. Luther Santacruz MD Age/Sex: 30/F Location: [facility] [place] Status: Signed Intake Vital Signs 05/22/25 09:21 08/01/25 09:37 08/11/25 09:26 Height 5 ft 4 in 5 ft 4 in 5 ft 4 in Weight: 151 lb 5 oz BMI 25.9 BP 105/69 Intake Visit Reasons: 33 wk ob Endodontics Dentist Required: No Is patient in pain?: No Allergies Environmental Allergies: Uncoded Allergy (Verified 08/11/25 09:27) Other Medications ?Medication ?Instructions ?Recorded ?Confirmed ?Type PNV 153-FA 400 mcg-om3 35 mg-dha tab PO 02/11/2508/11 History 25 mg-epa 5 mg-fish oil chew tablet fluticasone propionate 50 1 spray intranasal Q12H PRN 02/11/25 08/11/25 History mcg/actuation nasal spray,suspension (Flonase Allergy Relief) loratadine 10 mg tablet (Claritin) 10 mg PO QDAY 02/1108/11/25 History Last Menstrual Period: 12/23/24 Zika: Zika virus screening: Negative : No PFSH PFSH Medical History Seasonal allergies Surgical History Fred teeth extracted Family History Uncle Diabetes Maternal Grandfather Diabetes Maternal Dementia, Onset Age: 80 Paternal Social History adopted: No household members: spouse, family and children housing: house number of children: 2 current occupational status: unemployed current occupation: [employer] current occupational exposures/hazards: No pets and animals: Yes (Avoid litterbox) pets and animals: cat(s) and dog(s) history of recent travel: No sexually active: Yes Smoking Status: Never smoker alcohol intake: current alcohol intake frequency: a few times a month details: Not while substance use type: does not use well-balanced diet: daily or most days caffeine: Yes (Clean Energy in afternoon- 74mg caffeine. Education to stay under 200mg/day) Type: coffee Number of servings: 1 and other Number of servings: 1 eating out: 1-3 times/week during the past year weight has: remained stable what type of physical activity do you participate in: other details: farm chores frequency: daily duration: 45-60 minutes/day farhad/taoist: Yarsanism seatbelt use: always do you feel safe at home: Yes additional social history: - Bryan- Sales History 3 Elective abortions Hx Para 2 Spontaneous abortions Hx # Term Pregnancies Ectopic pregnancies Hx # Pregnancies Multiple births # of living children 2 Past Pregnancies Del. Date Name GA/Weeks Outcome Route Bth Weight Gen Labor Lgth Anesthesia Del Locatn Provider FOB 02/20/21 Hair 40 live - full term 8# 6oz Male epidural Saira Adams 09/21/22 [place] 40 live - full term 8# 12oz Male epidural Maurilio Vito Adams Delivery Date: 09/21/22 Last Updated by: Sylvie Lofton elective IOL @ 40wks, large clots after delivery, had injection to stop bleeding, anemic HPI 33 wk ob Details: MERRY CAMPOS is a 30 year old who presents for routine OB visit. OB Visit DAISY Calculator Estimated Delivery Date Method Current WG Current Estimate 09/29/25 LMP (Certain) 33w 0d Other Estimates 09/26/25 Ultrasound #1 33w 3d Expected Delivery Route/Plan Labor Preferences- CB/BF classes: no labor support person: Rex labor intervention preferences: [] pain management options preferred: epidural cut cord/dad catch: yes : yes PP control planned: discussed discussed possible routes of delivery and associated risks: [] special requests: [] Specific Issue/Plans Covid status: [] Flu vaccine: [] Tdap vaccine: declines Rhogam: NA LARC form signed: yes Problem list reviewed and updated with the most current plan of care details and appropriate orders placed. Relevant counseling for the gestational age provided. Continue routine care and follow up unless otherwise noted in visit notes/problem list details Initial Weight: 130 lb Date -?-?-?-?-?-?-?-?-?-?-?-?- EGA Weight BP Urine Prot -?-?-?-?-?-?-?-?-?-?-?-?- Glucose FHR FuHt Pres Dilation -?-?-?-?-?-?-?-?-?-?-?-?- Effaced St Visit Note 02/28/25 -?-?-?-?-?-?-?-?-?-?-?-?- 9w 4d 130 lb 4 oz (+4 oz) 107/67 -?-?--?-?-?-?-?-?-?-?-?-?- 173 -?-?-?-?-?-?-?-?-?-?-?-?- KW- CRL cons wit h dates. declines NIPT 03/28/25 -?-?-?-?-?-?-?-?-?-?-?-?- 13w 4d 134 lb 6 oz (+4 lb 6 oz) 115/80 Negative -?-?-?-?-?-?-?-?-?-?-?-?- Negative 150 -?-?-?-?-?-?-?-?-?-?-?-?- JV- c/o some denice sepulveda. happens mostly when hungry. encouraged to carry around snacks and try compression stockings. SHe tells me today about her 's history of testicular cancer. 04/25/25 -?-?-?-?-?-?-?--?-?-?-?-?- 17w 4d 138 lb 8 oz (+8 lb 8 oz) 109/70 Negative -?-?-?-?-?-?-?-?-?-?-?-?- Negative 156 -?-?-?-?-?-?-?-?-?-?-?-?- JV- no lof, vagi nal bleeding, or cramping. has anatomy scan scheduled. 05/22/25 -?-?-?-?-?-?-?-?-?-?-?-?- 21w 3d 142 lb 2 oz (+12 lb 2 oz) 103/58 Negative -?-?-?-?-?-?-?-?-?-?-?-?- Negative 160 -?-?-?-?-?-?-?-?-?-?-?-?- KW- no vb/crampi ng. good fm. reviewed US and patient does not want to get additional US due to rude tech at [facility] and lack of child care assistant. 06/20/25 -?-?-?-?-?-?-?-?-?-?-?-?- 25w 4d 142 lb 1 oz (+12 lb 1 oz) 101/66 Negative -?-?-?-?-?-?-?-?-?-?-?-?- Negative 150 -?-?-?-?-?-?-?-?-?-?-?-?- SM- no vb lof go od fm no regular ctx 07/14/25 -?-?-?-?-?-?-?-?-?-?-?-?- 29w 0d 150 lb 7 oz (+20 lb 7 oz) 111/71 Negative -?-?-?-?-?-?-?-?-?-?-?-?- Negative 148 29 -?-?-?-?-?-?-?-?-?-?-?-?- MH-No VB, LOF.Go od FM. Larc. 28 wk labs pending. Declines tdap. 08/01/25 -?-?-?-?-?-?-?-?-?-?-?-?- 31w 4d 148 lb 9 oz (+18 lb 9 oz) 110/71 -?-?-?-?-?-?-?-?-?-?-?-?- 150 32 -?-?-?-?-?-?-?-?-?-?-?-?- JV- no lof, vagi nal bleeding, or dec fm. + round ligament pain 08/11/25 -?-?--?-?-?-?-?-?-?-?-?-?- 33w 0d 151 lb 5 oz (+21 lb 5 oz) 105/69 Negative -?-?-?-?-?-?-?-?-?-?-?-?- Negative 145 34 -?-?-?-?-?-?-?-?-?-?-?--?- SM- no vb lof go od fm no regular ctx repeat cbc today ACOG First Trimester First Trimester: Desire for , Alcohol, Tobacco Cessation, Illicit/Recreational Drug/Substance Use, Intimate Partner Violence, Barriers to care, Anticipated Course of Care, Use of Any medications, Sexual activity, Exercise, Dental Care, Sauna/Hot tub use, Seat Belt use, Childbirth classes/Hospital facilities, Travel, Indications for Ultrasound and Screening for Aneuploidy; Discussed Unstable Housing, Discussed Communication Barriers, Discussed Environmental/Work Hazards, Discussed Toxoplasmosis Precations and Discussed Second Trimester Second Trimester: Signs and Symptoms of Labor, Selecting a care provider, Reproductive Life Planning & Contreception, Care Planning, Depression/Anxiety and Intimate Partner Violence; Discussed Tobacco Cessation Third Trimester Third Trimester: Pain Management Plans, Labor support person(s), Immediate Larc, Circumcision preference, Signs and Symptoms of Preeclampsia, Feeding No , Education and Family Medical Leave or Disability Forms Results POC Urinalysis 2 Dip (Clinic) Office Urine Glucose Negative Last Edit by Tona Wright on 08/11/25 09:30 Office Urine Protein Negative Last Edit by Tona Wright on 08/11/25 09:30 Coding Level of Care Code OB Routine Diagnoses Anemia in O99.019 Hx of hemorrhage, currently O09.299 Encounter for supervision of other normal in third trimester Z34.83 Normal : other normal Trimester: third trimester 33 weeks gestation of Z3A.33 Weeks of gestation: 33 weeks Assessment and Plan Assessment and Plan (1) Anemia in : Status: Acute Comment: add Fe (2) Hx of hemorrhage, currently : Status: Acute Comment: Pt states passed large clots & had 2 shots (3) Supervision of normal : Status: Acute Qualifiers: Normal : other normal Trimester: third trimester Qualified Code(s): Z34.83 - Encounter for supervision of other normal , third trimester Comment: [id number], DAISY 09/29/25, surprise Kem Byers, Bryan (4) : Status: Acute Qualifiers: Weeks of gestation: 33 weeks Qualified Code(s): Z3A.33 - 33 weeks gestation of Comment: declined NIPT & Carrier testing. anatomy done and ventricular septum not fully visualized patient declined follow up. Orders: Orders POC Urinalysis 2 Dip (Clinic) Today 08/11/25 0943 <Electronically signed by Saba wallace MD> Date _ Saba Santacruz MD [facility] Signature: Date (if applicable) CC: ~ [facility] Work Phone: Reason for referral (narrative)No reason for referral information availableWBarney [facility] Work Phone: Summary Purpose Family History No Family History Records Found Relationship Condition Age at Onset Recorded Date/T erik uncle Diabetes mellitus Unknown grandfather Diabetes mellitus Unknown Dementia 80 Advance Directives No Advanced Directives Records FoundNo Advanced Directives Records FoundNo Advanced Directives Records FoundNo Advanced Directives Records Found Chief Complaint and Reason for Visit Chief Complaint Admit Date PNOB nurse visit February 11, 2025 8:4 9am NEW OB LMP 12/23 DAISY 09/29February 28, 2025 2 :48pm Reason for Visit Admit Date Amenorrhea February 11, 2025 8:4 9am Supervision of normal February 112024 8:49am Amenorrhea February 28, 2025 2:48pm Hx of hemorrhage, currently p regnant February 28, 2025 2:48pm February 28, 2025 2:48pm Supervision of normal February 28, 2025 2:48pm Chief Complaint Admit Date PNOB nurse visit February 11, 2025 8:4 9am NEW OB LMP 12/23 DAISY 09/29February 28, 2025 2 :48pm 13wk OB March 28, 2025 2:50p m Reason for Visit Admit Date Amenorrhea February 11, 2025 8:4 9am Supervision of normal February 112024 8:49am Amenorrhea February 28, 2025 2:48pm Hx of hemorrhage, currently p regnant February 28, 2025 2:48pm February 28, 2025 2:48pm Supervision of normal February 28, 2025 2:48pm Amenorrhea March 28, 2025 2:50p m Hx of hemorrhage, currently p regnant March 28, 2025 2:50pm March 28, 2025 2:50p m Supervision of normal February 2:50pm Chief Complaint Admit Date PNOB nurse visit February 11, 2025 8:4 9am NEW OB LMP 12/23 DAISY 09/29February 28, 2025 2 :48pm 13wk OB March 28, 2025 2:50p m 17 wk ob April 25, 2025 8:46 am Reason for Visit Admit Date Amenorrhea February 11, 2025 8:4 9am Supervision of normal February 112024 8:49am Amenorrhea February 28, 2025 2:48pm Hx of hemorrhage, currently p regnant February 28, 2025 2:48pm February 28, 2025 2:48pm Supervision of normal February 28, 2025 2:48pm Amenorrhea March 28, 2025 2:50p m Hx of hemorrhage, currently p regnant March 28, 2025 2:50pm March 28, 2025 2:50p m Supervision of normal February 2:50pm Amenorrhea April 25, 2025 8:46 am Hx of hemorrhage, currently p regnant April 25, 2025 8:46am April 25, 2025 8:46 am Supervision of normal March 8:46am Chief Complaint Admit Date PNOB nurse visit February 11, 2025 8:4 9am NEW OB LMP 12/23 DAISY 09/29February 28, 2025 2 :48pm 13wk OB March 28, 2025 2:50p m 17 wk ob April 25, 2025 8:46 am 21wk ob May 22, 2025 9:18 am Reason for Visit Admit Date Amenorrhea February 11, 2025 8:4 9am Supervision of normal February 112024 8:49am Amenorrhea February 28, 2025 2:48pm Hx of hemorrhage, currently p regnant February 28, 2025 2:48pm February 28, 2025 2:48pm Supervision of normal February 28, 2025 2:48pm Amenorrhea March 28, 2025 2:50p m Hx of hemorrhage, currently p regnant March 28, 2025 2:50pm March 28, 2025 2:50p m Supervision of normal February 2:50pm Amenorrhea April 25, 2025 8:46 am Hx of hemorrhage, currently p regnant April 25, 2025 8:46am April 25, 2025 8:46 am Supervision of normal March 8:46am Amenorrhea May 22, 2025 9:18 am Hx of hemorrhage, currently p regnant May 22, 2025 9:18am May 22, 2025 9:18 am Supervision of normal April 9:18am Chief Complaint Admit Date NEW OB LMP 12/23 DAISY 09/29February 28, 2025 2 :48pm 13wk OB March 28, 2025 2:50p m 17 wk ob April 25, 2025 8:46 am 21wk ob May 22, 2025 9:18 am 25wk ob June 20, 2025 9: 17am Reason for Visit Admit Date Hx of hemorrhage, currently p regnant February 28, 2025 2:48pm February 28, 2025 2:48pm Supervision of normal February 28, 2025 2:48pm Amenorrhea February 28, 2025 2:48pm Hx of hemorrhage, currently p regnant March 28, 2025 2:50pm March 28, 2025 2:50p m Supervision of normal February 2:50pm Amenorrhea March 28, 2025 2:50p m Hx of hemorrhage, currently p regnant April 25, 2025 8:46am April 25, 2025 8:46 am Supervision of normal March 8:46am Amenorrhea April 25, 2025 8:46 am Hx of hemorrhage, currently p regnant May 22, 2025 9:18am May 22, 2025 9:18 am Supervision of normal April 9:18am Amenorrhea May 22, 2025 9:18 am Hx of hemorrhage, currently p regnant June 20, 2025 9:17am June 20, 2025 9: 17am Supervision of normal May [id number] 9:17am Chief Complaint Admit Date 13wk OB March 28, 2025 2:50p m 17 wk ob April 25, 2025 8:46 am wk ob May 22, 2025 9:18 am 25wk ob June 20, 2025 9: 17am 29 wk ob glucose July 14, 2025 12:42pm Reason for Visit Admit Date Hx of hemorrhage, currently p regnant March 28, 2025 2:50pm March 28, 2025 2:50p m Supervision of normal February 2:50pm Amenorrhea March 28, 2025 2:50p m Hx of hemorrhage, currently p regnant April 25, 2025 8:46am April 25, 2025 8:46 am Supervision of normal March 8:46am Amenorrhea April 25, 2025 8:46 am Hx of hemorrhage, currently p regnant May 22, 2025 9:18am May 22, 2025 9:18 am Supervision of normal April 9:18am Amenorrhea May 22, 2025 9:18 am Hx of hemorrhage, currently p regnant June 20, 2025 9:17am June 20, 2025 9: 17am Supervision of normal May [id number] 9:17am Hx of hemorrhage, currently p regtabithat July 14, 2025 12:42pm July 14, 2025 12:42pm Supervision of normal [facility] 2024 12:42pm Chief Complaint Admit Date 17 wk ob April 25, 2025 8:46 am 21wk ob May 22, 2025 9:18 am 25wk ob June 20, 2025 9: 17am 29 wk ob glucose July 14, 2025 12:42pm Reason for Visit Admit Date Hx of hemorrhage, currently p regnant April 25, 2025 8:46am April 25, 2025 8:46 am Supervision of normal March 8:46am Amenorrhea April 25, 2025 8:46 am Hx of hemorrhage, currently p regnant May 22, 2025 9:18am May 22, 2025 9:18 am Supervision of normal April 9:18am Amenorrhea May 22, 2025 9:18 am Hx of hemorrhage, currently p regnant June 20, 2025 9:17am June 20, 2025 9: 17am Supervision of normal May [id number] 9:17am Hx of hemorrhage, currently p regnant July 14, 2025 12:42pm July 14, 2025 12:42pm Supervision of normal [facility] 2024 12:42pm Chief Complaint Admit Date 17 wk ob April 25, 2025 8:46 am 21wk ob May 22, 2025 9:18 am 25wk ob June 20, 2025 9: 17am 29 wk ob glucose July 14, 2025 12:42pm 31 wk 4d ob August 01, 2025 9: 33am Reason for Visit Admit Date Hx of hemorrhage, currently p regnant April 25, 2025 8:46am April 25, 2025 8:46 am Supervision of normal March 8:46am Amenorrhea April 25, 2025 8:46 am Hx of hemorrhage, currently p regnant May 22, 2025 9:18am May 22, 2025 9:18 am Supervision of normal April 9:18am Amenorrhea May 22, 2025 9:18 am Hx of hemorrhage, currently p regnant June 20, 2025 9:17am June 20, 2025 9: 17am Supervision of normal May [id number] 9:17am Hx of hemorrhage, currently p regtabithat July 14, 2025 12:42pm July 14, 2025 12:42pm Supervision of normal [facility] r 2024 12:42pm Anemia in August 01, 2025 9: 33am Hx of hemorrhage, currently p regtabithat August 01, 2025 9:33am August 01, 2025 9: 33am Supervision of normal August 01, 2025 9:33am Chief Complaint Admit Date wk ob May 22, 2025 9:18 am 25wk ob June 20, 2025 9: 17am 29 wk ob glucose July 14, 2025 12:42pm 31 wk 4d ob August 01, 2025 9: 33am 33 wk ob August 11, 2025 9 :22am 35w ob *PT LEAVING 08/31-09/09August [id number] 9:11am Reason for Visit Admit Date Hx of hemorrhage, currently p regtabithat May 22, 2025 9:18am May 22, 2025 9:18 am Supervision of normal Lata 24t h, 2025 9:18am Amenorrhea May 22, 2025 9:18 am Hx of hemorrhage, currently p regnant June 20, 2025 9:17am June 20, 2025 9: 17am Supervision of normal May [id number] 9:17am Hx of hemorrhage, currently p regnant July 14, 2025 12:42pm July 14, 2025 12:42pm Supervision of normal Septembe 2024 12:42pm Anemia in August 01, 2025 9: 33am Hx of hemorrhage, currently p regnant August 01, 2025 9:33am August 01, 2025 9: 33am Supervision of normal August 01, 2025 9:33am Anemia in August 11, 2025 9 :22am Hx of hemorrhage, currently p regnant August 11, 2025 9:22am August 11, 2025 9 :22am Supervision of normal August 11, 2025 9:22am Anemia in August 25, 2025 9 :11am Hx of hemorrhage, currently p regnant August 25, 2025 9:11am August 25, 2025 9 :11am Supervision of normal August 25, 2025 9:11am Additional Source Comments INFORMATION SOURCE (unrecogn ized section and content) DATE CREATED AUTHOR 02/27/2021 [facility] ([place]) DATE CREATED AUTHOR AUTHOR'S ORGANIZ ATION 09/14/2021 [facility] DATE CREATED AUTHOR AUTHOR'S ORGANIZ ATION 05/08/2025 [facility] DATE CREATED AUTHOR AUTHOR'S ORGANIZ ATION 09/09/2025 [facility] Care Teams (unrecognized sec tion and content) Team Status: Inactive Member Role Status Dates Tona Guzman NP, [facility] Attending Provider Active Start: February 11, 2025 End: February 11, 2025 Team Status: Inactive Member Role Status Dates Annette Adames CNM Attending Provider Active S tart: February 28, 2025 End: February 28, 2025 Team Status: Inactive Member Role Status Dates Annette Adames CNM Attending Provider Active S tart: February 28, 2025 End: February 28, 2025 Annette Adames CNM Referring Provider Active S tart: February 28, 2025 End: February 28, 2025 Team Status: Inactive Member Role Status Dates Dr. Leeann Starr DO Attending Provider Activ e Start: March 28, 2025 End: March 28, 2025 Team Status: Inactive Member Role Status Dates Dr. Leeann Starr DO Attending Provider Activ e Start: April 25, 2025 End: April 25, 2025 Team Status: Inactive Member Role/Relationship Status Dates Tona Guzman STAFF [employer] OFFICER, STAFF [employer]FORMATION [employer] OFFICER-C Attending Provider Active Start: February 11, 2025 End: February 11, 2025 Team Status: Inactive Member Role/Relationship Status Dates Annette Adames CNM Attending Provider Active S tart: February 28, 2025 End: February 28, 2025 Team Status: Inactive Member Role/Relationship Status Dates Annette Adames CNM Attending Provider Active S tart: February 28, 2025 End: February 28, 2025 Annette Adames CNM Referring Provider Active S tart: February 28, 2025 End: February 28, 2025 Team Status: Inactive Member Role/Relationship Status Dates Dr. Leeann Starr DO Attending Provider Activ e Start: March 28, 2025 End: March 28, 2025 Team Status: Inactive Member Role/Relationship Status Dates Dr. Leeann Starr DO Attending Provider Activ e Start: April 25, 2025 End: April 25, 2025 Team Status: Inactive Member Role/Relationship Status Dates Annette Adames CNM Attending Provider Active S tart: May 22, 2025 End: May 22, 2025 Team Status: Inactive Member Role/Relationship Status Dates Annette Adames CNM Attending Provider Active S tart: February 28, 2025 End: February 28, 2025 Team Status: Inactive Member Role/Relationship Status Dates Annette Adames CNM Attending Provider Active S tart: February 28, 2025 End: February 28, 2025 Annette Adames CNM Referring Provider Active S tart: February 28, 2025 End: February 28, 2025 Team Status: Inactive Member Role/Relationship Status Dates Dr. Leeann Starr DO Attending Provider Activ e Start: March 28, 2025 End: March 28, 2025 Team Status: Inactive Member Role/Relationship Status Dates Dr. Leeann Starr DO Attending Provider Activ e Start: April 25, 2025 End: April 25, 2025 Team Status: Inactive Member Role/Relationship Status Dates Annette Adames CNM Attending Provider Active S tart: May 22, 2025 End: May 22, 2025 Team Status: Inactive Member Role/Relationship Status Dates Dr. Saba Santacruz MD Attending Provider Active Start: June 20, 2025 End: June 20, 2025 Team Status: Inactive Member Role/Relationship Status Dates Dr. Leeann Starr DO Attending Provider Activ e Start: March 28, 2025 End: March 28, 2025 Team Status: Inactive Member Role/Relationship Status Dates Dr. Leeann Starr DO Attending Provider Activ e Start: April 25, 2025 End: April 25, 2025 Team Status: Inactive Member Role/Relationship Status Dates Annette dAames CNM Attending Provider Active S tart: May 22, 2025 End: May 22, 2025 Team Status: Inactive Member Role/Relationship Status Dates Dr. Saba Santacurz MD Attending Provider Active Start: June 20, 2025 End: June 20, 2025 Team Status: Inactive Member Role/Relationship Status Dates Tona Guzman NP, STAFF [employer] OFFICER-C Attending Provider Active Start: July 14, 2025 End: July 14, 2025 Team Status: Active Member Role/Relationship Status Dates Dr. Saba Santacruz MD Attending Provider Active Start: July 14, 2025 Dr. Saba Santacruz MD Referring Provider Active Start: July 14, 2025 Team Status: Inactive Member Role/Relationship Status Dates Dr. Leeann Starr DO Attending physician Acti ve Start: April 25, 2025 End: April 25, 2025 Team Status: Inactive Member Role/Relationship Status Dates Annette Adames CNM Attending physician Active Start: May 22, 2025 End: May 22, 2025 Team Status: Inactive Member Role/Relationship Status Dates Dr. Saba Santacruz MD Attending physician Active Start: June 20, 2025 End: June 20, 2025 Team Status: Inactive Member Role/Relationship Status Dates Tona Guzman NP, STAFF [employer] OFFICER-C Attending physician Active Start: July 14, 2025 End: July 14, 2025 Team Status: Inactive Member Role/Relationship Status Dates Dr. Saba Santacruz MD Attending physician Active Start: July 14, 2025 End: July 14, 2025 Dr. Saba Santacruz MD Referring Provider Active Start: July 14, 2025 End: July 14, 2025 Team Status: Inactive Member Role/Relationship Status Dates Dr. Leeann Starr DO Attending physician Acti ve Start: August 01, 2025 End: August 01, 2025 Team Status: Inactive Member Role/Relationship Status Dates Annette Adames CNM Attending physician Active Start: May 22, 2025 End: May 22, 2025 Team Status: Inactive Member Role/Relationship Status Dates Dr. Saba Santacruz MD Attending physician Active Start: June 20, 2025 End: June 20, 2025 Team Status: Inactive Member Role/Relationship Status Dates Tona Guzman NP, STAFF [employer] OFFICER-C Attending physician Active Start: July 14, 2025 End: July 14, 2025 Team Status: Inactive Member Role/Relationship Status Dates Dr. Saba Santacruz MD Attending physician Active Start: July 14, 2025 End: July 14, 2025 Dr. Saba Santacruz MD Referring Provider Active Start: July 14, 2025 End: July 14, 2025 Team Status: Inactive Member Role/Relationship Status Dates Dr. Leeann Starr DO Attending physician Acti ve Start: August 01, 2025 End: August 01, 2025 Team Status: Inactive Member Role/Relationship Status Dates Dr. Saba Santacruz MD Attending physician Active Start: August 11, 2025 End: August 11, 2025 Team Status: Active Member Role/Relationship Status Dates Dr. Saba Santacruz MD Attending physician Active Start: August 11, 2025 Team Status: Inactive Member Role/Relationship Status Dates Annette Adames CNM Attending physician Active Start: August 25, 2025 End: August 25, 2025 Goals (unrecognized section and content) Type Care Experience svdLabor Preferences -CB/BF classes: nolabor support person: Callie intervention preferences: []pain management options preferred: epiduralcut cord/dad catch: yesbreastfeeding: yesPP control planned: discusseddiscussed possible routes of delivery and associated risks: []special requests: [] FOR RECORDS PERTAINING TO PATIENTS WHO ARE OR HAVE BEEN ENROLLED IN A CHEMICAL DEPENDENCY/SUBSTANCEABUSE PROGRAM, SOME INFORMATION MAY BE OMITTED. This clinical summary was aggregated from multiple sources. Caution should be exercised in using it in the provision of clinical care. This summary normalizes information from multiple sources, and as a consequence, information in this document may materially change the coding, format and clinical context of patient data. In addition, data may be omitted in some cases. CLINICAL DECISIONS SHOULD BE BASED ON THE PRIMARY CLINICAL RECORDS. [facility]. provides no warranty or guarantee of the accuracy or completeness of information in this document.
[2025-09-29 01:08] LABS: Hematocrit 33.5 % (37-47); Hemoglobin 11.5 g/dL (12.0-15.0); Immature Granulocytes Count 0.130 X10^3/uL (0.0-0.0); Mean Corp Hgb Conc 34.3 g/dL (32-36); Mean Corpuscular Volume 98.0 fL (81-99); Mean Platelet Vol. 9.8 fl (6.2-12.0); NRBC Flagged by Analyzer 0 % (0-5); Platelet Count 190 K/mm3 (150-450); RBC Distribution Width CV 13.5 % (11.6-14.6); RBC Distribution Width SD 48.5 fl (35.1-43.9); Red Blood Count 3.42 M/mm3 (4.2-5.4); White Blood Count 18.2 K/mm3 (4.4-11.0)
--- NOTE | 2025-09-29 01:12 | HP.PCM.OB_ITS ---
HPI - General General Date of Admission: 09/28/25 HPI Narrative MERRY CAMPOS, is a 30 F who presents with contractions off & on since noon on 09/28, becoming slightly stronger, unable to rest, Was 5cm dilated in office on 09/23/25. Desires AROM/augmentation of labor. Maternal Data Information DAISY Calculator Estimated Delivery Date Method Current WG Current Estimate 09/29/25 LMP (Certain) 40w 0d Other Estimates 09/26/25 Ultrasound #1 40w 3d PFSH PFSH Medical History Seasonal allergies Home Medications ?Medication ?Instructions ?Recorded ?Last Taken ?Type PNV 153-FA 400 mcg-om3 35 mg-dha tab PO DAILY 02/11/25 09/28/25 History 25 mg-epa 5 mg-fish oil chew tablet magnesium 200 mg tablet 300 mg PO DAILY 09/29/25 History Allergy/AdvReac Type Severity Reaction Status Date / Time Environmental Allergies: Allergy Other Verified 09/29/25 00:23 Uncoded Family History Uncle Diabetes Maternal Grandfather Diabetes Maternal Dementia, Onset Age: 80 Paternal Surgical History [place] teeth extracted Social History adopted: No household members: spouse, family and children housing: house number of children: 2 current occupational status: unemployed current occupation: [employer] current occupational exposures/hazards: No pets and animals: Yes (Avoid litterbox) pets and animals: cat(s) and dog(s) history of recent travel: No sexually active: Yes Smoking Status: Never smoker alcohol intake: current alcohol intake frequency: a few times a month details: Not while substance use type: does not use well-balanced diet: daily or most days caffeine: Yes ([employer] in afternoon- 74mg caffeine. Education to stay under 200mg/day) Type: coffee Number of servings: 1 and other Number of servings: 1 eating out: 1-3 times/week during the past year weight has: remained stable what type of physical activity do you participate in: other details: farm chores frequency: daily duration: 45-60 minutes/day farhad/buddhism: Restorationist seatbelt use: always do you feel safe at home: Yes additional social history: - Bruce Martinez History 2 3 Elective abortions Hx Para 2 Spontaneous abortions Hx # Term Pregnancies Ectopic pregnancies Hx # Pregnancies Multiple births # of living children 2 Past Pregnancies Del. Date Name GA/Weeks Outcome Route Bth Weight Infant Gen Labor Lgth Anesthesia Del Locatn Provider FOB 02/20/21 Hair 40 live - full term 8# 6oz Male epidural Saira Adams 09/21/22 Kiptin 40 live - full term 8# 12oz Male epidural Maurilio Vtio Adams Delivery Date: 09/21/22 Last Updated by: Sylvie Lofton elective IOL @ 40wks, large clots after delivery, had injection to stop bleeding, anemic Visit Details Expected Delivery Route/Plan Labor Preferences- CB/BF classes: no labor support person: Rex labor intervention preferences: [] pain management options preferred: epidural cut cord/dad catch: yes : yes PP control planned: discussed discussed possible routes of delivery and associated risks: [] special requests: [] Plans Covid status: [] Flu vaccine: [] Tdap vaccine: declines Rhogam: NA LARC form signed: yes Problem list reviewed and updated with the most current plan of care details and appropriate orders placed. Relevant counseling for the gestational age provided. Continue routine care and follow up unless otherwise noted in visit notes/problem list details OB Flowsheet Initial Weight: 130 lb Date -?-?-?-?-?-?-?-?-?-?-?-?- EGA Weight BP Urine Prot -?-?-?-?-?-?-?-?-?-?-?-?- Glucose FHR FuHt Pres Dilation -?-?-?-?-?-?-?-?-?-?-?-?- Effaced St Visit Note 02/28/25 -?-?-?-?-?-?-?-?-?-?-?-?- 9w 4d 130 lb 4 oz (+4 oz) 107/67 -?-?-?-?-?-?-?-?-?-?-?-?- 173 -?-?-?-?-?-?-?-?-?-?-?-?- KW- CRL cons wit h dates. declines NIPT 03/28/25 -?-?-?-?-?-?-?--?-?-?-?-?- 13w 4d 134 lb 6 oz (+4 lb 6 oz) 115/80 Negative -?-?-?-?-?-?-?-?-?-?-?-?- Negative 150 -?-?-?-?-?-?-?-?-?-?-?-?- JV- c/o some denice sepulveda. happens mostly when hungry. encouraged to carry around snacks and try compression stockings. SHe tells me today about her 's history of testicular cancer. 04/25/25 -?-?-?-?-?-?-?-?-?-?-?-?- 17w 4d 138 lb 8 oz (+8 lb 8 oz) 109/70 Negative -?-?-?-?-?-?-?-?-?-?-?-?- Negative 156 -?-?-?-?-?-?-?-?-?-?-?-?- JV- no lof, vagi nal bleeding, or cramping. has anatomy scan scheduled. 05/22/25 -?-?-?-?-?-?-?-?-?-?-?-?- 21w 3d 142 lb 2 oz (+12 lb 2 oz) 103/58 Negative -?-?-?-?-?-?-?-?-?-?-?-?- Negative 160 -?-?-?-?-?-?-?-?-?-?-?-?- KW- no vb/crampi ng. annita fm. reviewed US and patient does not want to get additional US due to rude tech at [facility] and lack of child welfare consultant. 06/20/25 -?-?-?-?-?-?-?-?-?-?-?-?- 25w 4d 142 lb 1 oz (+12 lb 1 oz) 101/66 Negative -?-?-?-?-?-?-?-?-?-?-?-?- Negative 150 -?-?-?-?-?-?-?-?-?-?-?-?- SM- no vb lof go od fm no regular ctx 07/14/25 -?-?-?-?-?-?-?-?-?-?-?-?- 29w 0d 150 lb 7 oz (+20 lb 7 oz) 111/71 Negative -?-?-?-?-?-?-?-?-?-?-?-?- Negative 148 29 -?-?-?-?-?-?-?-?-?-?-?-?- MH-No VB, LOF.Go od FM. Larc. 28 wk labs pending. Declines tdap. 08/01/25 -?-?-?-?-?-?-?-?-?-?-?-?- 31w 4d 148 lb 9 oz (+18 lb 9 oz) 110/71 -?-?-?-?-?-?-?-?-?-?-?-?- 150 32 -?-?-?-?-?-?-?-?-?-?-?-?- JV- no lof, vagi nal bleeding, or dec fm. + round ligament pain 08/11/25 -?-?-?-?-?-?-?-?-?-?-?-?- 33w 0d 151 lb 5 oz (+21 lb 5 oz) 105/69 Negative -?-?-?-?-?-?-?-?-?-?-?-?- Negative 145 34 -?-?-?-?-?-?-?-?-?-?-?-?- SM- no vb lof go od fm no regular ctx repeat cbc today 08/25/25 -?-?-?-?-?-?-?-?-?-?-?-?- 35w 0d 155 lb 6 oz (+25 lb 6 oz) 121/68 Negative -?-?-?-?-?-?-?-?-?-?-?-?- Negative 150 35 -?-?-?-?-?-?-?-?-?-?-?-?- KW- no vb/lof/ct x. good fm. requesting a bus inspector for delivery if possible. would like to try without epidural. 09/11/25 -?-?-?-?-?-?-?-?-?-?-?-?- 37w 3d 157 lb (+27 lb) 120/67 Negative -?-?-?-?-?-?-?-?-?-?-?-?- Negative 150 36 Cephalic 4 -?-?-?-?-?-?-?-?-?-?-?-?- 80 -2 JV- no lof , vaginal bleeding, or dec fm. 09/18/25 -?-?-?-?-?-?-?-?-?-?-?-?- 38w 3d 157 lb 2 oz (+27 lb 2 oz) 105/55 Negative -?-?-?-?-?-?-?-?-?-?-?-?- Negative 134 38 4 -?-?-?-?-?-?-?-?-?-?-?-?- 80 -2 KV- Good f etal movement. Some irregular ctx over weekend. No LOF or VB. 09/23/25 -?-?-?-?-?-?-?-?-?-?-?-?- 39w 1d 159 lb 1 oz (+29 lb 1 oz) 112/58 Negative -?-?-?-?-?-?-?-?-?-?-?-?- Negative 145 39 Cephalic 5 -?-?-?-?-?-?-?-?-?-?-?-?- 80 -2 KW- no vb/ lof/ctx. good fm. requested no membrane sweep today NST Assessment Assessment Detail: current tracing: FHT: 145, accelerations present, decelerations absent, Moderate variability reactive category I tracing [place]: u/c's every 3-6 mins, lasting 60-110 seconds, palpates moderate. Vital Signs Vital Signs Vital Signs: 09/29/25 00:17 09/29/25 00:17 09/29/25 00:18 Pulse Rate 106 H Blood Pressure 111/73 BP Systolic 111 BP Diastolic 73 Pulse Ox 97 09/29/25 00:18 Pulse Rate 110 H Blood Pressure BP Systolic BP Diastolic Pulse Ox Weight Weight: 155 lb Body Mass Index (BMI) 26.6 Physical Exam Const alert, oriented x3 and no apparent distress General Appearance: cooperative and comfortable Resp normal respiratory effort Resp Narrative: Respirations eased & unlabored. No s/s of respiratory distress. Cardio regular rate and regular rhythm GI GI Narrative: Gravid, non-tender to touch. Manual OB Exam: dilated 6cm, effaced 80% and station 0 Psych mental status grossly normal, affect normal and speech normal Labs Labs Labs: Blood Type A POSITIVE Antibody Screen NEGATIVE Hct, (37-47) 33.5 % L Hgb, (12.0-15.0) 11.5 g/dL L Syphilis Total Ab, (Nonreactive) Nonreactive Rubella IgG Antibody, (Nonreactive) REAC Hep Bs Antigen, (Nonreactive) Nonreactive Hepatitis C Antibody, (Nonreactive) Nonreactive Chlamydia DNA (DAMION), (Negative) Negative N.gonorrhoeae DNA (DAMION), (Negative) Negative HIV 1&2 Antibody, (Nonreactive) Nonreactive Glucose 1 Hr 50 gm, (70-140) 107 mg/dL Assessment & Plan (1) Anemia in : QUALIFIERS: Trimester: third trimester Qualified Code(s): O99.013 - Anemia complicating , third trimester COMMENT: add Fe. Iron levels are now good. (2) Hx of hemorrhage, currently : COMMENT: Pt states passed large clots & had 2 shots (3) Supervision of normal : QUALIFIERS: Normal : other normal Trimester: third trimester Qualified Code(s): Z34.83 - Encounter for supervision of other normal , third trimester COMMENT: [id number], DAISY 09/29/25, surprise Kem Byers, [place] PLAN: Plan Patient presents w/contractions since Noon on 09/28, unable to rest, getting more uncomfortable. Advanced dilation 5cm in office on 09/23/25, desires augmentation. Pain management: plans natural childbirth, but open to an epidural GBS negative Management of any complications:None I have reviewed the [facility] and made any clinically relevant updates. Charges/Coding Multi Select Codes Urinary/Genital Urinary/Genital CPT Codes: No Charge
[2025-09-29] MEDS: Lactated Ringers 1,000 ML 999 ML IV (01:30)
[2025-09-29 01:45] LABS: Syphilis Antibodies Nonreactive (Nonreactive)
[2025-09-29] MEDS: fentaNYL-bupivacaine (epidural) 100 ML BAG EPIDURAL (02:10)
[2025-09-29] MEDS: Oxytocin 15 Units/NS 250ml 15 UNITS/250 ML IV.SOLN 334 UNITS IV (02:40)
--- NOTE | 2025-09-29 02:56 | EX.PCM.OBVAG ---
Assessment & Plan (1) Anemia in : QUALIFIERS: Trimester: third trimester Qualified Code(s): O99.013 - Anemia complicating , third trimester COMMENT: add Fe. Iron levels are now good. (2) Spontaneous vaginal delivery: COMMENT: KMM, , Male, Brix 40 wks 0 days. No complications. PLAN: Plan Patient began pushing and delivered the head in the ROSA ISELA presentation. The head was delivered atraumatically. The anterior and posterior shoulders delivered without complication followed by the rest of the and the was placed on the maternal abdomen. Delayed cord clamping was employed for approximately 3 minutes. Cord was clamped and cut and gentle traction was applied to the cord and the placenta delivered spontaneously immediately following it was noted to be intact with three-vessel cord. The perineum and vagina were inspected noted to be intact. EBL was 200cc. Patient and tolerated delivery well. Maternal Data Information DAISY Calculator Estimated Delivery Date Method Current WG Current Estimate 09/29/25 LMP (Certain) 40w 0d Other Estimates 09/26/25 Ultrasound #1 40w 3d Gestational age: 40 wks 0 days Vaginal Delivery Maternal Presentation Maternal Presentation: Elective Induction Type of Induction: Amniotomy (Due to advanced dilation (5cm since 09/23) & prodromal contractions 12 hrs prior to arrival.) Vaginal Delivery Information Procedure Performed: Spontaneous Vaginal Delivery Surgeon/Practitioner: Dinora Leal Date of Procedure: 09/29/25 Type of anesthesia: Epidural Time of Delivery: 02:29 Findings Presentation: Vertex and ROSA ISELA Amniotic Membrane Rupture Type: Artificial Amniotic Fluid Description: Clear Placental Delivery Description: Spontaneous Placenta Disposition: [facility] Specimen collected: No Cord Vessel Description: 3 Vessels Cord Entanglement: None Infant A Gender: Male (1 minute): 8 (5 minute): 9 Delayed Cord Clamping: Yes Post Vaginal Deli Medications given after delivery: IV Pitocin Episiotomy Description: None Laceration: None Complication Complications: No Multi Select Codes Urinary/Genital Urinary/Genital CPT Codes: 26873 Vaginal Delivery [facility]
--- NOTE | 2025-09-29 03:24 | DCINST_ITS ---
Discharge Instructions DC O2, CPAP, BIPAP needs Home O2 Discharge instructions: No Dressing / Incision May resume sexual activity in: 4-6 weeks Weight Bearing Status: Weight bearing as tolerated Dressing / Incision Call your doctor if you observe: Fever of 101 or Higher, Inability to urinate, Using more than 1 pad per hour, Shortness of breath, Dizziness, Fainting spells, Swelling in the ankles, Chest pain and Calf discomfort Cleanse incision/area with: Soap & Water Follow Up Care Please Follow Up With: [facility] [place] When: 6 weeks Test Results: Test results from this visit will be discussed in further detail at your follow- up appointment, if applicable. Discharge Plan Admission Admit Date/Time: 09/28/25 23:58 Attending Provider: Dinora Leal Instructions Additional Instructions / Restrictions: Rest, Relax & Enjoy baby! Discharge Orders/Prescriptions Prescriptions: No Action PNV no.[id number] 400 mcg-35 mg- 25 mg-5 mg tablet,chewable PO DAILY magnesium 200 mg tablet 300 mg PO DAILY Disposition Disposition (needs filled in before D/C Order can be placed): Home, Self Care
[2025-09-29] MEDS: Oxytocin 15 Units/NS 250ml 15 UNITS/250 ML IV.SOLN 83 UNITS IV (03:30)
[2025-09-29] MEDS: Senna/Docusate Sodium 1 Tablet PO (10:12)
[2025-09-30 02:50] VITALS: BP 115/68; PULSE 74; RESP 16; TEMP 36.6
[2025-09-30 07:12] LABS: Hematocrit 32.6 % (37-47); Hemoglobin 10.7 g/dL (12.0-15.0); Immature Granulocytes Count 0.110 X10^3/uL (0.0-0.0); Mean Corp Hgb Conc 32.8 g/dL (32-36); Mean Corpuscular Volume 100.9 fL (81-99); Mean Platelet Vol. 9.9 fl (6.2-12.0); NRBC Flagged by Analyzer 0 % (0-5); Platelet Count 167 K/mm3 (150-450); RBC Distribution Width CV 13.7 % (11.6-14.6); RBC Distribution Width SD 50.4 fl (35.1-43.9); Red Blood Count 3.23 M/mm3 (4.2-5.4); White Blood Count 11.2 K/mm3 (4.4-11.0)
--- NOTE | 2025-09-30 08:06 | PCM.PN.OB ---
Subjective Subjective Patient doing well without complaints. Tolerating PO. Ambulating and voiding without difficulty. Feeding well. Denies chest pain, shortness of breath, calf pain/swelling, fevers, chills, lightheadedness. Objective Data Objective Data Vital Signs: Vital Signs Temp Pulse Resp BP Pulse Ox O2 Del Method 97.9 F 74 16 115/68 98 Room Air 09/30/25 02:50 09/30/25 02:50 09/30/25 02:50 09/30/25 02:50 09/29/25 16:50 09/30/25 02:50 Oxygen Delivery Method Room Air Weight: 155 lb Body Mass Index (BMI) 26.6 Intake & Output: Intake and Output for Last 24 Hours 09/28/25 09/29/25 09/30/25 23:59 23:59 23:59 Intake Total 1500 / 1500 Output Total 200 / 200 Balance 1300 / 1300 Lab / Micro Data Attestation: I reviewed the patient's lab results. 09/30/25 06:52 Labs: Laboratory Results - last 24 hr 09/30/25 06:52: WBC 11.2 H, RBC 3.23 L, Hgb 10.7 L, Hct 32.6 L, MCV 100.9 H, MCH 33.1 H, MCHC 32.8, RDW Std Deviation 50.4 H, RDW Coeff of Parmjit 13.7, Plt Count 167, MPV 9.9, Immature Gran % (Auto) 1.000 H, Neut % (Auto) 72.7 H, Lymph % (Auto) 17.7 L, Warrick % (Auto) 7.5, Eos % (Auto) 0.7, Baso % (Auto) 0.4, Absolute Neuts (auto) 8.1 H, Absolute Lymphs (auto) 1.98, Nucleated RBC % 0 ROS Constitutional Constitutional: Reports systems reviewed and no addt'l complaints, except as documented; Denies anorexia or headache(s) Cardiovascular Cardiovascular: Reports systems reviewed and no addt'l complaints, except as documented; Denies dizziness, dyspnea, nausea or tachypnea Respiratory/Chest Respiratory/Chest: Reports systems reviewed and no addt'l complaints, except as documented; Denies cough, dyspnea, shortness of breath at rest or tachypnea Gastrointestinal Gastrointestinal: Reports systems reviewed and no addt'l complaints, except as documented; Denies abdominal pain, constipation or nausea Genitourinary Genitourinary: Reports systems reviewed and no addt'l complaints, except as documented; Denies burning urination, difficulty urinating, dysuria, urinary frequency or urinary incontinence Musculoskeletal Musculoskeletal: Reports systems reviewed and no addt'l complaints, except as documented Integumentary Integumentary: Reports systems reviewed and no addt'l complaints, except as documented Neurologic Neurologic: Reports systems reviewed and no addt'l complaints, except as documented; Denies abnormal speech, dizziness or headache(s) Psychiatric Psychiatric: Reports systems reviewed and no addt'l complaints, except as documented Endocrine Endocrinology: Reports systems reviewed and no addt'l complaints, except as documented Hematologic/Lymphatic Hematologic/Lymphatic: Reports systems reviewed and no addt'l complaints, except as documented Physical Exam Const alert, oriented x3 and no apparent distress Neck full ROM Resp normal respiratory effort, normal air movement and no retractions Effort and Inspection: able to speak in complete sentences and symmetric chest movement GI soft to palpation Bladder / Kidney Exam: bladder normal to palpation Uterus Palpation: uterus fundus firm Extremity normal to inspection and full ROM Psych mental status grossly normal, thought process normal and cooperative Assessment & Plan (1) Spontaneous vaginal delivery: COMMENT: KMM, , Male, Brix 40 wks 0 days. No complications. PLAN: s/p PPD # 1 1. routine post delivery care 2. breast feeding- support given 3. rh positive 4. rubella immune 5. Discharge home (2) Anemia in : QUALIFIERS: Trimester: third trimester Qualified Code(s): O99.013 - Anemia complicating , third trimester COMMENT: add Fe. Iron levels are now good. (3) Hx of hemorrhage, currently : COMMENT: Pt states passed large clots & had 2 shots (4) Supervision of normal : QUALIFIERS: Normal : other normal Trimester: third trimester Qualified Code(s): Z34.83 - Encounter for supervision of other normal , third trimester COMMENT: [id number], DAISY 09/29/25, surprise Kem Byers, [place] (5) : QUALIFIERS: Weeks of gestation: 39 weeks Qualified Code(s): Z3A.39 - 39 weeks gestation of COMMENT: GBS negative, declined NIPT & Carrier testing. anatomy done and ventricular septum not fully visualized patient declined follow up. Charges/Coding Multi Select Codes Urinary/Genital Urinary/Genital CPT Codes: No Charge
[2025-09-30 09:48] VITALS: BP 109/68; PULSE 81; RESP 16; TEMP 36.6; O2SAT 100
== END 2025-09-30 09:45 | disposition home or self-care (01) | DRG 807 ==
PROVIDERS: Admitting Provider Midwife; Visit Provider Midwife
DX: O80 Encounter for full-term uncomplicated delivery (principal); Z37.0 Single live birth; Z3A.40 40 weeks gestation of pregnancy
CPT/HCPCS: 59025; 59050; 85025; 86780; 86850; 86900; 86901; 99221; G0378